=== PATIENT | male | born 1965 | race Caucasian/White ===

== ENCOUNTER 2019-06-20 13:28 | Inpatient (IN) ==
[2019-06-20 14:02] LABS: Basophils % 0.4 %; Eosinophils # 0.2 K/mcL (0.0-0.6); Eosinophils % 2.7 %; Hematocrit 26.2 % (37.5-50.1); Hemoglobin 8.1 g/dL (12.9-16.9); Immature Granulocytes % 0.4 % (0-4); Lymphocytes # 1.2 K/mcL (0.6-4.6); Lymphocytes % 16.6 %; Mean Corpuscular HGB Conc 30.9 g/dL (31.6-35.5); Mean Corpuscular Hemoglobin 29.1 pg (28.0-33.3); Mean Corpuscular Volume 94.2 fL (83.0-100.0); Mean Platelet Volume 10.7 fL (9.4-12.4); Monocytes # 0.5 K/mcL (0.0-1.3); Monocytes % 7.1 %; Neutrophils # 5.3 K/mcL (1.6-8.9); Platelet Count 280 K/mcL (140-400); Red Blood Count 2.78 M/mcL (4.19-5.50); Red Cell Distribution Width 13.8 % (11.5-14.5); Segmented Neutrophils % 72.8 %; White Blood Count 7.3 K/mcL (4.3-11.1)
[2019-06-20 14:09] LABS: Prothrombin Time 11.4 Seconds (9.4-12.1)
[2019-06-20 14:29] LABS: Bilirubin,Urine Negative (Negative); Blood,Urine Moderate (Negative); Clarity,Urine Clear (Clear); Color,Urine Yellow (Yellow); Glucose,Urine (UA) 100 mg/dL (Normal); Ketones,Urine Negative (Negative); Leukocyte Esterase,Urine Negative (Negative); Nitrite,Urine Negative (Negative); PH,Urine 5.5 pH Units (5.0-8.0); Protein,Urine >=300 mg/dL (Neg-Trace); Specific Gravity,Urine 1.015 (1.010-1.025); Urobilinogen,Urine Normal (Normal)
[2019-06-20 14:30] LABS: Calcium 7.4 mg/dL (8.6-10.3); Potassium 5.1 mEq/L (3.5-5.1)
[2019-06-20 14:31] LABS: Bacteria,Urine None Seen per hpf (None-Few); Hyaline Casts,Urine None Seen per lpf (None-Few); Squamous Epithelial Cell,Urine Many per lpf (None-Few)
[2019-06-20] MEDS ORDERED: Naloxone 0.4 MG/ML INJ IVP PRN (15:45)
[2019-06-20] MEDS ORDERED: Nicotine 2 MG GUM BC PRN (15:49)
[2019-06-20] MEDS ORDERED: Dextrose Gel 15 GM/37.5 ML TUBE PO PRN ×2 (15:50)
[2019-06-20] MEDS ORDERED: D5% in Water 1,000 ML IVC PRN (15:50)
[2019-06-20] MEDS ORDERED: *HR* Dextrose 50 % in Water (Syg) 50 ML SYRINGE IVP PRN (15:50)
[2019-06-20] MEDS: Insulin LISPRO 300 UNITS/3 ML VIAL SQ SCH ×2 (18:06→21:34)
[2019-06-20] MEDS: Nicotine 21 MG PATCH.TD24 TD SCH (18:14)
[2019-06-20] MEDS ORDERED: carvediloL 25 MG TABLET PO SCH (21:00)
[2019-06-21] MEDS: Levothyroxine 25 MCG TABLET PO SCH (05:30)
[2019-06-21 05:59] LABS: Basophils # 0.1 K/mcL (0.0-0.2); Basophils % 0.7 %; Eosinophils # 0.2 K/mcL (0.0-0.6); Eosinophils % 2.7 %; Hematocrit 23.8 % (37.5-50.1); Hemoglobin 7.5 g/dL (12.9-16.9); Immature Granulocytes % 0.8 % (0-4); Lymphocytes # 1.5 K/mcL (0.6-4.6); Lymphocytes % 19.1 %; Mean Corpuscular HGB Conc 31.5 g/dL (31.6-35.5); Mean Corpuscular Volume 91.9 fL (83.0-100.0); Mean Platelet Volume 11.1 fL (9.4-12.4); Monocytes # 0.5 K/mcL (0.0-1.3); Monocytes % 7.1 %; Neutrophils # 5.3 K/mcL (1.6-8.9); Platelet Count 282 K/mcL (140-400); Red Blood Count 2.59 M/mcL (4.19-5.50); Red Cell Distribution Width 13.9 % (11.5-14.5); Segmented Neutrophils % 69.6 %; White Blood Count 7.7 K/mcL (4.3-11.1)
[2019-06-21 06:14] LABS: Calcium 6.9 mg/dL (8.6-10.3); Phosphorous 6.2 mg/dL (2.7-4.5); Potassium 4.9 mEq/L (3.5-5.1)
[2019-06-21 06:15] LABS: % Iron Saturation 5 % (20-55); Iron 14 mcg/dL (65-175); Transferrin 193 mg/dL (203-362)
[2019-06-21] MEDS ORDERED: 0.9 % Sodium Chloride 250 ML IVC PRN (06:50)
[2019-06-21] MEDS ORDERED: 0.9 % Sodium Chloride 1,000 ML PRIME SCH (07:00)
[2019-06-21] MEDS ORDERED: carvediloL 25 MG TABLET PO SCH ×2 (08:00→17:00)
[2019-06-21 08:48] LABS: Hepatitis B Surface Antibody 4.58 mIU/mL
[2019-06-21 09:00] LABS: Hepatitis B Surface Antigen Nonreactive (Nonreactive)
[2019-06-21] MEDS ORDERED: NIFEdipine XL (24 HR) 60 MG TAB.ER.24 PO SCH (09:00)
[2019-06-21] MEDS: Insulin LISPRO 300 UNITS/3 ML VIAL SQ SCH ×4 (09:28→20:35)
[2019-06-21] MEDS: Nicotine 21 MG PATCH.TD24 TD SCH (09:28)
[2019-06-21] MEDS ORDERED: Ferumoxytol 510 MG in 0.9 % Sodium Chloride 100 ML IVPB ONE (11:40)
[2019-06-21] MEDS ORDERED: Heparin 1,000 UNITS/500 mL 500 ML ONE (13:23)
[2019-06-21] MEDS ORDERED: *HR* FentaNYL (PF) 100 MCG/2 ML VIAL IVP ONE (14:51)
[2019-06-21] MEDS ORDERED: *HR* Midazolam HCl 2 MG/2 ML VIAL IVP ONE (14:51)
[2019-06-21] MEDS ORDERED: 0.9 % Sodium Chloride 500 ML ONE (14:58)
[2019-06-21] MEDS ORDERED: CeFAZolin Premix DUPLEX 2,000 MG/50 ML BAG IVPB ONE (15:15)
[2019-06-21] MEDS: *HR* Heparin 5,000 UNIT/ML VIAL SQ SCH (17:05)
[2019-06-21 20:32] LABS: Hepatitis B Surface Antigen Nonreactive (Nonreactive)
[2019-06-21] MEDS ORDERED: *HR* OxyCODONE Immed Rel 5 MG TABLET PO ONE (20:43)
[2019-06-21 21:02] LABS: Hepatitis B Core IgM Nonreactive (Nonreactive)
[2019-06-21 21:03] LABS: Hepatitis A Antibody IgM Nonreactive (Nonreactive); Hepatitis C Virus Antibody Nonreactive (Nonreactive)
[2019-06-21 21:04] LABS: HIV-1&2 Antibody & p24 Ag Nonreactive (Nonreactive)
[2019-06-22] MEDS: *HR* Heparin 5,000 UNIT/ML VIAL SQ SCH (05:36)
[2019-06-22] MEDS: Levothyroxine 25 MCG TABLET PO SCH (05:36)
[2019-06-22 06:06] LABS: Hematocrit 25.3 % (37.5-50.1); Hemoglobin 8.1 g/dL (12.9-16.9); Mean Corpuscular Hemoglobin 28.5 pg (28.0-33.3); Mean Corpuscular Volume 89.1 fL (83.0-100.0); Mean Platelet Volume 10.7 fL (9.4-12.4); Platelet Count 284 K/mcL (140-400); Red Blood Count 2.84 M/mcL (4.19-5.50); White Blood Count 9.3 K/mcL (4.3-11.1)
[2019-06-22 07:02] LABS: Calcium 7.4 mg/dL (8.6-10.3); Potassium 4.3 mEq/L (3.5-5.1)
[2019-06-22] MEDS ORDERED: 0.9 % Sodium Chloride 250 ML IVC PRN (07:38)
[2019-06-22 07:47] VITALS: BP 171/85
[2019-06-22] MEDS: Insulin LISPRO 300 UNITS/3 ML VIAL SQ SCH (07:56)
[2019-06-22] MEDS: Nicotine 21 MG PATCH.TD24 TD SCH (07:57)
== END 2019-06-22 11:24 | disposition left against medical advice (07) | DRG 683 ==
LOC: EMEROOARM 13:28 → 2ANU 16:59
PROVIDERS: ADMIT Internal Medicine; ATTEND Internal Medicine
PROC: IRPERMA (2019-06-21 14:45)

== ENCOUNTER 2019-07-18 17:38 | Inpatient (IN) ==
[2019-07-18] MEDS ORDERED: Ipratropium/Albuterol Neb 3 ML ONE (17:40)
[2019-07-18] MEDS ORDERED: levoFLOXacin 750 MG/150 ML 750 MG/150 ML BAG IVPB ONE (17:43)
[2019-07-18] MEDS ORDERED: Piperacillin/Tazobactam 3.375 GM in Water for inj. (sterile) 20 ML IVP ONE (17:43)
[2019-07-18] MEDS ORDERED: Nitroglycerin 25 MG/250 ML INFUS..BTL IVC ONE (17:43)
--- NOTE | 2019-07-18 17:44 | Emergency Department Note ---
Disposition Clinical Impression: ESRD (end stage renal disease), Hyperkalemia, Elevated troponin Right lower lobe pneumonia Qualifiers: Pneumonia type: due to unspecified organism Qualified Code(s): J18.1 - Lobar pneumonia, unspecified organism Sepsis Qualifiers: Sepsis type: sepsis due to unspecified organism Sepsis acute organ dysfunction status: unspecified Qualified Code(s): A41.9 - Sepsis, unspecified organism Pulmonary edema Qualifiers: Chronicity: acute Qualified Code(s): J81.0 - Acute pulmonary edema Dyspnea Qualifiers: Dyspnea type: unspecified Qualified Code(s): R06.00 - Dyspnea, unspecified Disposition: Admitted As Inpatient Forms: ED Satisfaction Letter Time of Disposition: 19:06 General Adult HPI - General Chief complaint: ED Shortness of Breath/Dyspnea Time Seen by Provider: 07/18/19 17:42 Source: patient, EMS Mode of arrival: EMS Limitations: no limitations Nursing Notes Reviewed: Yes Vital Signs Reviewed: Yes - History of Present Illness HPI Narrative: Patient is a 54-year-old male with a past medical history including hypertension, diabetes, CHF, end-stage renal disease and recently started dialysis however has not had dialysis in approximately 2 weeks, presenting with a chief complaint of shortness of breath since this morning. The patient states he has not done dialysis secondary to insurance reasons and has not had it in approximately 2 weeks. This morning, the patient started to become short of breath. He had a follow-up appointment with his primary care physician. Shortness of breath was progressively worsening this afternoon to the point where he was unable to ambulate or talk. He denies any chest pain with it. Primary care physician had a concern for flash pulmonary edema and gave him Lasix and EMS was called and brought the patient here. In route, the patient was placed on 4 L of oxygen with oxygen saturation 94%. He was then eventually placed on CPAP with some improvement in his oxygenation. He did have a heart rate in the 140s and systolic blood pressure was 240 per EMS. Patient denies any change in cough, denies recent fevers or chills, chest pain, abdominal pain, nausea or vomiting, diarrhea. Pain Scale: 0 - Related Data Home Medications Medication Instructions Recorded Confirmed Carvedilol 12.5 mg PO BID 06/20/19 07/16/19 Glimepiride [Amaryl] 4 mg PO DAILY 06/20/19 07/16/19 Levothyroxine [Synthroid] 25 mcg PO DAILY 06/20/19 07/16/19 Lisinopril [Zestril] 20 mg PO DAILY 06/22/19 07/16/19 Allergies Allergy/AdvReac Type Severity Reaction Status Date / Time No Known Allergies Allergy Verified 07/16/19 04:48 All systems ED: reviewed and negative except as stated. Review of Systems: As Per HPI Constitutional: Denies: fever, chills Cardiovascular: Denies: chest pain Respiratory: Reports: cough, dyspnea Gastrointestinal: Denies: abdominal pain, nausea, vomiting, diarrhea Musculoskeletal: Denies: back pain Past Medical History - Past Medical History Attestation: Yes The following information was validated with the patient. Source: patient Medical history: Reports: CHF, diabetes, hypertension, renal disease Surgical history: Reports: no surgical history Psychiatric history: Reports: no psych history - Social History Smoking Status: Current every day smoker Smokeless Tobacco Status: No Alcohol use: Reports: occasionally Drug use: Reports: none Physical Exam - General Limitations: no limitations General appearance: alert, in distress - Head Head exam: atraumatic, normocephalic - Eye Eye exam: Present: normal appearance, EOMI - ENT ENT exam: normal exam, normal oropharynx - Neck Neck exam: Present: normal inspection, trachea midline, other (no jvd) - Chest Chest inspection: Present: normal inspection, symmetric chest wall rise - Respiratory Respiratory exam: Present: other (Diminished breath sounds bilaterally with scattered crackles) - Cardiovascular Cardiovascular exam: Present: tachycardia, normal heart sounds - Abdominal Exam Abdominal exam: Present: soft, Non-Tender. Absent: distention - Extremities Exam Extremities exam: Present: normal capillary refill, other (2+ pitting bilateral lower extremity edema). Absent: calf tenderness - Neurological Exam Neurological exam: Present: alert, oriented X3 - Psychiatric Psychiatric exam: Present: normal affect, normal mood - Skin Skin exam: Present: warm, dry. Absent: diaphoresis, pallor Course Vital Signs Temperature 97.9 F 07/18/19 17:40 Pulse Rate 122 07/18/19 17:40 Respiratory Rate 22 07/18/19 17:40 Blood Pressure 217/129 07/18/19 17:40 O2 Sat by Pulse Oximetry 100 07/18/19 17:40 Temperature 97.9 F 07/18/19 17:40 Pulse Rate 117 07/18/19 18:52 Respiratory Rate 16 07/18/19 18:52 Blood Pressure 162/100 07/18/19 18:52 O2 Sat by Pulse Oximetry 100 07/18/19 18:52 Oxygen Delivery Oxygen Delivery Bipap Medical Decision Making - [facility] Narrative Medical decision making narrative: Patient presented on CPAP and he was transitioned to BiPAP with respiratory at bedside. Initial blood pressure was 217/129. He was also tachycardic with heart rate in the 120s. His significant lower extremity pitting edema 2+ bilaterally. He has not had dialysis in 2 weeks. He has diminished breath sounds bilaterally with scattered crackles. Patient is afebrile however meets SIRS criteria low obtain lactate, blood cultures, treat for possible pneumonia with vancomycin, Zosyn, azithromycin. We will hold off on IV fluids as we do have a concern for fluid overload, flash pulmonary edema as the patient has not had dialysis in several weeks. Troponin, BNP, CBC, BMP, will also be obtained. Chest x-ray was obtained. Patient was started on a nitroglycerin drip. After several minutes on BiPAP, the patient did have improvement in his breathing and was able to hold the [place] station. Patient does state he is full code. Patient has a permacath. 18:20 Patient remained stable on BiPAP. Blood pressures did improve. Potassium is 5.8 and creatinine is elevated greater than 6. We will give insulin, dextrose, calcium gluconate, albuterol treatment. He also has an elevated troponin of 0.04 notified by lab. EKG does show tall T wave changes in lead II and lead III. 19:00 Is discussed with nephrology, Dr. Thomas, and patient will have dialysis tonight. The patient was accepted for admission by Dr. Pedro, hospitalist. - Medical Records Medical records reviewed: Yes I reviewed the patient's medical records. - Lab Data Lab results reviewed: Yes I reviewed the patient's lab results. Result diagrams: 07/18/19 17:39 07/18/19 17:39 Lab Results 07/18/19 07/18/19 07/18/19 Range/Units 17:39 17:39 17:39 WBC 12.3 H (4.3-11.1) K/mcL RBC 3.00 L (4.19-5.50) M/mcL Hgb 8.7 L (12.9-16.9) g/dL Hct 28.0 L (37.5-50.1) % MCV 93.3 (83.0-100.0) fL MCH 29.0 (28.0-33.3) pg MCHC 31.1 L (31.6-35.5) g/dL RDW 14.8 H (11.5-14.5) % Plt Count 292 (140-400) K/mcL MPV 11.0 (9.4-12.4) fL Immature Gran % 0.7 (0-4) % Seg Neutrophils % 81.6 % Lymphocytes % 11.7 % Monocytes % 3.5 % Eosinophils % 1.8 % Basophils % 0.7 % Neutrophils # 10.0 H (1.6-8.9) K/mcL Lymphocytes # 1.4 (0.6-4.6) K/mcL Monocytes # 0.4 (0.0-1.3) K/mcL Eosinophils # 0.2 (0.0-0.6) K/mcL Basophils # 0.1 (0.0-0.2) K/mcL PT 11.2 (9.4-12.1) Seconds INR 1.0 APTT 33.5 (26.0-36.0) Seconds ABG pH (7.32-7.45) pH Units ABG pCO2 (35-45) mmHg ABG pO2 (85-104) mmHg ABG HCO3 (21-27) mEq/L ABG Total CO2 (20-26) mEq/L ABG O2 Saturation (95-98) % ABG Base Excess (-2 to 3) mEq/L O2 Delivery Device Inspired O2 (1-15=lpm [id number]=%) PEEP cm H2O Sodium 139 (136-145) mEq/L Potassium 5.8 H (3.5-5.1) mEq/L Chloride 113 H (98-107) mEq/L Carbon Dioxide 13 L (23-29) mEq/L BUN 95 H (6-20) mg/dL Creatinine 6.73 H (0.70-1.30) mg/dL Est GFR ( Amer) 10 L (> 60) Est GFR (Non-Af Amer) 9 L (> 60) BUN/Creatinine Ratio 14 (6-26) Glucose 213 H (70-105) mg/dL Calculated Osmolality 324 H (280-300) Lactic Acid (0.5-2.2) mmol/L Calcium 7.4 L (8.6-10.3) mg/dL Phosphorus 6.6 H (2.7-4.5) mg/dL Magnesium 1.7 (1.6-2.6) mg/dL Total Bilirubin 0.2 L (0.3-1.0) mg/dL Direct Bilirubin 0.0 (0.0-0.2) mg/dL Indirect Bilirubin 0.2 (0.0-1.2) mg/dL AST 27 (13-39) Units/L ALT 31 (7-52) Units/L Alkaline Phosphatase 132 H (34-104) Units/L Troponin I 0.04 H* (< 0.04) ng/mL B-Natriuretic Peptide (Less than 100) pg/mL Serum Total Protein 7.0 (6.4-8.9) g/dL Albumin 3.6 (3.5-5.7) g/dL Globulin 3.4 (2.4-3.5) g/dL Albumin/Globulin Ratio 1.1 (1.1-2.2) 07/18/19 07/18/19 07/18/19 Range/Units 17:39 17:39 17:42 WBC (4.3-11.1) K/mcL RBC (4.19-5.50) M/mcL Hgb (12.9-16.9) g/dL Hct (37.5-50.1) % MCV (83.0-100.0) fL MCH (28.0-33.3) pg MCHC (31.6-35.5) g/dL RDW (11.5-14.5) % Plt Count (140-400) K/mcL MPV (9.4-12.4) fL Immature Gran % (0-4) % Seg Neutrophils % % Lymphocytes % % Monocytes % % Eosinophils % % Basophils % % Neutrophils # (1.6-8.9) K/mcL Lymphocytes # (0.6-4.6) K/mcL Monocytes # (0.0-1.3) K/mcL Eosinophils # (0.0-0.6) K/mcL Basophils # (0.0-0.2) K/mcL PT (9.4-12.1) Seconds INR APTT (26.0-36.0) Seconds ABG pH 7.25 L (7.32-7.45) pH Units ABG pCO2 26 L (35-45) mmHg ABG pO2 508 H (85-104) mmHg ABG HCO3 11 L (21-27) mEq/L ABG Total CO2 12 L (20-26) mEq/L ABG O2 Saturation 100 H (95-98) % ABG Base Excess -14 L (-2 to 3) mEq/L O2 Delivery Device BiPAP Inspired O2 100.0 (1-15=lpm [id number]=%) PEEP 7 cm H2O Sodium (136-145) mEq/L Potassium (3.5-5.1) mEq/L Chloride (98-107) mEq/L Carbon Dioxide (23-29) mEq/L BUN (6-20) mg/dL Creatinine (0.70-1.30) mg/dL Est GFR ( Amer) (> 60) Est GFR (Non-Af Amer) (> 60) BUN/Creatinine Ratio (6-26) Glucose (70-105) mg/dL Calculated Osmolality (280-300) Lactic Acid 0.7 (0.5-2.2) mmol/L Calcium (8.6-10.3) mg/dL Phosphorus (2.7-4.5) mg/dL Magnesium (1.6-2.6) mg/dL Total Bilirubin (0.3-1.0) mg/dL Direct Bilirubin (0.0-0.2) mg/dL Indirect Bilirubin (0.0-1.2) mg/dL AST (13-39) Units/L ALT (7-52) Units/L Alkaline Phosphatase (34-104) Units/L Troponin I (< 0.04) ng/mL B-Natriuretic Peptide 1063 H (Less than 100) pg/mL Serum Total Protein (6.4-8.9) g/dL Albumin (3.5-5.7) g/dL Globulin (2.4-3.5) g/dL Albumin/Globulin Ratio (1.1-2.2) - Radiology Data Radiology results reviewed: Yes I reviewed the patient's radiology results. Chest X-Ray 07/18/19 00:00 IMPRESSION: 1. New right base airspace opacity. In the proper clinical setting, finding would be indicative of pneumonia. 2. Diffuse reticulation of the interstitium, new since prior exam. Differential includes interstitial edema. D/ / Bob Georges MD / Bob Georges MD Interpreting Provider: Bob Georges MD Attestation Statement - Attestation Attestation: Corinne Glasgow D.O., examined this patient and my medical decision-making was reviewed with the Resident Physician. I agree with the documented findings, disposition and treatment plan as described except to the extent set forth below.
[2019-07-18 17:49] LABS: ABG Base Excess -14 mEq/L (-2 to 3); ABG HCO3 11 mEq/L (21-27); ABG Oxygen Saturation 100 % (95-98); ABG PCO2 26 mmHg (35-45); ABG PH 7.25 pH Units (7.32-7.45); ABG PO2 508 mmHg (85-104); ABG TCO2 12 mEq/L (20-26); Blood Gas PEEP 7 cm H2O
[2019-07-18] MEDS ORDERED: Piperacillin/Tazobactam 3.375 GM in 0.9 % Sodium Chloride Mini Bag 100 ML IVPB ONE (17:49)
[2019-07-18] MEDS: Nitroglycerin 25 MG/250 ML INFUS..BTL IVC SCH (17:50)
--- NOTE | 2019-07-18 17:56 | Emergency Department Note ---
Disposition Clinical Impression: ESRD (end stage renal disease), Hyperkalemia, Elevated troponin Right lower lobe pneumonia Qualifiers: Pneumonia type: due to unspecified organism Qualified Code(s): J18.1 - Lobar pneumonia, unspecified organism Sepsis Qualifiers: Sepsis type: sepsis due to unspecified organism Sepsis acute organ dysfunction status: unspecified Qualified Code(s): A41.9 - Sepsis, unspecified organism Pulmonary edema Qualifiers: Chronicity: acute Qualified Code(s): J81.0 - Acute pulmonary edema Dyspnea Qualifiers: Dyspnea type: unspecified Qualified Code(s): R06.00 - Dyspnea, unspecified Disposition: Admitted As Inpatient Condition: Fair Forms: ED Satisfaction Letter Time of Disposition: 19:03 General Adult HPI - General Chief complaint: ED Shortness of Breath/Dyspnea Stated complaint: Shortness of breath Time Seen by Provider: 07/18/19 17:42 Source: patient, EMS Mode of arrival: EMS Limitations: no limitations Nursing Notes Reviewed: Yes Vital Signs Reviewed: Yes - History of Present Illness Pt Subjective Complaint: Shortness of breath Pain Scale: 0 - Related Data Home Medications Medication Instructions Recorded Confirmed Carvedilol 12.5 mg PO BID 06/20/19 07/18/19 Glimepiride [Amaryl] 4 mg PO DAILY 06/20/19 07/18/19 Levothyroxine [Synthroid] 25 mcg PO DAILY 06/20/19 07/18/19 Lisinopril [Zestril] 20 mg PO DAILY 06/22/19 07/18/19 Allergies Allergy/AdvReac Type Severity Reaction Status Date / Time No Known Allergies Allergy Verified 07/16/19 04:48 Past Medical History - Past Medical History Medical history: Reports: CHF, diabetes, hypertension, renal disease Surgical history: Reports: no surgical history Psychiatric history: Reports: no psych history - Social History Smoking Status: Current every day smoker Smokeless Tobacco Status: No Alcohol use: Reports: occasionally Drug use: Reports: none Physical Exam - General Limitations: no limitations General appearance: alert, in distress Course Vital Signs Temperature 97.9 F 07/18/19 17:40 Pulse Rate 122 07/18/19 17:40 Respiratory Rate 22 07/18/19 17:40 Blood Pressure 217/129 07/18/19 17:40 O2 Sat by Pulse Oximetry 100 07/18/19 17:40 Temperature 97.9 F 07/18/19 17:40 Pulse Rate 117 07/18/19 18:52 Respiratory Rate 16 07/18/19 18:52 Blood Pressure 162/100 07/18/19 18:52 O2 Sat by Pulse Oximetry 100 07/18/19 18:52 Oxygen Delivery Oxygen Delivery Bipap Medical Decision Making - Lab Data Lab results reviewed: Yes I reviewed the patient's lab results. Result diagrams: 07/18/19 17:39 07/18/19 17:39 Lab Results 07/18/19 07/18/19 07/18/19 Range/Units 17:39 17:39 17:39 WBC 12.3 H (4.3-11.1) K/mcL RBC 3.00 L (4.19-5.50) M/mcL Hgb 8.7 L (12.9-16.9) g/dL Hct 28.0 L (37.5-50.1) % MCV 93.3 (83.0-100.0) fL MCH 29.0 (28.0-33.3) pg MCHC 31.1 L (31.6-35.5) g/dL RDW 14.8 H (11.5-14.5) % Plt Count 292 (140-400) K/mcL MPV 11.0 (9.4-12.4) fL Immature Gran % 0.7 (0-4) % Seg Neutrophils % 81.6 % Lymphocytes % 11.7 % Monocytes % 3.5 % Eosinophils % 1.8 % Basophils % 0.7 % Neutrophils # 10.0 H (1.6-8.9) K/mcL Lymphocytes # 1.4 (0.6-4.6) K/mcL Monocytes # 0.4 (0.0-1.3) K/mcL Eosinophils # 0.2 (0.0-0.6) K/mcL Basophils # 0.1 (0.0-0.2) K/mcL PT 11.2 (9.4-12.1) Seconds INR 1.0 APTT 33.5 (26.0-36.0) Seconds ABG pH (7.32-7.45) pH Units ABG pCO2 (35-45) mmHg ABG pO2 (85-104) mmHg ABG HCO3 (21-27) mEq/L ABG Total CO2 (20-26) mEq/L ABG O2 Saturation (95-98) % ABG Base Excess (-2 to 3) mEq/L O2 Delivery Device Inspired O2 (1-15=lpm hr98-350=%) PEEP cm H2O Sodium 139 (136-145) mEq/L Potassium 5.8 H (3.5-5.1) mEq/L Chloride 113 H (98-107) mEq/L Carbon Dioxide 13 L (23-29) mEq/L BUN 95 H (6-20) mg/dL Creatinine 6.73 H (0.70-1.30) mg/dL Est GFR ( Amer) 10 L (> 60) Est GFR (Non-Af Amer) 9 L (> 60) BUN/Creatinine Ratio 14 (6-26) Glucose 213 H (70-105) mg/dL Calculated Osmolality 324 H (280-300) Lactic Acid (0.5-2.2) mmol/L Calcium 7.4 L (8.6-10.3) mg/dL Phosphorus 6.6 H (2.7-4.5) mg/dL Magnesium 1.7 (1.6-2.6) mg/dL Total Bilirubin 0.2 L (0.3-1.0) mg/dL Direct Bilirubin 0.0 (0.0-0.2) mg/dL Indirect Bilirubin 0.2 (0.0-1.2) mg/dL AST 27 (13-39) Units/L ALT 31 (7-52) Units/L Alkaline Phosphatase 132 H (34-104) Units/L Troponin I 0.04 H* (< 0.04) ng/mL B-Natriuretic Peptide (Less than 100) pg/mL Serum Total Protein 7.0 (6.4-8.9) g/dL Albumin 3.6 (3.5-5.7) g/dL Globulin 3.4 (2.4-3.5) g/dL Albumin/Globulin Ratio 1.1 (1.1-2.2) 07/18/19 07/18/19 07/18/19 Range/Units 17:39 17:39 17:42 WBC (4.3-11.1) K/mcL RBC (4.19-5.50) M/mcL Hgb (12.9-16.9) g/dL Hct (37.5-50.1) % MCV (83.0-100.0) fL MCH (28.0-33.3) pg MCHC (31.6-35.5) g/dL RDW (11.5-14.5) % Plt Count (140-400) K/mcL MPV (9.4-12.4) fL Immature Gran % (0-4) % Seg Neutrophils % % Lymphocytes % % Monocytes % % Eosinophils % % Basophils % % Neutrophils # (1.6-8.9) K/mcL Lymphocytes # (0.6-4.6) K/mcL Monocytes # (0.0-1.3) K/mcL Eosinophils # (0.0-0.6) K/mcL Basophils # (0.0-0.2) K/mcL PT (9.4-12.1) Seconds INR APTT (26.0-36.0) Seconds ABG pH 7.25 L (7.32-7.45) pH Units ABG pCO2 26 L (35-45) mmHg ABG pO2 508 H (85-104) mmHg ABG HCO3 11 L (21-27) mEq/L ABG Total CO2 12 L (20-26) mEq/L ABG O2 Saturation 100 H (95-98) % ABG Base Excess -14 L (-2 to 3) mEq/L O2 Delivery Device BiPAP Inspired O2 100.0 (1-15=lpm ov02-136=%) PEEP 7 cm H2O Sodium (136-145) mEq/L Potassium (3.5-5.1) mEq/L Chloride (98-107) mEq/L Carbon Dioxide (23-29) mEq/L BUN (6-20) mg/dL Creatinine (0.70-1.30) mg/dL Est GFR ( Amer) (> 60) Est GFR (Non-Af Amer) (> 60) BUN/Creatinine Ratio (6-26) Glucose (70-105) mg/dL Calculated Osmolality (280-300) Lactic Acid 0.7 (0.5-2.2) mmol/L Calcium (8.6-10.3) mg/dL Phosphorus (2.7-4.5) mg/dL Magnesium (1.6-2.6) mg/dL Total Bilirubin (0.3-1.0) mg/dL Direct Bilirubin (0.0-0.2) mg/dL Indirect Bilirubin (0.0-1.2) mg/dL AST (13-39) Units/L ALT (7-52) Units/L Alkaline Phosphatase (34-104) Units/L Troponin I (< 0.04) ng/mL B-Natriuretic Peptide 1063 H (Less than 100) pg/mL Serum Total Protein (6.4-8.9) g/dL Albumin (3.5-5.7) g/dL Globulin (2.4-3.5) g/dL Albumin/Globulin Ratio (1.1-2.2) - Radiology Data Radiology results reviewed: Yes I reviewed the patient's radiology results. Chest X-Ray 07/18/19 00:00 IMPRESSION: 1. New right base airspace opacity. In the proper clinical setting, finding would be indicative of pneumonia. 2. Diffuse reticulation of the interstitium, new since prior exam. Differential includes interstitial edema. D/ / Bob Georges MD / Bob Georges MD Interpreting Provider: Bob Georges MD Critical Care Time Critical Care Time: Yes Total Critical Care Time: 35 Attestation: Critical care time is going separable billable procedures of 35 minutes given the patient's abnormal vital signs, respiratory distress requiring and NIPPV, in conjunction with coordination with specialty care and admission. [place] - [place] Situation: Demographics, MOA Background: Presenting Complaint, Relevant PMH, Meds, & Allergies Assessment: Vital Signs, Course and respsone to treatment, Exam Concerns, Patient/Family Expectation, Pertinant Lab Results Recommendation: Barrier(s) to disposition, Recommendation based on pending studies, treatments, or consults SRaimundo Report Given to: Dr. Willis Mcdonough Repor Time: 19:03 Attestation Statement - Attestation Attestation: Corinne Glasgow D.O., examined this patient and my medical decision-making was reviewed with the Resident Physician. I agree with the documented findings, disposition and treatment plan as described except to the extent set forth below. This is a 54-year-old male with a history of ESRD recently started on dialysis last treatment was approximately 2 weeks ago who presents via EMS due to respiratory distress. The patient states he was seen by his PCP today. He felt fine yesterday but has had a cough today and felt increasingly short of breath. Patient was started on nasal cannula then CPAP for work of breathing in route. EMS reports he was given a DuoNeb treatment as well as 40 more grams of Lasix. He states he has not had dialysis in 2 weeks. He denies any chest pain, abdom inal pain. He has been short of breath with a cough with phlegm production. No fevers. Has had some lower shimmy swelling as well. No other complaints. General: Alert, moderate distress, anxious appearing HENT: Normocephalic, Atraumatic Neck: Supple Cardiovascular: Tachycardic, regular rhythm. No appreciable murmurs Respiratory: Diminished breath sounds bilaterally. Tachypnea. Abdominal: Soft, non tender. No peritoneal findings Extremities: 1+ bilateral lower extremity pitting edema Neuro: Alert, Mentating appropriately, No focal deficits Skin: Warm, Dry Plan: Patient is noted to be tachycardic and tachypnea. He is profoundly hypertensive here 220s over 120s. Patient will remain on BiPAP, initiation of nitroglycerin drip as well due to concern for pulmonary edema. We will also obtain labs, lactic acid, blood cultures. Broad-spectrum antibiotic coverage given chest x-ray findings and admission. ED Procedure Note: EKG interpretation - I agree with the resident physician's documentation and interpretation of the patient's EKG. Sinus tachycardia with a rate of 121. Normal axis. Normal intervals. Normal R-wave progression. He has tall T waves in leads V2 and V3. No gross ST elevations or depressions. No acute ischemic findings. Patient is tolerating BiPAP well. Labs are reviewed showing chronic anemia, h yperkalemia of 5.8 as well as renal failure with a creatinine of 6.7. Given these findings the patient was ordered albuterol, insulin, D50 and calcium. I immediately spoke with the on-call shipping clerk, Dr. Diaz and discussed the patient's presentation as well as current concerns. He is going to call the dialysis unit and plan for dialysis tonight. Patient remains on IV nitroglycerin drip for his significant hypertension. Patient received Lasix by EMS. He is getting broad-spectrum anabiotic coverage for right lower lobe pneumonia. The patient was given aspirin for his elevated troponin. Patient will be admitted to the hospitalist for further management. Although the patient meets sepsis criteria his lactate is normal and he remains hypertensive if anything. We are holding on fluids at this point given his volume overload status.
[2019-07-18 17:58] LABS: Basophils # 0.1 K/mcL (0.0-0.2); Basophils % 0.7 %; Eosinophils # 0.2 K/mcL (0.0-0.6); Eosinophils % 1.8 %; Hemoglobin 8.7 g/dL (12.9-16.9); Immature Granulocytes % 0.7 % (0-4); Lymphocytes # 1.4 K/mcL (0.6-4.6); Lymphocytes % 11.7 %; Mean Corpuscular HGB Conc 31.1 g/dL (31.6-35.5); Mean Corpuscular Volume 93.3 fL (83.0-100.0); Monocytes # 0.4 K/mcL (0.0-1.3); Monocytes % 3.5 %; Platelet Count 292 K/mcL (140-400); Red Cell Distribution Width 14.8 % (11.5-14.5); Segmented Neutrophils % 81.6 %; White Blood Count 12.3 K/mcL (4.3-11.1)
[2019-07-18 18:09] LABS: Prothrombin Time 11.2 Seconds (9.4-12.1)
[2019-07-18 18:11] LABS: Activated Partial Thrombo Time 33.5 Seconds (26.0-36.0)
[2019-07-18 18:20] LABS: Albumin 3.6 g/dL (3.5-5.7); Albumin/Globulin Ratio 1.1 (1.1-2.2); Bilirubin,Indirect 0.2 mg/dL (0.0-1.2); Bilirubin,Total 0.2 mg/dL (0.3-1.0); Calcium 7.4 mg/dL (8.6-10.3); Globulin 3.4 g/dL (2.4-3.5); Magnesium 1.7 mg/dL (1.6-2.6); Phosphorous 6.6 mg/dL (2.7-4.5); Potassium 5.8 mEq/L (3.5-5.1); Troponin I 0.04 ng/mL (< 0.04)
[2019-07-18] MEDS ORDERED: Albuterol 2.5 MG/3 ML NEBULIZER IH ONE (18:21)
[2019-07-18] MEDS ORDERED: *HR* Dextrose 50 % in Water (Syg) 50 ML SYRINGE IVP ONE (18:21)
[2019-07-18] MEDS ORDERED: Insulin Human Regular 10 UNIT in 0.9 % Sodium Chloride 10 ML IV ONE (18:21)
[2019-07-18] MEDS ORDERED: Calcium Gluconate 1gm/50mL 1 GM/50 ML BAG IVPB ONE (18:22)
[2019-07-18] MEDS ORDERED: Aspirin 325 MG TABLET PO ONE (18:41)
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
[2019-07-18] MEDS ORDERED: 0.9 % Sodium Chloride 250 ML IVC PRN (19:39)
[2019-07-18] MEDS ORDERED: 0.9 % Sodium Chloride 1,000 ML PRIME SCH (19:45)
[2019-07-18] MEDS ORDERED: Naloxone 0.4 MG/ML INJ IVP PRN (20:20)
[2019-07-18] MEDS ORDERED: *HR* Heparin 10,000 UNIT/10 ML VIAL IV PRN (20:22)
[2019-07-18] MEDS ORDERED: 0.9 % Sodium Chloride 1,000 ML ONE (20:28)
[2019-07-18] MEDS ORDERED: D5% in Water 1,000 ML IVC PRN (21:01)
[2019-07-18] MEDS ORDERED: Dextrose Gel 15 GM/37.5 ML TUBE PO PRN ×2 (21:01)
[2019-07-18] MEDS ORDERED: *HR* Dextrose 50 % in Water (Syg) 50 ML SYRINGE IVP PRN (21:01)
[2019-07-18] MEDS ORDERED: Insulin LISPRO 300 UNITS/3 ML VIAL SQ SCH (21:15)
[2019-07-18 22:13] LABS: Bilirubin,Urine Negative (Negative); Blood,Urine Moderate (Negative); Clarity,Urine Cloudy (Clear); Color,Urine Yellow (Yellow); Glucose,Urine (UA) 250 mg/dL (Normal); Ketones,Urine Negative (Negative); Leukocyte Esterase,Urine Negative (Negative); Nitrite,Urine Negative (Negative); Protein,Urine >=300 mg/dL (Neg-Trace); Specific Gravity,Urine 1.016 (1.010-1.025); Urobilinogen,Urine Normal (Normal)
[2019-07-18 22:16] LABS: Bacteria,Urine None Seen per hpf (None-Few); Hyaline Casts,Urine None Seen per lpf (None-Few); RBC,Urine 0-3 per hpf (0-3); Squamous Epithelial Cell,Urine Many per lpf (None-Few)
[2019-07-18 22:52] LABS: Hepatitis B Surface Antibody 6.21 mIU/mL
[2019-07-18 23:04] LABS: Hepatitis B Surface Antigen Nonreactive (Nonreactive)
[2019-07-19 01:22] LABS: Calcium 7.5 mg/dL (8.6-10.3); Phosphorous 4.5 mg/dL (2.7-4.5); Potassium 3.8 mEq/L (3.5-5.1)
[2019-07-19] MEDS: Nitroglycerin 25 MG/250 ML INFUS..BTL IVC SCH ×2 (02:17→13:30)
[2019-07-19 04:50] LABS: Mean Corpuscular HGB Conc 31.8 g/dL (31.6-35.5); Mean Corpuscular Hemoglobin 28.9 pg (28.0-33.3); Mean Corpuscular Volume 90.9 fL (83.0-100.0); Mean Platelet Volume 11.3 fL (9.4-12.4); Platelet Count 224 K/mcL (140-400); Red Blood Count 2.42 M/mcL (4.19-5.50); Red Cell Distribution Width 14.6 % (11.5-14.5); White Blood Count 8.5 K/mcL (4.3-11.1)
[2019-07-19 05:05] LABS: Calcium 7.3 mg/dL (8.6-10.3)
[2019-07-19] MEDS ORDERED: Levothyroxine 25 MCG TABLET PO SCH (06:30)
[2019-07-19] MEDS ORDERED: 0.9 % Sodium Chloride 250 ML IVC PRN ×2 (07:42→14:08)
[2019-07-19] MEDS: Insulin LISPRO 300 UNITS/3 ML VIAL SQ SCH ×4 (08:28→21:46)
[2019-07-19] MEDS ORDERED: Lisinopril 20 MG TABLET PO SCH (09:00)
[2019-07-19 10:02] LABS: Hemoglobin 6.7 g/dL (12.9-16.9)
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
[2019-07-19 11:57] LABS: % Iron Saturation 13 % (20-55); Iron 31 mcg/dL (65-175); Transferrin 176 mg/dL (203-362)
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
[2019-07-19 12:22] LABS: Folate 13.8 ng/mL (3.0-16.0)
[2019-07-19] MEDS ORDERED: Dextrose Gel 15 GM/37.5 ML TUBE PO PRN ×2 (14:08)
[2019-07-19] MEDS ORDERED: 0.9 % Sodium Chloride 1,000 ML PRIME SCH (14:08)
[2019-07-19] MEDS ORDERED: *HR* Dextrose 50 % in Water (Syg) 50 ML SYRINGE IVP PRN (14:08)
[2019-07-19] MEDS ORDERED: D5% in Water 1,000 ML IVC PRN (14:08)
[2019-07-19] MEDS ORDERED: Naloxone 0.4 MG/ML INJ IVP PRN (14:08)
--- NOTE | 2019-07-19 15:10 | Electrocardiograph Report ---
[address] [place], [place] [address] Test Date: 2019-07-18 Pat Name: Benjamin Portillo Department: [id number] Room: [facility] Gender: M Supervisor Rose Grading: : 1965 Requested By: Rickey Glasgow Order Number: [id number] Reading MD: Adriano Mejia Measurements Intervals [place] Rate: 121 P: 54 DE: 100 QRS: 36 QRSD: 85 T: 62 QT: 318 QTc: 452 Interpretive Statements Sinus tachycardia WITH SHORT DE INTERVal Electronically Signed On 07-19-2019 15:08:31 EDT by Adriano Mejia
[2019-07-20] MEDS: Levothyroxine 25 MCG TABLET PO SCH (05:30)
[2019-07-20 05:38] LABS: Basophils # 0.1 K/mcL (0.0-0.2); Basophils % 0.8 %; Eosinophils # 0.2 K/mcL (0.0-0.6); Eosinophils % 1.4 %; Hematocrit 27.5 % (37.5-50.1); Immature Granulocytes % 0.5 % (0-4); Lymphocytes % 8.7 %; Mean Corpuscular HGB Conc 32.7 g/dL (31.6-35.5); Mean Corpuscular Hemoglobin 28.7 pg (28.0-33.3); Mean Corpuscular Volume 87.6 fL (83.0-100.0); Mean Platelet Volume 11.2 fL (9.4-12.4); Monocytes # 0.7 K/mcL (0.0-1.3); Neutrophils # 9.5 K/mcL (1.6-8.9); Platelet Count 226 K/mcL (140-400); Red Blood Count 3.14 M/mcL (4.19-5.50); Segmented Neutrophils % 82.6 %; White Blood Count 11.6 K/mcL (4.3-11.1)
[2019-07-20 05:55] LABS: Calcium 7.3 mg/dL (8.6-10.3); Potassium 4.3 mEq/L (3.5-5.1)
[2019-07-20] MEDS: Insulin LISPRO 300 UNITS/3 ML VIAL SQ SCH ×4 (08:47→20:20)
[2019-07-20] MEDS: Lisinopril 20 MG TABLET PO SCH (08:48)
--- NOTE | 2019-07-20 10:48 | Internal Med Progress Note ---
Hospitalist Progress Note - Encounter Date of Encounter: 07/20/19 Time of Encounter: 10:46 - Subjective Interval History: Patient was seen and examined at bed side. He denies any difficulty in breathing. Denies any cough, fever, and chills. Denies any chest pain and palpitations - Exam Vitals: Temp Pulse Resp BP Pulse Ox 99.3 F 81 16 162/81 95 07/20/19 07:51 07/20/19 07:51 07/20/19 07:51 07/20/19 07:51 07/20/19 07:51 Exam: Gen.: Vitals noted. No acute distress HEENT: oropharynx clear, Normocephalic, atraumatic Cardiac: RRR, no murmur, +S1/S2 Pulmonary: CTA bilaterally, no wheezes, rales or rhonchi, equal chest expansion Abdomen: soft, nontender, Bowel sounds noted, no guarding Extremities: No cyanosis, clubbing and edema Neuro: A&Ox3, moves all extremities, no focal deficits Psych: Appropriate mood and behavior - Assessment and Plan (1) Pulmonary edema Current Visit: Yes Status: Acute Assessment and Plan: Patient presents to the hospital with complaint of difficulty in breathing. On initial assessment patient found to have pulmonary edema. Patient has a history of end-stage renal disease and he did not receive dialysis for 2 weeks prior to coming to the hospital. Patient was volume overloaded. Patient responded very well to dialysis. We will continue to monitor. Pro-calcitonin was negative on initial presentation. Patient was not placed on an antibiotic. We will repeat chest x-ray today. Anticipate discharge tomorrow. (2) Diabetes mellitus Current Visit: No Status: Chronic Assessment and Plan: We will continue low-dose sliding scale insulin. (3) Hyperkalemia Current Visit: Yes Status: Resolved (4) Elevated troponin Current Visit: Yes Status: Acute Assessment and Plan: Since troponin was trended during hospitalization. Elevated troponin is most likely due to end-stage renal disease. Troponin trend was adynamic. Echocardiogram was unremarkable except small pericardial effusion which was likely due to end-stage renal disease. Patient denies any chest pain. Will continue to monitor (5) ESRD (end stage renal disease) Current Visit: Yes Status: Acute Assessment and Plan: Patient received dialysis X 2 while his hospitalization. Nephrology is following. (6) Anemia Current Visit: Yes Status: Acute Assessment and Plan: Likely due to chronic kidney disease. Nephrology is following. Pt is on hemopoietic agent (7) Hypertensive urgency Current Visit: Yes Status: Acute Assessment and Plan: Resolved. Continue home antihypertensive medication. (8) DVT prophylaxis Current Visit: Yes Status: Acute Assessment and Plan: EPCD - Time Spent with Patient Total time spent is greater than 50% in coordination of care (as documented) at patient's floor/unit and/or counseling patient: Internal Medicine: Result - Labs CBC & Chem 7: 07/20/19 05:02 07/20/19 05:02 Labs: Short CBC 07/20/19 Range/Units 05:02 WBC 11.6 H (4.3-11.1) K/mcL Hgb 9.0 L D (12.9-16.9) g/dL Hct 27.5 L (37.5-50.1) % Plt Count 226 (140-400) K/mcL Neutrophils # 9.5 H (1.6-8.9) K/mcL BMP 07/20/19 05:02 Sodium 139 Potassium 4.3 Chloride 104 Carbon Dioxide 25 BUN 31 H Creatinine 3.91 H Glucose 140 H Calcium 7.3 L - ABG Interpretation ABG results: ABG ABG pH 7.25 pH Units (7.32-7.45) L 07/18/19 17:42 ABG pCO2 26 mmHg (35-45) L 07/18/19 17:42 ABG pO2 508 mmHg (85-104) H 07/18/19 17:42 ABG O2 Saturation 100 % (95-98) H 07/18/19 17:42 PT/INR, D-dimer PT 11.2 Seconds (9.4-12.1) 07/18/19 17:39 - Impressions Impressions Echocardiogram 07/19/19 12:13 Impressions: LVEF 55-60%. Normal LV chamber size, wall thickness and function. Indeterminate diastolic function. Normal right ventricular structure and function. Aortic valve not well visualized. Number of leaflets could not be determined Mild aortic stenosis. Peak aortic velocity and mean gradient are 2.4m/s and 14 mmHg, respectively. No evidence of pulmonary hypertension. There is a trivial to small pericardial effusion present.There is no echocardiographic evidence of tamponade. Left Ventricular Wall Motion: Rest Echo Findings All wall segments showed normal motion. Findings: Study Quality * Technically adequate exam. ECG Findings * Normal sinus rhythm. Left Ventricle * LVEF 55-60%. * Normal LV chamber size, wall thickness and function. * Indeterminate diastolic function. Right Ventricle * Normal right ventricular structure and function. Left Atrium * Normal left atrial size. Right Atrium * Normal right atrial size. Interatrial Septum * Interatrial septum not well evaluated. Aortic Valve * Aortic valve not well visualized. Number of leaflets could not be determined * Moderately sclerotic aortic valve leaflets. * Mild aortic stenosis. Peak aortic velocity and mean gradient are 2.4m/s and 14 mmHg, respectively. * Peak and mean gradients are 2.4m/s 14 mmHg, respectively. * No aortic regurgitation. Mitral Valve * Mildly thickened mitral valve leaflets. * No mitral regurgitation. * No mitral stenosis. Tricuspid Valve * Normal tricuspid valve structure. * No tricuspid stenosis. * Trace tricuspid regurgitation. * No evidence of pulmonary hypertension. Pulmonic Valve * No pulmonic regurgitation. Aorta * Normally sized aortic root. Pericardium * There is no echocardiographic evidence of tamponade. * There is a trivial pericardial effusion present.There is no echocardiographic evidence of tamponade. IVC * Normal IVC dimensions and inspiratory collapse. Pulmonary Artery * Pulmonary artery not well visualized. Consult Discharge Plan - Plan Referrals: NONE,PCP [Primary Care Provider] - (1) Pulmonary edema Qualifiers: Chronicity: acute Qualified Code(s): J81.0 - Acute pulmonary edema (2) Diabetes mellitus Qualifiers: Diabetes mellitus type: type 2 Diabetes mellitus senior care insulin use: without senior care use Diabetes mellitus complication status: with kidney complications Diabetes mellitus complication detail: with chronic kidney disease Chronic kidney disease stage: unspecified stage Qualified Code(s): E11.22 - Type 2 diabetes mellitus with diabetic chronic kidney disease (6) Anemia Qualifiers: Anemia type: due to chronic kidney disease Qualified Code(s): N18.6 - End stage renal disease; D63.1 - Anemia in chronic kidney disease; Z99.2 - Dependence on renal dialysis
--- NOTE | 2019-07-20 11:12 | Nephrology Progress Note ---
Date of Encounter: 07/20/19 Time of Encounter: 11:09 - Assessment and Plan (1) ESRD (end stage renal disease) on dialysis Current Visit: Yes Status: Acute Does not have an outpatient unit chair time due to insurance. HD completed yesterday, without complication. No need for SNOW REMOVAL/PLOWING today. Renal diet Renal vitamins Strict I/O Avoid nephrotoxins and renal dose all medications. Will order additional UF or HD as needed. Patient is going to call tomorrow and a insurance premium, after tomorrow he will have insurance. Patient will leave most likely AGAINST MEDICAL ADVICE on Wednesday morning so he can go to his job. Cindi cummings medical social consultant will start the process for an outpatient chair time today and will follow-up with him after he is discharged on his outpatient on the chair time. [facility] that [facility] his home. (2) Type 1 diabetes mellitus Current Visit: No Status: Chronic Per primary. Qualifiers: Diabetes mellitus complication status: without complication Qualified Code(s): E10.9 - Type 1 diabetes mellitus without complications (3) Tobacco abuse Current Visit: No Status: Chronic Encouraged cessation, Nicotine patch declined. (4) Chronic anemia Current Visit: No Status: Chronic Hgb is 9, stable not yet at goal. Goal Hgb is 10-11. Iron profile ordered, no recommendations to replace. Subjective Principal diagnosis: difficulty in breathing Interval history: Since seen and examined. Denies chest pain or shortness of breath. Denies nausea, vomiting or diarrhea. Spoke at length with Wednesday the medical social consultant and the patient regarding insurance issues. Objective - Vital Signs Vital signs: Vital Signs Temp Pulse Resp BP Pulse Ox 07/20/19 07:51 99.3 F 81 16 162/81 95 07/20/19 04:06 98 F 89 17 162/82 98 07/19/19 23:49 97.8 F 110 17 162/84 95 07/19/19 19:04 97.9 F 68 17 165/84 96 07/19/19 18:44 98.0 F 16 173/81 07/19/19 18:15 163/85 07/19/19 18:00 165/90 07/19/19 17:45 163/84 07/19/19 17:30 168/85 07/19/19 17:15 170/95 07/19/19 17:00 166/85 07/19/19 16:45 167/83 07/19/19 16:30 163/83 07/19/19 16:15 165/87 07/19/19 16:00 163/88 07/19/19 15:45 156/85 07/19/19 15:41 98.4 F 64 18 155/79 07/19/19 15:30 162/80 07/19/19 15:26 97.5 F L 63 16 162/82 07/19/19 15:15 159/82 07/19/19 15:11 98.3 F 78 16 149/80 07/19/19 15:00 98.3 F 16 154/84 07/19/19 14:00 80 14 154/84 96 07/19/19 13:00 90 14 150/81 99 07/19/19 12:20 90 07/19/19 12:00 90 14 123/86 99 07/19/19 11:41 98.1 F Intake and Output 07/19/19 07/20/19 07/20/19 23:59 07:59 15:59 Output Total 2950 / 6675 Balance -2950 / -4564 Output: Total Dialysis (HD) Output 2950 / 5450 Other: # Voids 2 1 Weight 70.5 kg Blood Glucose* 105 117 Hemodialysis Net Fluid Removed 2000 (mL) Patient Weight 07/20/19 23:59 Weight 70.5 kg - General Appearance General appearance: Present: well-developed, well-nourished EENT: Present: ATNC, hearing intact, vision intact Neck: Present: supple Respiratory: Present: clear Cardiology: Present: no edema, normal S1, normal S2 Dialysis Vascular Access: Venous Catheter (Dressing clean dry and intact.) Gastrointestinal: Present: normoactive bowel sounds, no tenderness, no guarding Integumentary: Present: no rash, warm and dry Neurologic: Present: alert and oriented x3 Musculoskeletal: Present: no deformities, no erythema Psychiatric: Present: mood/affect appropriate, cooperative - Lab 07/20/19 05:02 07/20/19 05:02 Most recent lab results 07/20/19 05:02 Calcium 7.3 L Consult Discharge Plan - Plan Referrals: NONE,PCP [Primary Care Provider] -
[2019-07-21 05:24] LABS: Basophils # 0.1 K/mcL (0.0-0.2); Basophils % 0.8 %; Eosinophils # 0.3 K/mcL (0.0-0.6); Eosinophils % 4.1 %; Hemoglobin 8.5 g/dL (12.9-16.9); Immature Granulocytes % 0.3 % (0-4); Lymphocytes # 1.5 K/mcL (0.6-4.6); Lymphocytes % 20.8 %; Mean Corpuscular HGB Conc 31.5 g/dL (31.6-35.5); Mean Corpuscular Hemoglobin 28.9 pg (28.0-33.3); Mean Corpuscular Volume 91.8 fL (83.0-100.0); Mean Platelet Volume 10.9 fL (9.4-12.4); Monocytes # 0.6 K/mcL (0.0-1.3); Monocytes % 8.5 %; Neutrophils # 4.6 K/mcL (1.6-8.9); Platelet Count 223 K/mcL (140-400); Red Blood Count 2.94 M/mcL (4.19-5.50); Red Cell Distribution Width 14.9 % (11.5-14.5); Segmented Neutrophils % 65.5 %; White Blood Count 7.1 K/mcL (4.3-11.1)
[2019-07-21 05:44] LABS: Calcium 7.3 mg/dL (8.6-10.3); Potassium 4.5 mEq/L (3.5-5.1)
[2019-07-21] MEDS: Levothyroxine 25 MCG TABLET PO SCH (05:53)
[2019-07-21] MEDS ORDERED: 0.9 % Sodium Chloride 250 ML IVC PRN (06:08)
[2019-07-21] MEDS: Insulin LISPRO 300 UNITS/3 ML VIAL SQ SCH ×2 (07:31→11:49)
--- NOTE | 2019-07-21 09:50 | Nephrology Progress Note ---
Date of Encounter: 07/21/19 Time of Encounter: 09:49 - Assessment and Plan (1) Type 1 diabetes mellitus Status: Chronic Qualifiers: Diabetes mellitus complication status: without complication Qualified Code(s): E10.9 - Type 1 diabetes mellitus without complications (2) Tobacco abuse Status: Chronic (3) Chronic anemia Status: Chronic (4) ESRD (end stage renal disease) on dialysis Status: Acute Does not have an outpatient unit chair time due to insurance. HD completed yesterday, without complication. Renal diet Renal vitamins Strict I/O Avoid nephrotoxins and renal dose all medications. Will order additional UF or HD as needed. Patient is going to call tomorrow and a insurance premium, after tomorrow he will have insurance. Patient will leave most likely AGAINST MEDICAL ADVICE on Wednesday morning so he can go to his job. Cindi cummings social services manager will start the process for an outpatient chair time today and will follow-up with him after he is discharged on his outpatient on the chair time. Patient will most likely go to [facility], that is the closest to his home. The patient was seen while on dialysis Subjective Principal diagnosis: difficulty in breathing Interval history: Patient seen on dialysis. Objective - Vital Signs Vital signs: Vital Signs Temp Pulse Resp BP Pulse Ox 07/21/19 06:48 97.3 F L 81 16 174/87 92 07/21/19 04:52 98.1 F 73 12 158/69 91 07/21/19 01:10 98.5 F 81 12 176/90 97 07/20/19 20:37 98.4 F 74 12 137/65 97 07/20/19 17:08 98.7 F 79 16 156/85 100 07/20/19 12:33 98.4 F 64 16 148/75 96 Intake and Output 07/20/19 07/21/19 07/21/19 23:59 07:59 15:59 Intake Total 0 / 0 Balance 0 / 0 Intake: Oral 0 / 0 Other: # Voids 1 Weight 68.5 kg Blood Glucose* 214 119 Patient Weight 07/21/19 23:59 Weight 68.5 kg - General Appearance General appearance: Present: well-developed, well-nourished EENT: Present: ATNC Cardiology: Present: regular rate - Lab 07/21/19 04:47 07/21/19 04:47 Most recent lab results 07/21/19 04:47 Calcium 7.3 L Consult Discharge Plan - Plan Referrals: NONE,PCP [Primary Care Provider] -
[2019-07-21] MEDS ORDERED: *HR* Heparin 10,000 UNIT/10 ML VIAL IV PRN (10:31)
--- NOTE | 2019-07-21 10:38 | Electrocardiograph Report ---
[address] [address] Test Date: 2019-07-19 Pat Name: Benjamin Portillo Department: 109 Room: 2A63 Gender: M Barometers Calibrator: : 1965 Requested By: Savana Gan Order Number: [id number] Reading MD: Janelle Beckwith Measurements Intervals [place] Rate: 98 P: 43 AK: 119 QRS: 38 QRSD: 74 T: 66 QT: 345 QTc: 400 Interpretive Statements SINUS RHYTHM WITH SHORT [place] INTERVAL NONSPECIFIC T-WAVE ABNORMALITY Electronically Signed On 07-21-2019 10:37:14 EDT by Janelle Beckwith
[2019-07-21 11:32] VITALS: BP 161/75
[2019-07-21] MEDS: Lisinopril 20 MG TABLET PO SCH (11:48)
--- NOTE | 2019-07-21 12:41 | Internal Med Progress Note ---
Hospitalist Progress Note - Encounter Date of Encounter: 07/21/19 Time of Encounter: 12:39 - Subjective Interval History: Pt was seen and examined at bedside. Patient denies any difficulty in breathing, chest pain. Patient denied any palpitation. Denies any acute issues and concerns overnight. - Exam Vitals: Temp Pulse Resp BP Pulse Ox 97.6 F 87 13 161/75 97 07/21/19 11:31 07/21/19 11:31 07/21/19 11:31 07/21/19 11:31 07/21/19 11:31 Exam: Gen.: Vitals noted. No acute distress HEENT: oropharynx clear, Normocephalic, atraumatic Cardiac: RRR, no murmur, +S1/S2 Pulmonary: CTA bilaterally, no wheezes, rales or rhonchi, equal chest expansion Abdomen: soft, nontender, Bowel sounds noted, no guarding Extremities: No cyanosis, clubbing and edema Neuro: A&Ox3, moves all extremities, no focal deficits Psych: Appropriate mood and behavior - Assessment and Plan (1) Pulmonary edema Current Visit: Yes Status: Acute Assessment and Plan: Patient presents to the hospital with complaint of difficulty in breathing. On initial assessment patient found to have pulmonary edema. Patient's pro- calcitonin was negative so patient was not started on an antibiotic. Patient's pulmonary edema was likely due to volume overload due to noncompliance with hemodialysis. An improved after receiving dialysis X 3 in the hospital. Patient reports that his insurance will be active today. Patient was explained that we have setting up outpatient hemodialysis before we discharge him. However, patient reports that he has to go to work tomorrow and if we do not discharge him today he will leave the hospital regardless. However, he reports that he will follow-up with outpatient hemodialysis center. I will follow-up with social services technician regarding dialysis (2) Diabetes mellitus Current Visit: No Status: Chronic Assessment and Plan: We will continue low-dose sliding scale insulin. (3) Hyperkalemia Current Visit: Yes Status: Resolved Assessment and Plan: Resolved after dialysis. (4) Elevated troponin Current Visit: Yes Status: Acute Assessment and Plan: Since troponin was trended during hospitalization. Elevated troponin is most likely due to end-stage renal disease. Troponin trend was adynamic. Echocardiogram was unremarkable except small pericardial effusion which was likely due to end-stage renal disease. Patient denies any chest pain. Will continue to monitor. (5) ESRD (end stage renal disease) Current Visit: Yes Status: Acute Assessment and Plan: Patient received dialysis X 3 while his hospitalization. Nephrology is following. (6) Anemia Current Visit: Yes Status: Acute Assessment and Plan: Likely due to chronic kidney disease. Nephrology is following. Pt is on hemopoietic agent (7) Hypertensive urgency Current Visit: Yes Status: Acute (8) DVT prophylaxis Current Visit: Yes Status: Acute Assessment and Plan: EPCD - Time Spent with Patient Total time spent is greater than 50% in coordination of care (as documented) at patient's floor/unit and/or counseling patient: 25 - 35 minutes Plan of Care Discussed with: patient Internal Medicine: Result - Labs CBC & Chem 7: 07/21/19 04:47 07/21/19 04:47 Labs: Short CBC 07/21/19 Range/Units 04:47 WBC 7.1 (4.3-11.1) K/mcL Hgb 8.5 L (12.9-16.9) g/dL Hct 27.0 L (37.5-50.1) % Plt Count 223 (140-400) K/mcL Neutrophils # 4.6 (1.6-8.9) K/mcL BMP 07/21/19 04:47 Sodium 139 Potassium 4.5 Chloride 106 Carbon Dioxide 22 L BUN 51 H Creatinine 5.62 H Glucose 96 Calcium 7.3 L - ABG Interpretation ABG results: ABG ABG pH 7.25 pH Units (7.32-7.45) L 07/18/19 17:42 ABG pCO2 26 mmHg (35-45) L 07/18/19 17:42 ABG pO2 508 mmHg (85-104) H 07/18/19 17:42 ABG O2 Saturation 100 % (95-98) H 07/18/19 17:42 PT/INR, D-dimer PT 11.2 Seconds (9.4-12.1) 07/18/19 17:39 - Impressions Impressions Chest X-Ray 07/20/19 10:43 IMPRESSION: 1. Right CVC with tip at the atrial caval junction. 2. Mild interstitial changes which may represent pulmonary edema. Mild bilateral pleural effusions. 3. No pneumothorax or significant consolidation. D/ / 07/20/2019 11:20:38 Nicola Dumont MD / rosetta Interpreting Provider: Nicola Dumont MD Consult Discharge Plan - Plan Referrals: NONE,PCP [Primary Care Provider] - ____ (1) Pulmonary edema Qualifiers: Chronicity: acute Qualified Code(s): J81.0 - Acute pulmonary edema (2) Diabetes mellitus Qualifiers: Diabetes mellitus type: type 2 Diabetes mellitus mcfp insulin use: without grill attendant use Diabetes mellitus complication status: with kidney complications Diabetes mellitus complication detail: with chronic kidney d isease Chronic kidney disease stage: unspecified stage Qualified Code(s): E11.22 - Type 2 diabetes mellitus with diabetic chronic kidney disease (6) Anemia Qualifiers: Anemia type: due to chronic kidney disease Qualified Code(s): N18.6 - End stage renal disease; D63.1 - Anemia in chronic kidney disease; Z99.2 - Dependence on renal dialysis
--- NOTE | 2019-07-21 18:04 | Discharge Summary ---
- NOTES TO OUTPATIENT PROVIDER Notes to Outpatient Provider: Pt was hospitalized due to shortness of breath. Patient undergo pulmonary edema which was as a result of being noncompliant with hemodialysis. Patient reports that prior to the emergency room he was not able to get hemodialysis due to insurance issue for 2 weeks. Patient received hemodialysis 3 during the hospitalization course and improved. However, patient decided to left AMA without getting set up with his outpatient dialysis appointments. I explained the risk of leaving AMA including, patient still decided to AMA. Orders not resulted at time of discharge: Pending orders 07/18/19 17:44 Culture,Blood [BC] Stat Date of Encounter: 07/21/19 Time of Encounter: 18:02 - Discharge Diagnosis (1) Pulmonary edema Priority: Primary Status: Acute Qualifiers: Chronicity: acute Qualified Code(s): J81.0 - Acute pulmonary edema (2) Diabetes mellitus Priority: Secondary Status: Chronic Qualifiers: Diabetes mellitus type: type 2 Diabetes mellitus business integration manager insulin use: without residential use Diabetes mellitus complication status: with kidney complications Diabetes mellitus complication detail: with chronic kidney disease Chronic kidney disease stage: unspecified stage Qualified Code(s): E11.22 - Type 2 diabetes mellitus with diabetic chronic kidney disease (3) Elevated troponin Priority: Secondary Status: Acute (4) ESRD (end stage renal disease) Priority: Secondary Status: Acute (5) Anemia Priority: Secondary Status: Acute Qualifiers: Anemia type: due to chronic kidney disease Qualified Code(s): N18.6 - End stage renal disease; D63.1 - Anemia in chronic kidney disease; Z99.2 - Dependence on renal dialysis (6) Hypertensive urgency Priority: Secondary Status: Acute (7) DVT prophylaxis Priority: Secondary Status: Acute Hospital course: Mr. Portillo is a 54 year old male was hospitalized due to shortness of breath. Patient undergo pulmonary edema which was as a result of being noncompliant with hemodialysis. Patient reports that prior to the emergency room he was not able to get hemodialysis due to insurance issue for 2 weeks. Patient received hemodialysis 3 during the hospitalization course and improved. However, patient decided to left AMA without getting set up with his outpatient dialysis appointments. I explained the risk of leaving AMA including, patient still decided to AMA. Discharge discussed with: patient, family, nurse, social work, case management, research consultant - Time Spent with Patient Total time spent providing and/or coordinating discharge services: 35 Time spent: Greater than 30 minutes - Discharge Medications Prescriptions: Continued Carvedilol 12.5 mg PO BID Levothyroxine [Synthroid] 25 mcg PO DAILY Glimepiride [Amaryl] 4 mg PO DAILY Lisinopril [Zestril] 20 mg PO DAILY Home Medications: Carvedilol 12.5 mg PO BID 06/20/19 [History] Glimepiride [Amaryl] 4 mg PO DAILY 06/20/19 [History] Levothyroxine [Synthroid] 25 mcg PO DAILY 06/20/19 [History] Lisinopril [Zestril] 20 mg PO DAILY 06/22/19 [History] Allergies/Adverse Reactions: Allergy/AdvReac Type Severity Reaction Status Date / Time No Known Allergies Allergy Verified 07/16/19 04:48 Date of admission: 07/18/19 19:47 Primary care physician: PCP NONE Consults: 07/18/19 18:58 Consult to Nephrology [CONS] Stat Consulting Provider: Kidney Arabella/PRABHAKAR/SABLADOR/BRUCE Reason for Consult: renal failure, dialysis noncompliance. hyperkalemia, volume overload Call Completed: Yes 07/18/19 19:39 Consult to Dialysis [CONS] Stat 07/19/19 07:43 Consult to [place] [CONS] Routine Reason for SW Consult: This pt really needs a routine dialysis unit. Please find any solution (he has been using the ER ever few weeks to get dialysis). He must have a dialysis chair time thrice weekly. Thank you for in advance for finding a solution. 07/19/19 07:45 Consult to Dialysis [CONS] ONCE 07/19/19 10:57 Consult to Critical Care [CONS] Routine Consulting Provider: Pulm Crit Care & Sleep Arabella Reason for Consult: To see patient while in ICU Call Completed: Yes 07/19/19 11:03 Consult to Pulmonology [CONS] Routine Consulting Provider: Pulm Crit Care & Sleep Arabella Reason for Consult: Ongoing ICU-level care Call Completed: Yes 07/21/19 06:15 Consult to Dialysis [CONS] ONCE Discharging clinician: Steven Hassan - Constitutional Vitals: Temp Pulse Resp BP Pulse Ox 97.6 F 87 13 161/75 97 07/21/19 11:31 07/21/19 11:31 07/21/19 11:31 07/21/19 11:31 07/21/19 11:31 General appearance: Present: cooperative, A&O X 3 Exam: Patient decided to leave AMA. I personally examined before patient left I did a face to face encounter with patient at 1530. I explained the risk of leaving AMA including . However decided to leave AMA. Gen.: Vitals noted. No acute distress HEENT: oropharynx clear, Normocephalic, atraumatic Cardiac: RRR, no murmur, +S1/S2 Pulmonary: CTA bilaterally, no wheezes, rales or rhonchi, equal chest expansion Abdomen: soft, nontender, Bowel sounds noted, no guarding Extremities: No cyanosis, clubbing and edema Neuro: A&Ox3, moves all extremities, no focal deficits Psych: Appropriate mood and behavior - Patient Status Disposition: Left Against Medical Advice Condition: Critical Functional capacity at discharge: independent ambulation Overall status at discharge: patient is progressing back to baseline - Discharge Instructions Follow Up With: NONE,PCP [Primary Care Provider] -
== END 2019-07-21 17:15 | disposition left against medical advice (07) | DRG 189 ==
LOC: EMEROOARM 17:38 → SUATTDRO 19:47 → ICNU 19:47 → 2ANU 07-19 17:08
PROVIDERS: ADMIT Internal Medicine; ATTEND Family Medicine

== ENCOUNTER 2019-07-26 13:08 | Observation (INO) ==
[2019-07-26 15:40] LABS: Basophils # 0.1 K/mcL (0.0-0.2); Basophils % 0.7 %; Eosinophils # 0.3 K/mcL (0.0-0.6); Hematocrit 27.9 % (37.5-50.1); Immature Granulocytes % 0.6 % (0-4); Lymphocytes # 1.4 K/mcL (0.6-4.6); Mean Corpuscular HGB Conc 32.3 g/dL (31.6-35.5); Mean Corpuscular Hemoglobin 29.4 pg (28.0-33.3); Mean Corpuscular Volume 91.2 fL (83.0-100.0); Mean Platelet Volume 10.8 fL (9.4-12.4); Monocytes # 0.7 K/mcL (0.0-1.3); Monocytes % 7.5 %; Nucleated Red Blood Cells 0.3 /100 WBC (0); Platelet Count 273 K/mcL (140-400); Red Blood Count 3.06 M/mcL (4.19-5.50); Red Cell Distribution Width 14.6 % (11.5-14.5); Segmented Neutrophils % 73.2 %; White Blood Count 9.6 K/mcL (4.3-11.1)
--- NOTE | 2019-07-26 15:59 | Emergency Department Note ---
Disposition Clinical Impression: Dialysis patient, noncompliant, Hyperkalemia Disposition: Admitted As Inpatient Condition: Fair Time of Disposition: 17:29 General Adult HPI - General Chief complaint: ED General Medical Stated complaint: Needs Dialysis Time Seen by Provider: 07/26/19 14:09 Source: patient Mode of arrival: ambulatory Limitations: no limitations Nursing Notes Reviewed: Yes Vital Signs Reviewed: Yes - History of Present Illness HPI Narrative: 54-year-old male with significant past medical history of end-stage renal disease currently on dialysis presenting to the emergency department chief complaint of "needing dialysis". Patient states due to insurance issues he has not been able to receive his dialysis as normally scheduled Wednesday, Wednesday and Wednesday. He was seen last week and admitted due to fluid overload and received dialysis at that time but has yet to receive dialysis since. Patient states he is generally weak but that this is his baseline. He denies any other new or changing symptoms at home. Denies any fevers, chest pain, shortness of breath or dizziness. Pain Scale: 0 - Related Data Home Medications Medication Instructions Recorded Confirmed Carvedilol 12.5 mg PO BID 06/20/19 07/18/19 Glimepiride [Amaryl] 4 mg PO DAILY 06/20/19 07/18/19 Levothyroxine [Synthroid] 25 mcg PO DAILY 06/20/19 07/18/19 Lisinopril [Zestril] 20 mg PO DAILY 06/22/19 07/18/19 Allergies Allergy/AdvReac Type Severity Reaction Status Date / Time No Known Allergies Allergy Verified 07/16/19 04:48 All systems ED: reviewed and negative except as stated. Constitutional: Denies: fever Eyes: Reports: as per HPI ENT ED: Reports: as per HPI Cardiovascular: Denies: chest pain Respiratory: Denies: dyspnea Gastrointestinal: Reports: as per HPI Genitourinary: Reports: as per HPI Musculoskeletal: Reports: as per HPI Integumentary: Reports: as per HPI Neurological: Reports: as per HPI Psychiatric: Reports: as per HPI Endocrine: Reports: as per HPI Hematological/Lymphatic: Reports: as per HPI Allergic/Immunologic: Reports: as per HPI Past Medical History - Past Medical History Attestation: Yes The following information was validated with the patient. Medical history: Reports: CHF, diabetes, hypertension, renal disease Surgical history: Reports: no surgical history Psychiatric history: Reports: no psych history - Social History Smoking Status: Current every day smoker Smokeless Tobacco Status: No Alcohol use: Reports: rarely Drug use: Reports: none Physical Exam - General Limitations: no limitations General appearance: alert, in no apparent distress - Head Head exam: atraumatic, normocephalic, normal inspection - Eye Eye exam: Absent: scleral icterus - ENT ENT exam: mucous membranes moist - Neck Neck exam: Present: full ROM - Chest Chest inspection: Present: symmetric chest wall rise - Respiratory Respiratory exam: Present: normal lung sounds bilaterally. Absent: respiratory distress, wheezes - Cardiovascular Cardiovascular exam: Present: regular rate, normal rhythm, normal heart sounds - Abdominal Exam Abdominal exam: Present: soft, Non-Tender. Absent: distention, guarding, rebound - Extremities Exam Extremities exam: Present: full ROM - Neurological Exam Neurological exam: Present: alert, oriented X3 - Psychiatric Psychiatric exam: Present: normal affect - Skin Skin exam: Present: warm, other (Trace pitting edema bilateral lower extremities) Course Course Narrative: 54-year-old male presenting to the emergency department "needing dialysis". Patient is supposed be receiving dialysis Wednesday, Wednesday and Wednesday but does not follow-up due to insurance issues. In the room he is alert and oriented 3 and hemodynamically stable. Physical exam shows some trace edema in the bilateral lower extremities but is otherwise benign. Patient denies any new or concerning symptoms the patient would need emergent dialysis. We will obtain basic laboratory analysis, chest x-ray. We will also consult with our social service director to provide him with information about insurance so he may receive dialysis outside of the emergency department. Disposition pending. Patient agrees with this plan. - Reevaluation(s) Reevaluation #1: Patient's laboratory analysis significant for potassium of 5.4. EKG concerning for peaked T waves. Patient otherwise asymptomatic. We spoke with the bed setter on-call Dr. Alvarez who agrees that patient will most require dialysis as he cannot get it as an outpatient. At this time will plan to admit the patient for further treatment and possible dialysis. Patient remains alert and oriented 3 and hemodynamically stable. Patient agrees this plan. I spoke with the hospitalist transformation manager Dr. Hassan who agrees to accept the patient at this time. Vital Signs Temperature 98.9 F 07/26/19 13:12 Pulse Rate 92 07/26/19 13:12 Respiratory Rate 18 07/26/19 13:12 Blood Pressure 186/86 07/26/19 13:12 O2 Sat by Pulse Oximetry 99 07/26/19 13:12 Temperature 98.9 F 07/26/19 13:12 Pulse Rate 83 07/26/19 15:57 Respiratory Rate 22 07/26/19 15:57 Blood Pressure 188/94 07/26/19 15:57 O2 Sat by Pulse Oximetry 100 07/26/19 15:57 Oxygen Delivery Oxygen Delivery Room Air Medical Decision Making - Lab Data Result diagrams: 07/27/19 03:58 07/27/19 03:58 Lab Results 07/26/19 07/26/19 Range/Units 15:02 15:02 WBC 9.6 (4.3-11.1) K/mcL RBC 3.06 L (4.19-5.50) M/mcL Hgb 9.0 L (12.9-16.9) g/dL Hct 27.9 L (37.5-50.1) % MCV 91.2 (83.0-100.0) fL MCH 29.4 (28.0-33.3) pg MCHC 32.3 (31.6-35.5) g/dL RDW 14.6 H (11.5-14.5) % Plt Count 273 (140-400) K/mcL MPV 10.8 (9.4-12.4) fL Immature Gran % 0.6 (0-4) % Seg Neutrophils % 73.2 % Lymphocytes % 15.0 % Monocytes % 7.5 % Eosinophils % 3.0 % Basophils % 0.7 % Neutrophils # 7.0 (1.6-8.9) K/mcL Lymphocytes # 1.4 (0.6-4.6) K/mcL Monocytes # 0.7 (0.0-1.3) K/mcL Eosinophils # 0.3 (0.0-0.6) K/mcL Basophils # 0.1 (0.0-0.2) K/mcL Nucleated RBCs/100 WBC 0.3 H (0) /100 WBC Sodium 135 L (136-145) mEq/L Potassium 5.4 H (3.5-5.1) mEq/L Chloride 106 (98-107) mEq/L Carbon Dioxide 21 L (23-29) mEq/L BUN 79 H (6-20) mg/dL Creatinine 6.02 H (0.70-1.30) mg/dL Est GFR ( Amer) 12 L (> 60) Est GFR (Non-Af Amer) 10 L (> 60) BUN/Creatinine Ratio 13 (6-26) Glucose 195 H (70-105) mg/dL Calculated Osmolality 309 H (280-300) Calcium 7.4 L (8.6-10.3) mg/dL - EKG Data EKG #1 EKG attestation: Yes I reviewed and interpreted this EKG. EKG results narrative: Sinus rhythm. 83 beats for minute. MD interval 114, QRS 80, QTC 465. Peaked T waves noted throughout. No sign of acute ST segment elevation or ischemia. Compared to previous EKG completed on 07/19/2018 new peaked T waves noted Attestation Statement - Attestation Attestation: I have seen this patient with the resident physician, I have personally evaluated this patient. I had reviewed the chart and document dictation by the resident physician and aM in agreement with the information documented by the resident physician. Please see documentation by the resident physician for complete chart including past medical history, family medical history, review of systems, current history and physical and laboratory and imaging studies. I was present for all procedures, provided direct supervision for all procedures, was present for the entirety of all procedures and provided direct guidance during the procedures. Please see documentation by the resident physician for any procedures performed. I have reviewed all interpretations of EKGs, and reviewed all EKGs performed on patient's as well. I have also reviewed reports of imaging as provided by radiology.
[2019-07-26 16:06] LABS: Calcium 7.4 mg/dL (8.6-10.3); Potassium 5.4 mEq/L (3.5-5.1)
--- NOTE | 2019-07-26 16:26 | Emergency Department Note ---
Disposition Clinical Impression: Dialysis patient, noncompliant, Hyperkalemia Disposition: Home, Self-Care Condition: Fair Referrals: NONE,PCP [Primary Care Provider] - Forms: ED Satisfaction Letter, Work/School Release Time of Disposition: 16:31 General Adult HPI - General Chief complaint: ED General Medical Stated complaint: Needs Dialysis Time Seen by Provider: 07/26/19 14:09 Source: patient Mode of arrival: ambulatory Limitations: no limitations Nursing Notes Reviewed: Yes Vital Signs Reviewed: Yes - History of Present Illness Pain Scale: 0 - Related Data Home Medications Medication Instructions Recorded Confirmed Carvedilol 12.5 mg PO BID 06/20/19 07/18/19 Glimepiride [Amaryl] 4 mg PO DAILY 06/20/19 07/18/19 Levothyroxine [Synthroid] 25 mcg PO DAILY 06/20/19 07/18/19 Lisinopril [Zestril] 20 mg PO DAILY 06/22/19 07/18/19 Allergies Allergy/AdvReac Type Severity Reaction Status Date / Time No Known Allergies Allergy Verified 07/16/19 04:48 All systems ED: reviewed and negative except as stated. Review of Systems: As Per HPI Constitutional: Denies: fever Eyes: Reports: as per HPI ENT ED: Reports: as per HPI Cardiovascular: Denies: chest pain Respiratory: Denies: dyspnea Gastrointestinal: Reports: as per HPI Genitourinary: Reports: as per HPI Musculoskeletal: Reports: as per HPI Integumentary: Reports: as per HPI Neurological: Reports: as per HPI Psychiatric: Reports: as per HPI Endocrine: Reports: as per HPI Hematological/Lymphatic: Reports: as per HPI Allergic/Immunologic: Reports: as per HPI Past Medical History - Past Medical History Medical history: Reports: CHF, diabetes, hypertension, renal disease Surgical history: Reports: no surgical history Psychiatric history: Reports: no psych history - Social History Smoking Status: Current every day smoker Smokeless Tobacco Status: No Alcohol use: Reports: rarely Drug use: Reports: none Physical Exam - General Limitations: no limitations General appearance: alert, in no apparent distress Course Vital Signs Temperature 98.9 F 07/26/19 13:12 Pulse Rate 92 07/26/19 13:12 Respiratory Rate 18 07/26/19 13:12 Blood Pressure 186/86 07/26/19 13:12 O2 Sat by Pulse Oximetry 99 07/26/19 13:12 Temperature 98.9 F 07/26/19 13:12 Pulse Rate 83 07/26/19 15:57 Respiratory Rate 22 07/26/19 15:57 Blood Pressure 188/94 07/26/19 15:57 O2 Sat by Pulse Oximetry 100 07/26/19 15:57 Oxygen Delivery Oxygen Delivery Room Air Medical Decision Making - Lab Data Result diagrams: 07/26/19 15:02 07/26/19 15:02 Lab Results 07/26/19 07/26/19 Range/Units 15:02 15:02 WBC 9.6 (4.3-11.1) K/mcL RBC 3.06 L (4.19-5.50) M/mcL Hgb 9.0 L (12.9-16.9) g/dL Hct 27.9 L (37.5-50.1) % MCV 91.2 (83.0-100.0) fL MCH 29.4 (28.0-33.3) pg MCHC 32.3 (31.6-35.5) g/dL RDW 14.6 H (11.5-14.5) % Plt Count 273 (140-400) K/mcL MPV 10.8 (9.4-12.4) fL Immature Gran % 0.6 (0-4) % Seg Neutrophils % 73.2 % Lymphocytes % 15.0 % Monocytes % 7.5 % Eosinophils % 3.0 % Basophils % 0.7 % Neutrophils # 7.0 (1.6-8.9) K/mcL Lymphocytes # 1.4 (0.6-4.6) K/mcL Monocytes # 0.7 (0.0-1.3) K/mcL Eosinophils # 0.3 (0.0-0.6) K/mcL Basophils # 0.1 (0.0-0.2) K/mcL Nucleated RBCs/100 WBC 0.3 H (0) /100 WBC Sodium 135 L (136-145) mEq/L Potassium 5.4 H (3.5-5.1) mEq/L Chloride 106 (98-107) mEq/L Carbon Dioxide 21 L (23-29) mEq/L BUN 79 H (6-20) mg/dL Creatinine 6.02 H (0.70-1.30) mg/dL Est GFR ( Amer) 12 L (> 60) Est GFR (Non-Af Amer) 10 L (> 60) BUN/Creatinine Ratio 13 (6-26) Glucose 195 H (70-105) mg/dL Calculated Osmolality 309 H (280-300) Calcium 7.4 L (8.6-10.3) mg/dL Attestation Statement - Attestation Attestation: I have seen this patient with the resident physician, I have personally e valuated this patient. I had reviewed the chart and document dictation by the resident physician and aM in agreement with the information documented by the resident physician. Please see documentation by the resident physician for complete chart including past medical history, family medical history, review of systems, current history and physical and laboratory and imaging studies. I was present for all procedures, provided direct supervision for all procedures, was present for the entirety of all procedures and provided direct guidance during the procedures. Please see documentation by the resident physician for any procedures performed. I have reviewed all interpretations of EKGs, and reviewed all EKGs performed on patient's as well. I have also reviewed reports of imaging as provided by radiology. Patient presented to the emergency department with chief complaint of needing dialysis. He is not having insurance yet and cannot afford outpatient dialysis and so he has to come to the hospital to get his dialysis. He denies any headache neck pain chest pain shortness of breath dizziness weakness fevers chills cough sputum production abdominal pain nausea vomiting denies any acute changes. States his last dialysis was about a week ago when he was admitted to the hospital in fluid overload. Vital signs within acceptable limits physical examination is reassuring right upper chest wall Tesio catheter appears healthy. Lungs are clear heart is regular 2/6 systolic murmur rubs or gallops abdomen soft and nontender no significant edema. Chest x-ray showed no acute findings. EKG showed borderline peaked T waves no other acute findings. Basic laboratory studies show chronic anemia of 9, potassium of 5.4. Spoke with Dr. Gil, with nephrology, recommends admission to medicine and she will arrange for inpatient dialysis she is familiar with this patient, and his story, and they cannot get him dialysis yet as an outpatient.
[2019-07-26] MEDS ORDERED: Dextrose Gel 15 GM/37.5 ML TUBE PO PRN ×2 (17:39)
[2019-07-26] MEDS ORDERED: *HR* Dextrose 50 % in Water (Syg) 50 ML SYRINGE IVP PRN (17:39)
[2019-07-26] MEDS ORDERED: D5% in Water 1,000 ML IVC PRN (17:39)
[2019-07-26] MEDS ORDERED: Mag Hydrox/Al Hydrox/Simeth 30 ML UDC PO PRN (17:56)
[2019-07-26] MEDS ORDERED: traMADol 50 MG TABLET PO PRN (17:56)
[2019-07-26] MEDS ORDERED: *HR* Promethazine 25 MG/ML VIAL IVP PRN (17:56)
[2019-07-26] MEDS ORDERED: Naloxone 0.4 MG/ML INJ IVP PRN (17:56)
[2019-07-26] MEDS ORDERED: Ondansetron 4 MG/2 ML VIAL IVP PRN (17:56)
[2019-07-26] MEDS ORDERED: Acetaminophen 325 MG TABLET PO PRN (17:56)
[2019-07-26] MEDS ORDERED: Calcium Gluconate 1gm/50mL 1 GM/50 ML BAG IVPB ONE (17:58)
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
[2019-07-26] MEDS ORDERED: Insulin LISPRO 300 UNITS/3 ML VIAL SQ SCH ×2 (21:00)
[2019-07-27 05:16] LABS: Basophils # 0.1 K/mcL (0.0-0.2); Basophils % 0.7 %; Eosinophils # 0.3 K/mcL (0.0-0.6); Eosinophils % 2.6 %; Hematocrit 25.9 % (37.5-50.1); Hemoglobin 8.1 g/dL (12.9-16.9); Immature Granulocytes % 0.3 % (0-4); Lymphocytes # 1.2 K/mcL (0.6-4.6); Lymphocytes % 12.1 %; Mean Corpuscular HGB Conc 31.3 g/dL (31.6-35.5); Mean Corpuscular Hemoglobin 28.2 pg (28.0-33.3); Mean Corpuscular Volume 90.2 fL (83.0-100.0); Mean Platelet Volume 10.8 fL (9.4-12.4); Monocytes # 0.6 K/mcL (0.0-1.3); Monocytes % 6.2 %; Neutrophils # 7.8 K/mcL (1.6-8.9); Platelet Count 255 K/mcL (140-400); Red Blood Count 2.87 M/mcL (4.19-5.50); Red Cell Distribution Width 14.3 % (11.5-14.5); Segmented Neutrophils % 78.1 %
[2019-07-27 05:27] LABS: Calcium 7.2 mg/dL (8.6-10.3); Magnesium 1.9 mg/dL (1.6-2.6); Phosphorous 5.8 mg/dL (2.7-4.5); Potassium 5.3 mEq/L (3.5-5.1)
[2019-07-27] MEDS ORDERED: *HR* Heparin 5,000 UNIT/ML VIAL SQ SCH (06:00)
[2019-07-27] MEDS ORDERED: 0.9 % Sodium Chloride 250 ML IVC PRN (07:32)
[2019-07-27] MEDS ORDERED: *HR* Heparin 10,000 UNIT/10 ML VIAL IV PRN ×2 (07:32)
[2019-07-27] MEDS ORDERED: 0.9 % Sodium Chloride 1,000 ML PRIME SCH (07:45)
[2019-07-27] MEDS: Insulin LISPRO 300 UNITS/3 ML VIAL SQ SCH ×2 (08:00→12:18)
[2019-07-27] MEDS ORDERED: Nicotine 14 MG PATCH.TD24 TD SCH (09:00)
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
[2019-07-27] MEDS ORDERED: Calcium Acetate 667 MG CAPSULE PO SCH (12:00)
[2019-07-27 13:02] VITALS: BP 162/81
--- NOTE | 2019-07-27 13:52 | Discharge Summary ---
- NOTES TO OUTPATIENT PROVIDER Notes to Outpatient Provider: Patient was admitted for missing dialysis due to insurance issues. He got dialyzed and he wanted to leave AMA. He has followed nephrology as outpatient and work with social media sr strategy manager to get his insurance started. Date of Encounter: 07/27/19 Time of Encounter: 14:10 - Discharge Diagnosis (1) ESRD (end stage renal disease) on dialysis Priority: Primary Status: Acute (2) Hyperkalemia Priority: Secondary Status: Acute (3) Anemia Priority: Secondary Status: Chronic Qualifiers: Anemia type: due to chronic kidney disease Qualified Code(s): N18.6 - End stage renal disease; D63.1 - Anemia in chronic kidney disease; Z99.2 - Dependence on renal dialysis (4) Diabetes mellitus Priority: Secondary Status: Chronic Qualifiers: Diabetes mellitus type: type 2 Diabetes mellitus extermination inspector insulin use: without extermination inspector use Diabetes mellitus complication status: with kidney complications Diabetes mellitus complication detail: with chronic kidney disease Chronic kidney disease stage: unspecified stage Qualified Code(s): E11.22 - Type 2 diabetes mellitus with diabetic chronic kidney disease (5) Hypertension Priority: Secondary Status: Chronic Qualifiers: Hypertension type: essential hypertension Qualified Code(s): I10 - Essential (primary) hypertension (6) Tobacco abuse Priority: Secondary Status: Chronic (7) DVT prophylaxis Priority: Secondary Status: Acute Hospital course: Mr. Portillo is a 54 year old male with history of end-stage disease, type 2 diabetes who came to the hospital after missing dialysis due to insurance issues. Patient had multiple hospitalizations due to missing dialysis as he failed to get his insurance started. He was dialyzed today and decided to leave AGAINST MEDICAL ADVICE stating that he will come next week. Patient understands the risk behind leaving AGAINST MEDICAL ADVICE including worsening respiratory status and possibly . He had full capacity to make his own medical decisions will leave AGAINST MEDICAL ADVICE. Discharge discussed with: patient - Time Spent with Patient Total time spent providing and/or coordinating discharge services: 32 minutes - Discharge Medications Prescriptions: Continued Carvedilol 12.5 mg PO BID Levothyroxine [Synthroid] 25 mcg PO DAILY Glimepiride [Amaryl] 4 mg PO DAILY Lisinopril [Zestril] 20 mg PO DAILY Home Medications: Carvedilol 12.5 mg PO BID 06/20/19 [History] Glimepiride [Amaryl] 4 mg PO DAILY 06/20/19 [History] Levothyroxine [Synthroid] 25 mcg PO DAILY 06/20/19 [History] Lisinopril [Zestril] 20 mg PO DAILY 06/22/19 [History] Allergies/Adverse Reactions: Allergy/AdvReac Type Severity Reaction Status Date / Time No Known Allergies Allergy Verified 07/16/19 04:48 Date of admission: 07/26/19 17:47 Primary care physician: PCP NONE Consults: 07/26/19 16:22 Consult to Nephrology [CONS] Stat Consulting Provider: Kidney Arabella/PRABHAKAR/SALBADOR/BRUCE Reason for Consult: Known patient, ESRD on dialysis Call Completed: Yes 07/27/19 07:30 Consult to Fur Floor Worker [CONS] Routine Reason for SW Consult: set up HD 07/27/19 07:45 Consult to Dialysis [CONS] ONCE - Constitutional Vitals: Temp Pulse Resp BP Pulse Ox 98.1 F 70 15 162/81 99 07/27/19 13:00 07/27/19 07:03 07/27/19 13:00 07/27/19 13:00 07/27/19 08:03 General appearance: Present: A&O X 3 Exam: PHYSICAL EXAMINATION: GENERAL APPEARANCE: The patient is alert, oriented and in no acute distress. HEENT: Head is normocephalic. The sinuses are nontender. Pupils are equal and reactive. The nares are patent. Oropharynx clear without lesions. NECK: Supple without lymphadenopathy. HEART: Regular rate and rhythm. LUNGS: No crackles or wheezes are heard. ABDOMEN: Soft, nontender, nondistended with good bowel sounds heard. Inguinal area is normal. EXTREMITIES: 1+ edema at BLE. NEUROLOGICAL: Gross nonfocal. SKIN: Warm and dry without any rash. - Patient Status Disposition: Left Against Medical Advice Condition: Fair Functional capacity at discharge: independent ambulation Overall status at discharge: patient is back to baseline - Discharge Instructions Instructions: Dialysis Diet (DC), End-Stage Kidney Disease (DC) Follow Up With: NONE,PCP [Primary Care Provider] - (Follow-up with your PCP after your discharge) - Diet and Activity Activity: increase activity as tolerated Diet: other (renal disease )
--- NOTE | 2019-07-27 17:27 | Electrocardiograph Report ---
[place] [id number] Test Date: 2019-07-26 Pat Name: Benjamin Portillo Department: EXAM5 Room: 2A33 Gender: Account Processor: : 1965 Requested By: Tori Rodriguez Order Number: [id number] Reading MD: Ko Be Measurements Intervals Addison Rate: 83 P: 65 AK: 114 QRS: 62 QRSD: 88 T: 78 QT: 395 QTc: 465 Interpretive Statements Sinus rhythm Borderline short AK interval Minimal ST elevation, anterior leads Electronically Signed On 07-27-2019 17:25:45 EDT by Ko Be
[2019-07-28] MEDS ORDERED: Levothyroxine 25 MCG TABLET PO SCH (06:30)
[2019-07-28] MEDS ORDERED: Lisinopril 20 MG TABLET PO SCH (09:00)
== END 2019-07-27 13:52 | disposition left against medical advice (07) ==
LOC: EMEROOARM 13:08 → 2ANU 13:08 → SUATTDRO 17:47 → 2ANU 18:32
PROVIDERS: ADMIT Internal Medicine; ATTEND Internal Medicine

== ENCOUNTER 2019-08-01 15:23 | Observation (INO) ==
[2019-08-01 18:32] LABS: Calcium 6.8 mg/dL (8.6-10.3); Potassium 5.7 mEq/L (3.5-5.1)
--- NOTE | 2019-08-01 18:44 | Emergency Department Note ---
Disposition Clinical Impression: Hyperkalemia, ESRD (end stage renal disease) on dialysis, Dialysis patient, noncompliant Disposition: Admitted As Inpatient Condition: Fair Referrals: NONE,PCP [Primary Care Provider] - Time of Disposition: 18:47 General Adult HPI - General Chief complaint: ED General Medical Stated complaint: "need dialysis" Time Seen by Provider: 08/01/19 16:58 Source: patient Mode of arrival: ambulatory Limitations: no limitations Nursing Notes Reviewed: Yes Vital Signs Reviewed: Yes - History of Present Illness HPI Narrative: Patient is emergency Department with chief complaint of needing dialysis. He states that he is still in process of trying to get dialysis set up as an outpatient but he has not been able to get Medicare yet or his private insurance and the only way he can get dialysis to come the hospital. The story is co nfirmed by the clinical social work aide who has been helping him. He denies any chest pain forms by dizziness weakness palpitations nausea vomiting. He still makes urine denies any decrease urine denies any acute concerns at this time Pain Scale: 0 - Related Data Home Medications Medication Instructions Recorded Confirmed Carvedilol 12.5 mg PO BID 06/20/19 07/18/19 Glimepiride [Amaryl] 4 mg PO DAILY 06/20/19 07/18/19 Levothyroxine [Synthroid] 25 mcg PO DAILY 06/20/19 07/18/19 Lisinopril [Zestril] 20 mg PO DAILY 06/22/19 07/18/19 Allergies Allergy/AdvReac Type Severity Reaction Status Date / Time No Known Allergies Allergy Verified 07/16/19 04:48 All systems ED: reviewed and negative except as stated. Review of Systems: As Per HPI Past Medical History - Past Medical History Medical history: Reports: CHF, diabetes, dialysis, hypertension, renal disease Surgical history: Reports: no surgical history Psychiatric history: Reports: no psych history - Social History Smoking Status: Current every day smoker Smokeless Tobacco Status: No Alcohol use: Reports: rarely Drug use: Reports: none Physical Exam - General Limitations: no limitations General appearance: alert, in no apparent distress - Head Head exam: atraumatic, normocephalic - Eye Eye exam: Present: normal appearance, PERRL - ENT ENT exam: normal exam, normal oropharynx - Neck Neck exam: Present: normal inspection, full ROM - Chest Chest inspection: Present: normal inspection, symmetric chest wall rise, other (Healthy-appearing right upper chest Tesio catheter site without evidence of dislodgment bleeding or infection) - Respiratory Respiratory exam: Present: normal lung sounds bilaterally. Absent: respiratory distress - Cardiovascular Cardiovascular exam: Present: regular rate, normal rhythm, systolic murmur (2/6 systolic murmur no rubs or gallops). Absent: rubs, gallop - Abdominal Exam Abdominal exam: Present: soft, Non-Tender - Extremities Exam Extremities exam: Present: normal inspection, full ROM, normal capillary refill, pedal edema (Trace bilateral lower extremity edema). Absent: tenderness, joint swelling, calf tenderness - Back Exam Back exam: Present: normal inspection, full ROM. Absent: tenderness, CVA tenderness (R), CVA tenderness (L) - Neurological Exam Neurological exam: Present: alert, oriented X3, CN II-XII intact, normal gait, reflexes normal. Absent: motor sensory deficit - Psychiatric Psychiatric exam: Present: normal affect, normal mood - Skin Skin exam: Present: warm, dry, intact, normal color Course Vital Signs Temperature 99.3 F 08/01/19 15:31 Pulse Rate 104 08/01/19 15:31 Respiratory Rate 18 08/01/19 15:31 Blood Pressure 186/93 08/01/19 15:31 O2 Sat by Pulse Oximetry 100 08/01/19 15:31 Temperature 99.3 F 08/01/19 15:31 Pulse Rate 87 08/01/19 17:24 Respiratory Rate 16 08/01/19 17:24 Blood Pressure 186/93 08/01/19 15:31 O2 Sat by Pulse Oximetry 100 08/01/19 17:24 Oxygen Delivery Oxygen Delivery Room Air Medical Decision Making - [facility] Narrative Medical decision making narrative: Chest x-ray showed no evidence of fluid overload no acute findings as interpreted by radiology EKG showed no evidence of acute ischemic dysrhythmia, question borderline peaked T waves no other acute findings. No QT prolongation no QRS widening no DE prolongation. Renal panel showed a slightly decreased bicarbonate of 16, no anion gap, potassium of 5.7, slightly low calcium, mildly elevated blood glucose of 273. Contact nephrology to discuss further management of this patient with likely admission for dialysis as a cannot be set up as an outpatient. - Lab Data Result diagrams: 08/01/19 17:34 Lab Results 08/01/19 Range/Units 17:34 Sodium 140 (136-145) mEq/L Potassium 5.7 H (3.5-5.1) mEq/L Chloride 111 H (98-107) mEq/L Carbon Dioxide 16 L (23-29) mEq/L BUN 84 H (6-20) mg/dL Creatinine 6.75 H (0.70-1.30) mg/dL Est GFR ( Amer) 10 L (> 60) Est GFR (Non-Af Amer) 9 L (> 60) BUN/Creatinine Ratio 12 (6-26) Glucose 273 H (70-105) mg/dL Calculated Osmolality 325 H (280-300) Calcium 6.8 L (8.6-10.3) mg/dL
[2019-08-01] MEDS ORDERED: Albuterol 2.5 MG/3 ML NEBULIZER IH ONE (19:01)
[2019-08-01] MEDS ORDERED: Ondansetron 4 MG/2 ML VIAL IVP PRN (20:36)
[2019-08-01] MEDS ORDERED: Naloxone 0.4 MG/ML INJ IVP PRN (20:36)
[2019-08-02 00:25] LABS: Calcium 6.5 mg/dL (8.6-10.3); Potassium 4.3 mEq/L (3.5-5.1)
[2019-08-02] MEDS ORDERED: Dextrose Gel 15 GM/37.5 ML TUBE PO PRN ×2 (02:06)
[2019-08-02] MEDS ORDERED: *HR* Dextrose 50 % in Water (Syg) 50 ML SYRINGE IVP PRN (02:06)
[2019-08-02] MEDS ORDERED: D5% in Water 1,000 ML IVC PRN (02:06)
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
[2019-08-02] MEDS: *HR* Heparin 5,000 UNIT/ML VIAL SQ SCH ×3 (02:45→22:41)
[2019-08-02] MEDS: Insulin DETEMIR 100 UNIT/ML X5UNITS SQ SCH ×2 (02:46→22:30)
[2019-08-02 05:25] LABS: Hematocrit 26.3 % (37.5-50.1); Hemoglobin 8.2 g/dL (12.9-16.9); Mean Corpuscular HGB Conc 31.2 g/dL (31.6-35.5); Mean Corpuscular Hemoglobin 28.7 pg (28.0-33.3); Mean Platelet Volume 10.7 fL (9.4-12.4); Platelet Count 271 K/mcL (140-400); Red Blood Count 2.86 M/mcL (4.19-5.50); Red Cell Distribution Width 14.5 % (11.5-14.5); White Blood Count 10.6 K/mcL (4.3-11.1)
[2019-08-02 05:34] LABS: Prothrombin Time 11.3 Seconds (9.4-12.1)
[2019-08-02 05:35] LABS: Activated Partial Thrombo Time 29.9 Seconds (26.0-36.0)
[2019-08-02 06:04] LABS: Albumin 2.9 g/dL (3.5-5.7); Bilirubin,Total 0.2 mg/dL (0.3-1.0); Calcium 6.5 mg/dL (8.6-10.3); Globulin 2.9 g/dL (2.4-3.5); Magnesium 1.8 mg/dL (1.6-2.6); Phosphorous 7.2 mg/dL (2.7-4.5); Potassium 4.4 mEq/L (3.5-5.1); Total Protein 5.8 g/dL (6.4-8.9)
[2019-08-02] MEDS: Insulin LISPRO 300 UNITS/3 ML VIAL SQ SCH ×3 (06:14→19:51)
[2019-08-02] MEDS: Levothyroxine 25 MCG TABLET PO SCH (06:16)
[2019-08-02] MEDS ORDERED: 0.9 % Sodium Chloride 250 ML IVC PRN (08:31)
[2019-08-02] MEDS ORDERED: *HR* Heparin 10,000 UNIT/10 ML VIAL IV PRN ×2 (08:31)
[2019-08-02] MEDS ORDERED: 0.9 % Sodium Chloride 1,000 ML ONE (08:43)
[2019-08-02] MEDS ORDERED: 0.9 % Sodium Chloride 1,000 ML PRIME SCH (08:45)
--- NOTE | 2019-08-02 10:38 | Electrocardiograph Report ---
[facility] Test Date: 2019-08-01 Pat Name: Benjamin Portillo Department: [id number] Room: 2A41 Gender: M Merchandise Director: : 1965 Requested By: Hannah Guerrero Order Number: [id number] Reading MD: Reilly Branch Measurements Intervals [place] Rate: 91 P: 63 GA: 104 QRS: 55 QRSD: 88 T: 72 QT: 380 QTc: 468 Interpretive Statements Sinus rhythm Short GA interval, no delta wave Electronically Signed On 08-02-2019 10:36:25 EDT by Reilly Branch
[2019-08-02] MEDS: Calcium Acetate 667 MG CAPSULE PO SCH ×2 (13:14→17:05)
--- NOTE | 2019-08-02 15:56 | Internal Med Progress Note ---
Hospitalist Progress Note - Encounter Date of Encounter: 08/02/19 Time of Encounter: 15:54 - Subjective Interval History: Patient seen and examined. No acute events. Patient has no acute complaints. He is anxious to leave. Outpatient dialysis has not yet been arranged. Patient agrees to stay until tomorrow as he will be getting dialysis. - Exam Vitals: Temp Pulse Resp BP Pulse Ox 97.5 F L 80 18 160/75 97 08/02/19 14:10 08/02/19 07:33 08/02/19 14:10 08/02/19 14:10 08/02/19 07:33 Exam: General: Alert and oriented Skin:Normal color, no rash, no lesions. HEENT:EOM, pupils equal, round and reactive. Cardiovascular:Normal S1 & S2, no rubs, murmurs or gallops. No JVD. Pulse regular. Lungs:Normal breath sounds, no wheezes or crackles. Abdomen:Soft, non-tender, no rigidity. Extremities:No deformity, no edema or tenderness, no joint swelling or clubbing. Neurological:Normal cognition and motor skills. Pulses:Carotid and radial pulses normal +2. Rest of the physical exam is non contributory - Assessment and Plan (1) ESRD (end stage renal disease) on dialysis Current Visit: Yes Status: Acute Assessment and Plan: History of end-stage renal disease recently begun on dialysis though has not been able to follow-up with dialysis sessions due lack of insurance. No evidence of fluid overload at this time. Mildly hyperkalemic with a potassium of 5.7 in the absence of any EKG changes. -Consult to nephrology: s/p dialysis today, plan again for tomorrow -consumer services consultant consult (2) Hyperkalemia Current Visit: Yes Status: Acute Assessment and Plan: Initial potassium of 5.7. No significant EKG changes noted. Patient received albuterol and Kayexalate in the ED. Stable since admission -Continue to monitor (3) Diabetes mellitus Current Visit: No Status: Chronic Assessment and Plan: History of diabetes. Blood glucose 273 on arrival. -Accu-Cheks every 6 hours with sliding scale -Basal insulin at bedtime -Diabetic diet (4) Hypertension Current Visit: No Status: Chronic Assessment and Plan: Blood pressure 186/93 on arrival likely secondary to fluid retention in the setting of end-stage renal disease. -Resume home medications -hydralazine IV push as needed (5) DVT prophylaxis Current Visit: No Status: Acute Assessment and Plan: Subcutaneous heparin - Time Spent with Patient Total time spent is greater than 50% in coordination of care (as documented) at patient's floor/unit and/or counseling patient: 30 minutes Internal Medicine: Result - Labs CBC & Chem 7: 08/02/19 04:46 08/02/19 04:46 Labs: Short CBC 08/02/19 Range/Units 04:46 WBC 10.6 (4.3-11.1) K/mcL Hgb 8.2 L (12.9-16.9) g/dL Hct 26.3 L (37.5-50.1) % Plt Count 271 (140-400) K/mcL BMP 08/01/19 08/01/19 08/02/19 17:34 23:50 04:46 Sodium 140 139 142 Potassium 5.7 H 4.3 4.4 Chloride 111 H 111 H 111 H Carbon Dioxide 16 L 15 L 20 L BUN 84 H 81 H 81 H Creatinine 6.75 H 6.62 H 6.38 H Glucose 273 H 241 H 116 H Calcium 6.8 L 6.5 L 6.5 L Liver Function 08/02/19 Range/Units 04:46 Total Bilirubin 0.2 L (0.3-1.0) mg/dL AST 16 (13-39) Units/L ALT 13 (7-52) Units/L Alkaline Phosphatase 102 (34-104) Units/L Albumin 2.9 L (3.5-5.7) g/dL - ABG Interpretation ABG results: PT/INR, D-dimer PT 11.3 Seconds (9.4-12.1) 08/02/19 04:46 - Impressions Impressions Chest X-Ray 08/01/19 17:56 IMPRESSION: No acute process. D/ / Isak Hare MD / Isak Hare MD Interpreting Provider: Isak Hare MD Consult Discharge Plan - Plan Referrals: NONE,PCP [Primary Care Provider] - (3) Diabetes mellitus Qualifiers: Diabetes mellitus type: type 2 Diabetes mellitus prison insulin use: without long goods drier use Diabetes mellitus complication status: with kidney complications Diabetes mellitus complication detail: with chronic kidney disease Chronic kidney disease stage: unspecified stage Qualified Code(s): E11.22 - Type 2 diabetes mellitus with diabetic chronic kidney disease (4) Hypertension Qualifiers: Hypertension type: essential hypertension Qualified Code(s): I10 - Essential (primary) hypertension
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
[2019-08-02] MEDS ORDERED: Insulin LISPRO 300 UNITS/3 ML VIAL SQ SCH (21:00)
[2019-08-03] MEDS: *HR* Heparin 5,000 UNIT/ML VIAL SQ SCH (07:10)
[2019-08-03] MEDS ORDERED: Insulin LISPRO 300 UNITS/3 ML VIAL SQ SCH ×4 (07:30→21:00)
[2019-08-03] MEDS: Levothyroxine 25 MCG TABLET PO SCH (07:57)
[2019-08-03] MEDS: Calcium Acetate 667 MG CAPSULE PO SCH (07:57)
[2019-08-03 08:00] LABS: Hematocrit 29.7 % (37.5-50.1); Hemoglobin 9.4 g/dL (12.9-16.9); Mean Corpuscular HGB Conc 31.6 g/dL (31.6-35.5); Mean Corpuscular Hemoglobin 28.7 pg (28.0-33.3); Mean Corpuscular Volume 90.8 fL (83.0-100.0); Mean Platelet Volume 10.7 fL (9.4-12.4); Platelet Count 293 K/mcL (140-400); Red Blood Count 3.27 M/mcL (4.19-5.50); Red Cell Distribution Width 14.3 % (11.5-14.5); White Blood Count 10.1 K/mcL (4.3-11.1)
[2019-08-03] MEDS ORDERED: 0.9 % Sodium Chloride 250 ML IVC PRN (08:18)
[2019-08-03] MEDS ORDERED: *HR* Heparin 10,000 UNIT/10 ML VIAL IV PRN ×2 (08:18)
[2019-08-03 08:19] LABS: Calcium 7.3 mg/dL (8.6-10.3); Potassium 4.2 mEq/L (3.5-5.1)
[2019-08-03 12:40] VITALS: BP 136/91
--- NOTE | 2019-08-03 13:59 | Discharge Summary ---
Date of Encounter: 08/03/19 Time of Encounter: 13:56 - Discharge Diagnosis (1) ESRD (end stage renal disease) on dialysis Priority: Primary Status: Acute (2) Hyperkalemia Priority: Secondary Status: Acute (3) Diabetes mellitus Priority: Secondary Status: Chronic Qualifiers: Diabetes mellitus type: type 2 Diabetes mellitus prison insulin use: without prison use Diabetes mellitus complication status: with kidney complications Diabetes mellitus complication detail: with chronic kidney disease Chronic kidney disease stage: unspecified stage Qualified Code(s): E11.22 - Type 2 diabetes mellitus with diabetic chronic kidney disease (4) Hypertension Priority: Secondary Status: Chronic Qualifiers: Hypertension type: essential hypertension Qualified Code(s): I10 - Essential (primary) hypertension (5) DVT prophylaxis Priority: Secondary Status: Acute Hospital course: Mr. Portillo is a 54 year old male with history of ESRD admitted for dialysis as he has missed multiple dialysis appointments. Patient has had issues with his insurance and arranging an outpatient dialysis chair. He has had multiple admissions this month as he has left [facility] multiple times and comes back when he needs his dialysis. Nephrology was consulted and patient received dialysis twice. Patient explained that it is unsafe for him to leave hospital without securing outpatient dialysis chair. Patient aware and decided to leave AMA. Of note, patient was hyperglycemic and hyperkalemic on admission. Potassium improved but FSBS was still high on day of discharge. Patient was explained this and still decided to leave AMA. Discharge discussed with: patient - Time Spent with Patient Total time spent providing and/or coordinating discharge services: 35 minutes - Discharge Medications Prescriptions: No Action Carvedilol 12.5 mg PO BID Levothyroxine [Synthroid] 25 mcg PO DAILY Glimepiride [Amaryl] 4 mg PO DAILY Lisinopril [Zestril] 20 mg PO DAILY Home Medications: Carvedilol 12.5 mg PO BID 06/20/19 [History] Glimepiride [Amaryl] 4 mg PO DAILY 06/20/19 [History] Levothyroxine [Synthroid] 25 mcg PO DAILY 06/20/19 [History] Lisinopril [Zestril] 20 mg PO DAILY 06/22/19 [History] Allergies/Adverse Reactions: Allergy/AdvReac Type Severity Reaction Status Date / Time No Known Allergies Allergy Verified 08/03/19 07:47 Date of admission: 08/01/19 20:41 Primary care physician: PCP NONE Consults: 08/01/19 20:39 Consult to Nephrology [CONS] Routine Consulting Provider: Claudia Bell/PRABHAKAR/SALBADOR/BRUCE Reason for Consult: Missed HD Call Completed: Yes 08/02/19 02:12 Consult to Thread Pulling Machine Attendant [CONS] Routine Reason for SW Consult: Patient still requiring assistance with an dialysis until insurance issues can be resolved 08/02/19 08:45 Consult to Dialysis [CONS] ONCE 08/03/19 08:30 Consult to Dialysis [CONS] ONCE Discharging clinician: Moraima Santos Anticipated date of discharge: 08/03/19 - Constitutional Vitals: Temp Pulse Resp BP Pulse Ox 98 F 70 15 136/91 96 08/03/19 12:40 08/03/19 07:35 08/03/19 12:40 08/03/19 12:40 08/03/19 07:35 General appearance: Present: A&O X 3, no acute distress, answers questions appropriately Exam: General: Alert and oriented Skin:Normal color, no rash, no lesions. HEENT:EOM, pupils equal, round and reactive. Cardiovascular:Normal S1 & S2, no rubs, murmurs or gallops. No JVD. Pulse regular. Lungs:Normal breath sounds, no wheezes or crackles. Abdomen:Soft, non-tender, no rigidity. Extremities:No deformity, no edema or tenderness, no joint swelling or clubbing. Neurological:Normal cognition and motor skills. Pulses:Carotid and radial pulses normal +2. Rest of the physical exam is non contributory - Patient Status Disposition: Left Against Medical Advice Condition: Fair Functional capacity at discharge: independent ambulation Overall status at discharge: patient is back to baseline - Discharge Instructions Follow Up With: NONE,PCP [Primary Care Provider] - - Diet and Activity Activity: resume usual activities as tolerated Diet: advance to your usual diet
== END 2019-08-03 13:00 | disposition left against medical advice (07) ==
LOC: EMEROOARM 15:23 → 2ANU 15:23 → SUATTDRO 20:41 → 2ANU 21:10
PROVIDERS: ADMIT Internal Medicine; ATTEND Family Medicine

== ENCOUNTER 2019-08-09 14:09 | Observation (INO) ==
[2019-08-09 15:03] LABS: Basophils # 0.1 K/mcL (0.0-0.2); Basophils % 1.1 %; Eosinophils # 0.1 K/mcL (0.0-0.6); Eosinophils % 1.5 %; Hematocrit 28.1 % (37.5-50.1); Hemoglobin 9.1 g/dL (12.9-16.9); Immature Granulocytes % 0.3 % (0-4); Mean Corpuscular HGB Conc 32.4 g/dL (31.6-35.5); Mean Corpuscular Hemoglobin 28.6 pg (28.0-33.3); Mean Corpuscular Volume 88.4 fL (83.0-100.0); Mean Platelet Volume 11.1 fL (9.4-12.4); Monocytes # 0.7 K/mcL (0.0-1.3); Monocytes % 7.2 %; Neutrophils # 7.2 K/mcL (1.6-8.9); Platelet Count 291 K/mcL (140-400); Red Blood Count 3.18 M/mcL (4.19-5.50); Red Cell Distribution Width 13.9 % (11.5-14.5); Segmented Neutrophils % 78.9 %; White Blood Count 9.2 K/mcL (4.3-11.1)
[2019-08-09 15:17] LABS: Calcium 6.1 mg/dL (8.6-10.3); Potassium 5.5 mEq/L (3.5-5.1)
[2019-08-09] MEDS ORDERED: 0.9 % Sodium Chloride 250 ML IVC PRN (15:51)
[2019-08-09] MEDS ORDERED: 0.9 % Sodium Chloride 1,000 ML PRIME SCH (16:00)
[2019-08-09] MEDS ORDERED: Naloxone 0.4 MG/ML INJ IVP PRN (16:39)
[2019-08-09] MEDS ORDERED: Dextrose Gel 15 GM/37.5 ML TUBE PO PRN ×2 (17:52)
[2019-08-09] MEDS ORDERED: *HR* Dextrose 50 % in Water (Syg) 50 ML SYRINGE IVP PRN (17:52)
[2019-08-09] MEDS ORDERED: D5% in Water 1,000 ML IVC PRN (17:52)
[2019-08-09] MEDS: Levothyroxine 25 MCG TABLET PO SCH (18:06)
[2019-08-09] MEDS ORDERED: Insulin LISPRO 300 UNITS/3 ML VIAL SQ SCH (21:00)
[2019-08-09] MEDS ORDERED: hydrALAZINE 10 MG TABLET PO PRN (21:08)
[2019-08-09] MEDS ORDERED: Ondansetron 4 MG/2 ML VIAL IVP ONE (22:39)
[2019-08-10 04:59] LABS: Basophils # 0.1 K/mcL (0.0-0.2); Eosinophils # 0.1 K/mcL (0.0-0.6); Eosinophils % 0.8 %; Hematocrit 26.9 % (37.5-50.1); Immature Granulocytes % 0.1 % (0-4); Lymphocytes % 12.2 %; Mean Corpuscular HGB Conc 33.5 g/dL (31.6-35.5); Mean Corpuscular Hemoglobin 28.9 pg (28.0-33.3); Mean Corpuscular Volume 86.5 fL (83.0-100.0); Mean Platelet Volume 11.1 fL (9.4-12.4); Monocytes # 0.5 K/mcL (0.0-1.3); Monocytes % 6.1 %; Neutrophils # 6.7 K/mcL (1.6-8.9); Platelet Count 262 K/mcL (140-400); Red Blood Count 3.11 M/mcL (4.19-5.50); Red Cell Distribution Width 13.7 % (11.5-14.5); Segmented Neutrophils % 79.8 %; White Blood Count 8.4 K/mcL (4.3-11.1)
[2019-08-10] MEDS: Levothyroxine 25 MCG TABLET PO SCH (05:18)
[2019-08-10 05:20] LABS: Calcium 7.3 mg/dL (8.6-10.3); Potassium 3.6 mEq/L (3.5-5.1)
[2019-08-10] MEDS ORDERED: 0.9 % Sodium Chloride 250 ML IVC PRN (07:07)
[2019-08-10] MEDS: Insulin LISPRO 300 UNITS/3 ML VIAL SQ SCH ×2 (07:40→13:11)
[2019-08-10] MEDS ORDERED: Lisinopril 20 MG TABLET PO SCH ×2 (09:00)
[2019-08-10 10:08] LABS: Estimated Average Glucose 194 mg/dl
[2019-08-10] MEDS ORDERED: Calcium Acetate 667 MG CAPSULE PO SCH (12:00)
[2019-08-10 13:01] VITALS: BP 152/82
== END 2019-08-10 14:27 | disposition home or self-care (01) ==
LOC: 2ANU 14:09 → EMEROOARM 14:09 → SUATTDRO 15:59 → 2ANU 16:22
PROVIDERS: ADMIT Internal Medicine; ATTEND Internal Medicine

== ENCOUNTER 2019-08-16 14:37 | Observation (INO) ==
[2019-08-16 15:25] LABS: Basophils # 0.1 K/mcL (0.0-0.2); Basophils % 0.6 %; Eosinophils # 0.2 K/mcL (0.0-0.6); Eosinophils % 1.3 %; Hematocrit 26.1 % (37.5-50.1); Hemoglobin 8.2 g/dL (12.9-16.9); Immature Granulocytes % 0.3 % (0-4); Lymphocytes # 1.4 K/mcL (0.6-4.6); Lymphocytes % 12.1 %; Mean Corpuscular HGB Conc 31.4 g/dL (31.6-35.5); Mean Corpuscular Hemoglobin 28.7 pg (28.0-33.3); Mean Corpuscular Volume 91.3 fL (83.0-100.0); Monocytes # 0.6 K/mcL (0.0-1.3); Monocytes % 5.2 %; Platelet Count 265 K/mcL (140-400); Red Blood Count 2.86 M/mcL (4.19-5.50); Red Cell Distribution Width 13.9 % (11.5-14.5); Segmented Neutrophils % 80.5 %; White Blood Count 11.1 K/mcL (4.3-11.1)
[2019-08-16 15:46] LABS: Calcium 6.7 mg/dL (8.6-10.3); Potassium 5.2 mEq/L (3.5-5.1)
[2019-08-16] MEDS ORDERED: Acetaminophen 325 MG TABLET PO PRN (17:28)
[2019-08-16] MEDS ORDERED: Naloxone 0.4 MG/ML INJ IVP PRN (17:28)
[2019-08-17 02:27] LABS: Hepatitis B Surface Antibody < 3.10 mIU/mL
[2019-08-17 02:38] LABS: Hepatitis B Surface Antigen Nonreactive (Nonreactive)
[2019-08-17 04:59] LABS: Hematocrit 25.3 % (37.5-50.1); Hemoglobin 7.9 g/dL (12.9-16.9); Mean Corpuscular HGB Conc 31.2 g/dL (31.6-35.5); Mean Corpuscular Volume 89.7 fL (83.0-100.0); Mean Platelet Volume 11.2 fL (9.4-12.4); Platelet Count 282 K/mcL (140-400); Red Blood Count 2.82 M/mcL (4.19-5.50); Red Cell Distribution Width 13.7 % (11.5-14.5); White Blood Count 9.5 K/mcL (4.3-11.1)
[2019-08-17 05:09] LABS: Calcium 6.8 mg/dL (8.6-10.3); Phosphorous 6.7 mg/dL (2.7-4.5); Potassium 4.6 mEq/L (3.5-5.1)
[2019-08-17] MEDS ORDERED: D5% in Water 1,000 ML IVC PRN (07:39)
[2019-08-17] MEDS ORDERED: Dextrose Gel 15 GM/37.5 ML TUBE PO PRN ×2 (07:39)
[2019-08-17] MEDS ORDERED: *HR* Dextrose 50 % in Water (Syg) 50 ML SYRINGE IVP PRN (07:39)
[2019-08-17] MEDS ORDERED: 0.9 % Sodium Chloride 250 ML IVC PRN (07:53)
[2019-08-17] MEDS ORDERED: *HR* Heparin 10,000 UNIT/10 ML VIAL IV PRN ×2 (07:53)
[2019-08-17] MEDS ORDERED: 0.9 % Sodium Chloride 1,000 ML PRIME SCH (08:00)
[2019-08-17] MEDS ORDERED: 0.9 % Sodium Chloride 1,000 ML ONE (08:05)
[2019-08-17] MEDS: NIFEdipine XL (24 HR) 30 MG TAB.ER.24 PO SCH ×2 (10:38→10:42)
[2019-08-17] MEDS: Insulin LISPRO 300 UNITS/3 ML VIAL SQ SCH ×2 (10:43→12:25)
[2019-08-17 13:20] VITALS: BP 110/66
[2019-08-17] MEDS ORDERED: Insulin DETEMIR 100 UNIT/ML X5UNITS SQ SCH (21:00)
== END 2019-08-17 14:29 | disposition home or self-care (01) ==
LOC: EMEROOARM 14:37 → 2ANU 14:37 → SUATTDRO 17:06 → 2ANU 17:34
PROVIDERS: ADMIT Internal Medicine; ATTEND Pharmacist

== ENCOUNTER 2019-08-24 15:03 | Observation (INO) ==
[2019-08-24 17:39] LABS: Hematocrit 26.1 % (37.5-50.1); Hemoglobin 8.6 g/dL (12.9-16.9); Mean Corpuscular Hemoglobin 29.5 pg (28.0-33.3); Mean Corpuscular Volume 89.4 fL (83.0-100.0); Mean Platelet Volume 10.7 fL (9.4-12.4); Platelet Count 271 K/mcL (140-400); Red Blood Count 2.92 M/mcL (4.19-5.50); Red Cell Distribution Width 14.1 % (11.5-14.5)
[2019-08-24 18:42] LABS: Calcium 6.8 mg/dL (8.6-10.3); Potassium 4.4 mEq/L (3.5-5.1)
[2019-08-24] MEDS ORDERED: hydrALAZINE 10 MG TABLET PO ONE (19:34)
[2019-08-24] MEDS ORDERED: *HR* Dextrose 50 % in Water (Syg) 50 ML SYRINGE IVP PRN (20:37)
[2019-08-24] MEDS ORDERED: D5% in Water 1,000 ML IVC PRN (20:37)
[2019-08-24] MEDS ORDERED: Dextrose Gel 15 GM/37.5 ML TUBE PO PRN ×2 (20:37)
[2019-08-24] MEDS ORDERED: Insulin LISPRO 300 UNITS/3 ML VIAL SQ SCH (21:00)
[2019-08-24] MEDS ORDERED: Naloxone 0.4 MG/ML INJ IVP PRN (22:55)
[2019-08-25 05:40] LABS: Basophils # 0.1 K/mcL (0.0-0.2); Basophils % 0.7 %; Eosinophils # 0.2 K/mcL (0.0-0.6); Eosinophils % 2.4 %; Hemoglobin 7.3 g/dL (12.9-16.9); Immature Granulocytes % 0.4 % (0-4); Lymphocytes # 1.3 K/mcL (0.6-4.6); Lymphocytes % 17.5 %; Mean Corpuscular HGB Conc 31.7 g/dL (31.6-35.5); Mean Corpuscular Hemoglobin 28.7 pg (28.0-33.3); Mean Corpuscular Volume 90.6 fL (83.0-100.0); Mean Platelet Volume 11.1 fL (9.4-12.4); Monocytes # 0.5 K/mcL (0.0-1.3); Monocytes % 7.4 %; Neutrophils # 5.1 K/mcL (1.6-8.9); Platelet Count 265 K/mcL (140-400); Red Blood Count 2.54 M/mcL (4.19-5.50); Red Cell Distribution Width 14.3 % (11.5-14.5); Segmented Neutrophils % 71.6 %; White Blood Count 7.2 K/mcL (4.3-11.1)
[2019-08-25 05:57] LABS: Calcium 6.6 mg/dL (8.6-10.3); Potassium 4.6 mEq/L (3.5-5.1)
[2019-08-25] MEDS ORDERED: 0.9 % Sodium Chloride 250 ML IVC PRN (08:33)
[2019-08-25] MEDS ORDERED: 0.9 % Sodium Chloride 1,000 ML ONE (08:34)
[2019-08-25] MEDS ORDERED: 0.9 % Sodium Chloride 1,000 ML PRIME SCH (08:45)
[2019-08-25] MEDS: Insulin LISPRO 300 UNITS/3 ML VIAL SQ SCH ×2 (09:22→12:24)
[2019-08-25 20:13] VITALS: BP 200/96
== END 2019-08-25 15:24 | disposition home or self-care (01) ==
LOC: 2ANU 15:03 → EMEROOARM 15:03 → SUATTDRO 19:56 → 2ANU 20:03
PROVIDERS: ADMIT Family Medicine; ATTEND Internal Medicine

== ENCOUNTER 2019-09-19 07:49 | Inpatient (IN) ==
[2019-09-19] MEDS ORDERED: Nitroglycerin 25 MG/250 ML INFUS..BTL IVC ONE (08:03)
[2019-09-19] MEDS ORDERED: Nitroglycerin 0.4 MG TAB.SUBL SL ONE (08:10)
[2019-09-19] MEDS: Nitroglycerin 25 MG/250 ML INFUS..BTL IVC SCH ×2 (08:12→14:59)
[2019-09-19 08:25] LABS: Basophils # 0.1 K/mcL (0.0-0.2); Basophils % 0.6 %; Eosinophils # 0.1 K/mcL (0.0-0.6); Eosinophils % 0.9 %; Hematocrit 25.7 % (37.5-50.1); Hemoglobin 8.2 g/dL (12.9-16.9); Immature Granulocytes % 0.7 % (0-4); Lymphocytes # 2.6 K/mcL (0.6-4.6); Lymphocytes % 23.2 %; Mean Corpuscular HGB Conc 31.9 g/dL (31.6-35.5); Mean Corpuscular Hemoglobin 28.8 pg (28.0-33.3); Mean Corpuscular Volume 90.2 fL (83.0-100.0); Monocytes # 0.6 K/mcL (0.0-1.3); Monocytes % 5.8 %; Neutrophils # 7.6 K/mcL (1.6-8.9); Platelet Count 349 K/mcL (140-400); Red Blood Count 2.85 M/mcL (4.19-5.50); Red Cell Distribution Width 15.3 % (11.5-14.5); Segmented Neutrophils % 68.8 %
[2019-09-19 08:28] LABS: INR 1.1; Prothrombin Time 12.9 Seconds (9.4-12.1)
[2019-09-19 08:54] LABS: Albumin 3.8 g/dL (3.5-5.7); Albumin/Globulin Ratio 1.1 (1.1-2.2); Bilirubin,Indirect 0.3 mg/dL (0.0-1.0); Bilirubin,Total 0.3 mg/dL (0.3-1.0); Calcium 6.5 mg/dL (8.6-10.3); Globulin 3.5 g/dL (2.4-3.5); Potassium 5.2 mEq/L (3.5-5.1); Total Protein 7.3 g/dL (6.4-8.9); Troponin I 0.06 ng/mL (< 0.04)
[2019-09-19] MEDS ORDERED: Aspirin 325 MG TABLET PO ONE (09:07)
[2019-09-19] MEDS ORDERED: Naloxone 0.4 MG/ML INJ IVP PRN (09:26)
[2019-09-19] MEDS ORDERED: Ondansetron 4 MG/2 ML VIAL IVP PRN (09:26)
[2019-09-19] MEDS ORDERED: D5% in Water 1,000 ML IVC PRN (09:28)
[2019-09-19] MEDS ORDERED: Dextrose Gel 15 GM/37.5 ML TUBE PO PRN ×2 (09:28)
[2019-09-19] MEDS ORDERED: *HR* Dextrose 50 % in Water (Syg) 50 ML SYRINGE IVP PRN (09:28)
[2019-09-19] MEDS ORDERED: 0.9 % Sodium Chloride 1,000 ML ONE (09:59)
[2019-09-19] MEDS ORDERED: *HR* Heparin 10,000 UNIT/10 ML VIAL IV PRN (10:01)
[2019-09-19] MEDS ORDERED: 0.9 % Sodium Chloride 250 ML IVC PRN (10:01)
[2019-09-19] MEDS ORDERED: 0.9 % Sodium Chloride 1,000 ML PRIME SCH (10:15)
[2019-09-19] MEDS ORDERED: Furosemide 40 MG/4 ML VIAL IVP ONE (10:15)
[2019-09-19 11:20] LABS: Hepatitis B Surface Antibody < 3.10 mIU/mL
[2019-09-19 11:30] LABS: Hepatitis B Surface Antigen Nonreactive (Nonreactive)
[2019-09-19] MEDS ORDERED: Insulin LISPRO 300 UNITS/3 ML VIAL SQ SCH (12:00)
[2019-09-19 15:48] VITALS: BP 184/105
[2019-09-19 16:16] LABS: Bilirubin,Urine Negative (Negative); Blood,Urine Small (Negative); Clarity,Urine Clear (Clear); Color,Urine Yellow (Yellow); Glucose,Urine (UA) 100 mg/dL (Normal); Ketones,Urine Negative (Negative); Leukocyte Esterase,Urine Negative (Negative); Nitrite,Urine Negative (Negative); PH,Urine 6.5 pH Units (5.0-8.0); Protein,Urine >=300 mg/dL (Neg-Trace); Specific Gravity,Urine 1.012 (1.010-1.025); Urobilinogen,Urine Normal (Normal)
[2019-09-19 16:18] LABS: Bacteria,Urine None Seen per hpf (None-Few); Hyaline Casts,Urine None Seen per lpf (None-Few); Squamous Epithelial Cell,Urine Moderate per lpf (None-Few); WBC,Urine 0-3 per hpf (0-3)
[2019-09-19] MEDS ORDERED: *HR* Heparin 5,000 UNIT/ML VIAL SQ SCH (18:00)
[2019-09-21 05:37] LABS: Acinetobacter baumannii by PCR Not Detected (Not Detect); Candida albicans by PCR Not Detected (Not Detect); Candida glabrata by PCR Not Detected (Not Detect); Candida krusei by PCR Not Detected (Not Detect); Candida parapsilosis by PCR Not Detected (Not Detect); Candida tropicalis by PCR Not Detected (Not Detect); Enterobacter cloacae Cmplx PCR Not Detected (Not Detect); Enterobacteriaceae by PCR Not Detected (Not Detect); Enterococcus by PCR Not Detected (Not Detect); Escherichia coli by PCR Not Detected (Not Detect); Klebsiella oxytoca by PCR Not Detected (Not Detect); Klebsiella pneumoniae by PCR Not Detected (Not Detect); Proteus by PCR Not Detected (Not Detect); Pseudomonas aeruginosa by PCR Not Detected (Not Detect); Serratia marcescens by PCR Not Detected (Not Detect); Staphylococcus aureus by PCR Not Detected (Not Detect); Staphylococcus by PCR DETECTED (Not Detect); Streptococcus agalactiae(B)PCR Not Detected (Not Detect); Streptococcus by PCR Not Detected (Not Detect); Streptococcus pneumoniae PCR Not Detected (Not Detect); Streptococcus pyogenes (A) PCR Not Detected (Not Detect); blaKPC Carbapenem-Resist Gene Not Detected (Not Detect); mecA Methicillin-Resist Gene Not Detected (Not Detect); vanA/B Vancomycin-Resist Genes Not Detected (Not Detect)
== END 2019-09-19 16:37 | disposition left against medical advice (07) | DRG 291 ==
LOC: EMEROOARM 07:49 → ICNU 09:26
PROVIDERS: ADMIT Student in an Organized Health Care Education/Training Program; ATTEND Student in an Organized Health Care Education/Training Program

== ENCOUNTER 2019-10-09 11:52 | Observation (INO) ==
[2019-10-09] MEDS ORDERED: Ondansetron 4 MG/2 ML VIAL IVP PRN (15:06)
[2019-10-09] MEDS ORDERED: Naloxone 0.4 MG/ML INJ IVP PRN (15:06)
[2019-10-09] MEDS ORDERED: *HR* HYDROcodone/Acet 5/325 mg TABLET PO PRN (15:06)
[2019-10-09] MEDS ORDERED: Dextrose Gel 15 GM/37.5 ML TUBE PO PRN ×2 (15:08)
[2019-10-09] MEDS ORDERED: *HR* Dextrose 50 % in Water (Syg) 50 ML SYRINGE IVP PRN (15:08)
[2019-10-09] MEDS ORDERED: D5% in Water 1,000 ML IVC PRN (15:08)
[2019-10-09] MEDS ORDERED: NIFEdipine XL (24 HR) 30 MG TAB.ER.24 PO SCH (15:09)
[2019-10-09] MEDS ORDERED: Ipratropium/Albuterol Neb 3 ML IH PRN (15:52)
[2019-10-09] MEDS ORDERED: Nitroglycerin 25 MG/250 ML INFUS..BTL IVC SCH ×2 (16:00→16:44)
[2019-10-09] MEDS ORDERED: Insulin LISPRO 300 UNITS/3 ML VIAL SQ SCH ×3 (17:00→21:00)
[2019-10-09 17:15] VITALS: BP 130/74
[2019-10-09] MEDS ORDERED: *HR* Heparin 5,000 UNIT/ML VIAL SQ SCH (18:00)
[2019-10-10] MEDS ORDERED: Insulin LISPRO 300 UNITS/3 ML VIAL SQ SCH (17:00)
== END 2019-10-09 17:34 | disposition left against medical advice (07) ==
LOC: CDU
PROVIDERS: ADMIT Internal Medicine; ATTEND Internal Medicine

== ENCOUNTER 2020-01-15 04:43 | Observation (INO) ==
[2020-01-15] MEDS ORDERED: 0.9 % Sodium Chloride 250 ML IVC PRN (07:44)
[2020-01-15] MEDS ORDERED: 0.9 % Sodium Chloride 1,000 ML PRIME SCH (07:45)
[2020-01-15] MEDS ORDERED: NIFEdipine XL (24 HR) 30 MG TAB.ER.24 PO SCH (09:00)
[2020-01-15 09:17] LABS: Hepatitis B Surface Antigen Nonreactive (Nonreactive)
[2020-01-15 09:52] LABS: Hepatitis B Surface Antibody 8.76 mIU/mL
[2020-01-15] MEDS ORDERED: *HR* Heparin 10,000 UNIT/10 ML VIAL IV PRN (15:33)
[2020-01-15 17:57] VITALS: BP 163/98
== END 2020-01-15 18:30 | disposition left against medical advice (07) ==
LOC: 2NNU → SUATTDRO 07:02
PROVIDERS: ADMIT Internal Medicine; ATTEND Internal Medicine

== ENCOUNTER 2020-08-16 21:34 | Inpatient (IN) ==
[2020-08-16] MEDS ORDERED: *HR* HYDROcodone/Acet 10/325 mg TABLET PO ONE (22:25)
[2020-08-17 03:14] LABS: VBG HCO3 23 mEq/L (21-27); VBG PCO2 41 mmHg (41-51); VBG PH 7.35 pH Units (7.32-7.42); VBG PO2 194 mmHg (25-50)
[2020-08-17 03:39] LABS: Albumin 2.5 g/dL (3.5-5.7); Albumin/Globulin Ratio 0.8 (1.1-2.2); Bilirubin,Total 0.2 mg/dL (0.3-1.0); Potassium 4.7 mEq/L (3.5-5.1); Total Protein 5.5 g/dL (6.4-8.9)
[2020-08-17] MEDS ORDERED: Acetaminophen 325 MG TABLET PO PRN (03:52)
[2020-08-17] MEDS ORDERED: Naloxone 0.4 MG/ML INJ IVP PRN (03:52)
[2020-08-17] MEDS ORDERED: *HR* Promethazine 25 MG/ML VIAL IVP PRN (03:52)
[2020-08-17] MEDS ORDERED: D5% in Water 1,000 ML IVC PRN (03:55)
[2020-08-17] MEDS ORDERED: Dextrose Gel 15 GM/37.5 ML TUBE PO PRN ×2 (03:55)
[2020-08-17] MEDS ORDERED: Insulin LISPRO 300 UNITS/3 ML VIAL SQ SCH (04:00)
[2020-08-17 05:11] LABS: Basophils # 0.1 K/mcL (0.0-0.2); Basophils % 0.7 %; Eosinophils # 0.3 K/mcL (0.0-0.6); Eosinophils % 2.7 %; Hematocrit 28.9 % (37.5-50.1); Hemoglobin 9.3 g/dL (12.9-16.9); Immature Granulocytes % 0.5 % (0-4); Lymphocytes # 1.2 K/mcL (0.6-4.6); Lymphocytes % 11.3 %; Mean Corpuscular HGB Conc 32.2 g/dL (31.6-35.5); Mean Corpuscular Hemoglobin 31.1 pg (28.0-33.3); Mean Corpuscular Volume 96.7 fL (83.0-100.0); Mean Platelet Volume 10.5 fL (9.4-12.4); Monocytes # 0.7 K/mcL (0.0-1.3); Monocytes % 6.2 %; Neutrophils # 8.6 K/mcL (1.6-8.9); Platelet Count 362 K/mcL (140-400); Red Blood Count 2.99 M/mcL (4.19-5.50); Red Cell Distribution Width 15.9 % (11.5-14.5); Segmented Neutrophils % 78.6 %
[2020-08-17 05:31] LABS: Magnesium 2.6 mg/dL (1.6-2.6); Phosphorous 9.8 mg/dL (2.7-4.5)
[2020-08-17] MEDS ORDERED: Piperacillin/Tazobactam 3.375 GM in 0.9 % Sodium Chloride Mini Bag 100 ML IVPB SCH (08:00)
[2020-08-17] MEDS ORDERED: Clindamycin 600 MG/50 ML 600 MG/50 ML IV.SOLN IVPB SCH (08:00)
[2020-08-17] MEDS ORDERED: Isovue-370 500 ML BOTTLE IVP ONE (08:18)
[2020-08-17] MEDS: Insulin LISPRO 300 UNITS/3 ML VIAL SQ SCH ×4 (08:47→17:45)
[2020-08-17] MEDS: Lactobacillus 1 EACH CAP.SPRINK PO SCH ×2 (08:51→21:26)
[2020-08-17] MEDS: cloNIDine HCL 0.1 MG TABLET PO SCH ×3 (08:51→21:27)
[2020-08-17] MEDS: calcitrioL 0.25 MCG CAPSULE PO SCH (08:52)
[2020-08-17] MEDS: Gabapentin 300 MG CAPSULE PO SCH ×2 (08:52→21:27)
[2020-08-17] MEDS: Valsartan 80 MG TABLET PO SCH (08:52)
[2020-08-17] MEDS: tiZANidine 4 MG TABLET PO SCH ×3 (08:52→21:26)
[2020-08-17] MEDS ORDERED: (Sucroferric Oxyhydroxide [Velphoro] 500 MG) PO PRN (09:00)
[2020-08-17] MEDS ORDERED: Vancomycin 1 EACH in 0.9 % Sodium Chloride 250 ML IVPB SCH ×2 (09:00→15:00)
[2020-08-17] MEDS: Insulin DETEMIR 100 UNIT/ML X5UNITS SQ SCH (09:09)
[2020-08-17] MEDS: *HR* Dextrose 50 % in Water (Vial) 50 ML VIAL IVP PRN (11:28)
[2020-08-17] MEDS ORDERED: Morphine Sulfate 2 MG/ML SYRINGE IVP PRN (13:03)
[2020-08-17] MEDS ORDERED: *HR* Labetalol 20 MG/4 ML SYRINGE IVP PRN (13:07)
[2020-08-17] MEDS ORDERED: *HR* Heparin 5,000 UNIT/ML VIAL IVP PRN ×2 (13:38)
[2020-08-17] MEDS ORDERED: *HR* Heparin 5,000 UNIT/ML VIAL IVP ONE (13:38)
[2020-08-17] MEDS ORDERED: *HR* Heparin 5,000 UNIT/ML VIAL SQ SCH (14:00)
[2020-08-17 14:30] LABS: Hematocrit 32.6 % (37.5-50.1); Hemoglobin 10.3 g/dL (12.9-16.9); Mean Corpuscular HGB Conc 31.6 g/dL (31.6-35.5); Mean Corpuscular Hemoglobin 30.1 pg (28.0-33.3); Mean Corpuscular Volume 95.3 fL (83.0-100.0); Mean Platelet Volume 10.8 fL (9.4-12.4); Platelet Count 402 K/mcL (140-400); Prothrombin Time 11.7 Seconds (9.4-12.1); Red Blood Count 3.42 M/mcL (4.19-5.50); Red Cell Distribution Width 16.2 % (11.5-14.5)
[2020-08-17 14:32] LABS: Heparin anti-factor XA UFH < 0.04 IU/mL (0.30-0.70)
[2020-08-17 15:26] LABS: Uric Acid 7.1 mg/dL (2.3-7.6)
[2020-08-17] MEDS: Heparin 25,000UNIT/250ML 1/2NS 25,000 UNIT/250 ML IV.SOLN IVC SCH (15:42)
[2020-08-17 16:37] LABS: Hepatitis B Surface Antibody 3.92 mIU/mL
[2020-08-17 16:48] LABS: Hepatitis B Surface Antigen Nonreactive (Nonreactive)
[2020-08-17] MEDS ORDERED: Perit. Dialysis with Dex 1.5 % 12,000 ML PERITONEAL ONE (19:00)
[2020-08-17] MEDS: Piperacillin/Tazobactam 3.375 GM in 0.9 % Sodium Chloride Mini Bag 100 ML IVPB SCH (21:27)
[2020-08-18 07:01] LABS: Basophils # 0.1 K/mcL (0.0-0.2); Basophils % 0.7 %; Eosinophils # 0.2 K/mcL (0.0-0.6); Eosinophils % 1.4 %; Hematocrit 27.2 % (37.5-50.1); Hemoglobin 8.8 g/dL (12.9-16.9); Immature Granulocytes % 0.4 % (0-4); Lymphocytes # 0.9 K/mcL (0.6-4.6); Lymphocytes % 6.3 %; Mean Corpuscular HGB Conc 32.4 g/dL (31.6-35.5); Mean Corpuscular Volume 95.8 fL (83.0-100.0); Mean Platelet Volume 10.1 fL (9.4-12.4); Monocytes # 0.8 K/mcL (0.0-1.3); Monocytes % 5.7 %; Neutrophils # 11.5 K/mcL (1.6-8.9); Platelet Count 321 K/mcL (140-400); Red Blood Count 2.84 M/mcL (4.19-5.50); Red Cell Distribution Width 16.1 % (11.5-14.5); Segmented Neutrophils % 85.5 %; White Blood Count 13.5 K/mcL (4.3-11.1)
[2020-08-18 07:05] LABS: Estimated Average Glucose 223 mg/dl
[2020-08-18 07:19] LABS: Calcium 8.1 mg/dL (8.6-10.3); Magnesium 2.2 mg/dL (1.6-2.6); Phosphorous 7.3 mg/dL (2.7-4.5); Potassium 4.8 mEq/L (3.5-5.1)
[2020-08-18] MEDS ORDERED: *HR* Labetalol 20 MG/4 ML SYRINGE IVP PRN (08:12)
[2020-08-18] MEDS: cloNIDine HCL 0.1 MG TABLET PO SCH ×3 (09:19→21:24)
[2020-08-18] MEDS: calcitrioL 0.25 MCG CAPSULE PO SCH (09:19)
[2020-08-18] MEDS: Gabapentin 300 MG CAPSULE PO SCH ×2 (09:19→21:25)
[2020-08-18] MEDS: tiZANidine 4 MG TABLET PO SCH ×3 (09:19→21:25)
[2020-08-18] MEDS: Valsartan 80 MG TABLET PO SCH (09:19)
[2020-08-18] MEDS: Lactobacillus 1 EACH CAP.SPRINK PO SCH ×2 (09:19→21:25)
[2020-08-18] MEDS: Insulin LISPRO 300 UNITS/3 ML VIAL SQ SCH ×3 (09:20→16:37)
[2020-08-18] MEDS: Piperacillin/Tazobactam 3.375 GM in 0.9 % Sodium Chloride Mini Bag 100 ML IVPB SCH ×2 (09:20→21:25)
[2020-08-18] MEDS: Insulin DETEMIR 100 UNIT/ML X5UNITS SQ SCH ×2 (09:46→12:04)
[2020-08-18] MEDS: Heparin 25,000UNIT/250ML 1/2NS 25,000 UNIT/250 ML IV.SOLN IVC SCH (12:31)
[2020-08-18] MEDS ORDERED: Darbepoetin 100 MCG/0.5 ML SYRINGE SQ SCH (13:00)
[2020-08-18] MEDS: *HR* Dextrose 50 % in Water (Vial) 50 ML VIAL IVP PRN (16:36)
[2020-08-18] MEDS ORDERED: Perit. Dialysis with Dex 2.5 % 6,000 ML PERITONEAL ONE (19:00)
[2020-08-18] MEDS ORDERED: Perit. Dialysis with Dex 1.5 % 6,000 ML PERITONEAL ONE (19:00)
[2020-08-19 05:43] LABS: Basophils # 0.1 K/mcL (0.0-0.2); Basophils % 0.8 %; Eosinophils # 0.2 K/mcL (0.0-0.6); Eosinophils % 1.4 %; Hematocrit 27.6 % (37.5-50.1); Hemoglobin 8.9 g/dL (12.9-16.9); Immature Granulocytes % 0.5 % (0-4); Lymphocytes # 0.8 K/mcL (0.6-4.6); Lymphocytes % 5.8 %; Mean Corpuscular HGB Conc 32.2 g/dL (31.6-35.5); Mean Corpuscular Hemoglobin 30.8 pg (28.0-33.3); Mean Corpuscular Volume 95.5 fL (83.0-100.0); Mean Platelet Volume 10.7 fL (9.4-12.4); Monocytes # 0.8 K/mcL (0.0-1.3); Monocytes % 5.8 %; Neutrophils # 11.8 K/mcL (1.6-8.9); Platelet Count 342 K/mcL (140-400); Red Blood Count 2.89 M/mcL (4.19-5.50); Red Cell Distribution Width 16.1 % (11.5-14.5); Segmented Neutrophils % 85.7 %; White Blood Count 13.8 K/mcL (4.3-11.1)
[2020-08-19 06:02] LABS: Magnesium 2.3 mg/dL (1.6-2.6); Phosphorous 7.3 mg/dL (2.7-4.5); Potassium 4.8 mEq/L (3.5-5.1)
[2020-08-19 06:13] LABS: % Iron Saturation 12 % (20-55); Iron 22 mcg/dL (65-175); Transferrin 129 mg/dL (203-362)
[2020-08-19 06:21] LABS: Ferritin 906 ng/mL (20-250)
[2020-08-19 06:23] LABS: Folate 18.7 ng/mL (3.0-16.0)
[2020-08-19] MEDS: Lactobacillus 1 EACH CAP.SPRINK PO SCH ×2 (08:27→20:21)
[2020-08-19] MEDS: Insulin LISPRO 300 UNITS/3 ML VIAL SQ SCH ×3 (08:27→20:16)
[2020-08-19] MEDS: calcitrioL 0.25 MCG CAPSULE PO SCH (08:27)
[2020-08-19] MEDS: Valsartan 80 MG TABLET PO SCH (08:27)
[2020-08-19] MEDS: Gabapentin 300 MG CAPSULE PO SCH (08:27)
[2020-08-19] MEDS: tiZANidine 4 MG TABLET PO SCH ×3 (08:27→20:21)
[2020-08-19] MEDS: cloNIDine HCL 0.1 MG TABLET PO SCH ×3 (08:27→20:21)
[2020-08-19] MEDS: Piperacillin/Tazobactam 3.375 GM in 0.9 % Sodium Chloride Mini Bag 100 ML IVPB SCH ×2 (08:29→20:22)
[2020-08-19] MEDS: Insulin DETEMIR 100 UNIT/ML X5UNITS SQ SCH (08:33)
[2020-08-19] MEDS: Gabapentin 100 MG CAPSULE PO SCH ×3 (10:18→20:21)
[2020-08-19] MEDS ORDERED: Vancomycin 500 MG in 0.9 % Sodium Chloride Mini Bag 100 ML IVPB ONE (12:00)
[2020-08-19] MEDS: *HR* Dextrose 50 % in Water (Vial) 50 ML VIAL IVP PRN ×2 (14:26→14:27)
[2020-08-19 15:17] LABS: Hematocrit 26.5 % (37.5-50.1); Hemoglobin 8.3 g/dL (12.9-16.9); Immature Granulocytes % 0.7 % (0-4); Lymphocytes % 2.2 %; Mean Corpuscular HGB Conc 31.3 g/dL (31.6-35.5); Mean Corpuscular Hemoglobin 30.2 pg (28.0-33.3); Mean Corpuscular Volume 96.4 fL (83.0-100.0); Mean Platelet Volume 10.5 fL (9.4-12.4); Platelet Count 350 K/mcL (140-400); Red Blood Count 2.75 M/mcL (4.19-5.50); Red Cell Distribution Width 16.7 % (11.5-14.5); Segmented Neutrophils % 90.2 %; White Blood Count 13.5 K/mcL (4.3-11.1)
[2020-08-19 15:18] LABS: Basophils # 0.1 K/mcL (0.0-0.2); Basophils % 0.5 %; Eosinophils # 0.2 K/mcL (0.0-0.6); Eosinophils % 1.8 %; Lymphocytes # 0.3 K/mcL (0.6-4.6); Monocytes # 0.6 K/mcL (0.0-1.3); Monocytes % 4.6 %; Neutrophils # 12.2 K/mcL (1.6-8.9)
[2020-08-19 15:37] LABS: Calcium 8.7 mg/dL (8.6-10.3); Magnesium 2.3 mg/dL (1.6-2.6); Potassium 4.6 mEq/L (3.5-5.1)
[2020-08-19] MEDS ORDERED: D5% in Water 1,000 ML IVC PRN (16:40)
[2020-08-19] MEDS ORDERED: *HR* Dextrose 50 % in Water (Vial) 50 ML VIAL IVP PRN (16:40)
[2020-08-19] MEDS ORDERED: Dextrose Gel 15 GM/37.5 ML TUBE PO PRN ×2 (16:40)
[2020-08-19] MEDS: D5% in 0.9% NACL 1,000 ML IVC SCH (17:40)
[2020-08-19] MEDS ORDERED: Perit. Dialysis with Dex 2.5 % 12,000 ML PERITONEAL ONE (20:20)
[2020-08-19] MEDS ORDERED: Perit. Dialysis with Dex 1.5 % 6,000 ML PERITONEAL ONE (20:20)
[2020-08-19] MEDS: *HR* Heparin 5,000 UNIT/ML VIAL SQ SCH (20:21)
[2020-08-20 02:12] LABS: Hematocrit 25.8 % (37.5-50.1); Hemoglobin 8.2 g/dL (12.9-16.9); Mean Corpuscular HGB Conc 31.8 g/dL (31.6-35.5); Mean Corpuscular Hemoglobin 30.7 pg (28.0-33.3); Mean Corpuscular Volume 96.6 fL (83.0-100.0); Mean Platelet Volume 10.4 fL (9.4-12.4); Platelet Count 343 K/mcL (140-400); Red Blood Count 2.67 M/mcL (4.19-5.50); Red Cell Distribution Width 16.4 % (11.5-14.5); White Blood Count 14.7 K/mcL (4.3-11.1)
[2020-08-20 02:34] LABS: Calcium 8.6 mg/dL (8.6-10.3); Magnesium 2.2 mg/dL (1.6-2.6); Phosphorous 7.4 mg/dL (2.7-4.5); Potassium 5.1 mEq/L (3.5-5.1)
[2020-08-20] MEDS: *HR* Heparin 5,000 UNIT/ML VIAL SQ SCH ×3 (05:29→22:14)
[2020-08-20] MEDS: cloNIDine HCL 0.1 MG TABLET PO SCH ×3 (08:30→22:13)
[2020-08-20] MEDS: tiZANidine 4 MG TABLET PO SCH ×3 (08:30→22:13)
[2020-08-20] MEDS: Valsartan 80 MG TABLET PO SCH (08:30)
[2020-08-20] MEDS: Metoprolol XL (24 HR) Succ 25 MG TAB.ER.24H PO SCH (08:30)
[2020-08-20] MEDS: Gabapentin 100 MG CAPSULE PO SCH ×3 (08:30→22:13)
[2020-08-20] MEDS: calcitrioL 0.25 MCG CAPSULE PO SCH (08:30)
[2020-08-20] MEDS: Insulin LISPRO 300 UNITS/3 ML VIAL SQ SCH ×4 (08:30→22:15)
[2020-08-20] MEDS: Lactobacillus 1 EACH CAP.SPRINK PO SCH ×2 (08:30→22:14)
[2020-08-20] MEDS: NIFEdipine XL (24 HR) 60 MG TAB.ER.24 PO SCH (08:30)
[2020-08-20] MEDS: Piperacillin/Tazobactam 3.375 GM in 0.9 % Sodium Chloride Mini Bag 100 ML IVPB SCH ×2 (08:31→22:14)
[2020-08-20] MEDS: D5% in 0.9% NACL 1,000 ML IVC SCH ×2 (13:11→13:28)
[2020-08-20] MEDS ORDERED: Perit. Dialysis with Dex 1.5 % 6,000 ML PERITONEAL ONE (20:05)
[2020-08-20] MEDS ORDERED: Perit. Dialysis with Dex 2.5 % 6,000 ML PERITONEAL ONE (20:05)
[2020-08-21] MEDS: Insulin LISPRO 300 UNITS/3 ML VIAL SQ SCH ×5 (01:14→21:10)
[2020-08-21 01:57] LABS: Hematocrit 27.3 % (37.5-50.1); Hemoglobin 8.7 g/dL (12.9-16.9); Mean Corpuscular HGB Conc 31.9 g/dL (31.6-35.5); Mean Corpuscular Hemoglobin 30.6 pg (28.0-33.3); Mean Corpuscular Volume 96.1 fL (83.0-100.0); Mean Platelet Volume 10.5 fL (9.4-12.4); Platelet Count 350 K/mcL (140-400); Red Blood Count 2.84 M/mcL (4.19-5.50); White Blood Count 11.9 K/mcL (4.3-11.1)
[2020-08-21 02:18] LABS: Calcium 8.1 mg/dL (8.6-10.3); Phosphorous 6.7 mg/dL (2.7-4.5); Potassium 5.3 mEq/L (3.5-5.1)
[2020-08-21] MEDS: *HR* Heparin 5,000 UNIT/ML VIAL SQ SCH ×3 (06:03→20:48)
[2020-08-21] MEDS: Metoprolol XL (24 HR) Succ 25 MG TAB.ER.24H PO SCH (08:11)
[2020-08-21] MEDS: Lactobacillus 1 EACH CAP.SPRINK PO SCH ×2 (08:11→20:47)
[2020-08-21] MEDS: Piperacillin/Tazobactam 3.375 GM in 0.9 % Sodium Chloride Mini Bag 100 ML IVPB SCH ×2 (08:12→20:48)
[2020-08-21] MEDS: cloNIDine HCL 0.1 MG TABLET PO SCH ×3 (08:12→20:48)
[2020-08-21] MEDS: NIFEdipine XL (24 HR) 60 MG TAB.ER.24 PO SCH (08:12)
[2020-08-21] MEDS: calcitrioL 0.25 MCG CAPSULE PO SCH (08:12)
[2020-08-21] MEDS: tiZANidine 4 MG TABLET PO SCH ×3 (08:12→20:47)
[2020-08-21] MEDS: Valsartan 80 MG TABLET PO SCH (08:12)
[2020-08-21] MEDS: Gabapentin 100 MG CAPSULE PO SCH ×3 (08:12→20:48)
[2020-08-21] MEDS ORDERED: Insulin DETEMIR 100 UNIT/ML X5UNITS SQ SCH (14:00)
[2020-08-21] MEDS: Insulin DETEMIR 100 UNIT/ML X5UNITS SQ SCH (15:26)
[2020-08-21] MEDS: D5% in 0.9% NACL 1,000 ML IVC SCH (15:29)
[2020-08-21] MEDS ORDERED: Perit. Dialysis with Dex 2.5 % 6,000 ML PERITONEAL ONE (19:00)
[2020-08-21] MEDS ORDERED: Perit. Dialysis with Dex 1.5 % 6,000 ML PERITONEAL ONE (19:00)
[2020-08-22] MEDS: *HR* Heparin 5,000 UNIT/ML VIAL SQ SCH ×3 (04:59→22:16)
[2020-08-22 07:42] LABS: Hematocrit 27.8 % (37.5-50.1); Hemoglobin 8.9 g/dL (12.9-16.9); Mean Corpuscular Hemoglobin 30.9 pg (28.0-33.3); Mean Corpuscular Volume 96.5 fL (83.0-100.0); Mean Platelet Volume 10.7 fL (9.4-12.4); Platelet Count 429 K/mcL (140-400); Red Blood Count 2.88 M/mcL (4.19-5.50); Red Cell Distribution Width 15.7 % (11.5-14.5); White Blood Count 13.5 K/mcL (4.3-11.1)
[2020-08-22] MEDS: NIFEdipine XL (24 HR) 60 MG TAB.ER.24 PO SCH (08:02)
[2020-08-22] MEDS: Valsartan 80 MG TABLET PO SCH (08:03)
[2020-08-22] MEDS: Gabapentin 100 MG CAPSULE PO SCH ×3 (08:03→22:16)
[2020-08-22] MEDS: Metoprolol XL (24 HR) Succ 25 MG TAB.ER.24H PO SCH (08:03)
[2020-08-22] MEDS: tiZANidine 4 MG TABLET PO SCH ×3 (08:03→22:16)
[2020-08-22] MEDS: calcitrioL 0.25 MCG CAPSULE PO SCH (08:03)
[2020-08-22] MEDS: cloNIDine HCL 0.1 MG TABLET PO SCH ×3 (08:03→22:16)
[2020-08-22] MEDS: Insulin LISPRO 300 UNITS/3 ML VIAL SQ SCH ×4 (08:04→22:17)
[2020-08-22] MEDS: Lactobacillus 1 EACH CAP.SPRINK PO SCH ×2 (08:04→22:16)
[2020-08-22] MEDS: Insulin DETEMIR 100 UNIT/ML X5UNITS SQ SCH (08:05)
[2020-08-22] MEDS: Piperacillin/Tazobactam 3.375 GM in 0.9 % Sodium Chloride Mini Bag 100 ML IVPB SCH ×2 (08:05→22:17)
[2020-08-22 08:39] LABS: Calcium 7.9 mg/dL (8.6-10.3); Potassium 4.5 mEq/L (3.5-5.1)
[2020-08-22] MEDS: D5% in 0.9% NACL 1,000 ML IVC SCH (16:08)
[2020-08-22] MEDS ORDERED: Perit. Dialysis with Dex 1.5 % 6,000 ML PERITONEAL ONE (19:00)
[2020-08-22] MEDS ORDERED: Perit. Dialysis with Dex 2.5 % 6,000 ML PERITONEAL ONE (19:00)
[2020-08-23 04:29] LABS: Hematocrit 25.3 % (37.5-50.1); Hemoglobin 7.9 g/dL (12.9-16.9); Mean Corpuscular HGB Conc 31.2 g/dL (31.6-35.5); Mean Corpuscular Hemoglobin 29.9 pg (28.0-33.3); Mean Corpuscular Volume 95.8 fL (83.0-100.0); Mean Platelet Volume 10.4 fL (9.4-12.4); Platelet Count 398 K/mcL (140-400); Red Blood Count 2.64 M/mcL (4.19-5.50)
[2020-08-23 04:46] LABS: Calcium 7.6 mg/dL (8.6-10.3); Potassium 4.4 mEq/L (3.5-5.1)
[2020-08-23 04:48] LABS: Bilirubin,Urine Negative (Negative); Blood,Urine Negative (Negative); Clarity,Urine Clear (Clear); Color,Urine Light-Yellow (Yellow); Glucose,Urine (UA) 300 mg/dL (Normal); Ketones,Urine Negative (Negative); Leukocyte Esterase,Urine Negative (Negative); Nitrite,Urine Negative (Negative); PH,Urine 7.5 pH Units (5.0-8.0); Protein,Urine 200 mg/dL (Neg-Trace); RBC,Urine 0-3 per hpf (0-3); Specific Gravity,Urine 1.015 (1.010-1.025); Urobilinogen,Urine Normal (Normal)
[2020-08-23] MEDS: *HR* Heparin 5,000 UNIT/ML VIAL SQ SCH ×3 (06:15→22:18)
[2020-08-23] MEDS: NIFEdipine XL (24 HR) 60 MG TAB.ER.24 PO SCH (08:18)
[2020-08-23] MEDS: calcitrioL 0.25 MCG CAPSULE PO SCH (08:18)
[2020-08-23] MEDS: Gabapentin 100 MG CAPSULE PO SCH ×3 (08:18→22:18)
[2020-08-23] MEDS: Valsartan 80 MG TABLET PO SCH (08:18)
[2020-08-23] MEDS: Lactobacillus 1 EACH CAP.SPRINK PO SCH ×2 (08:18→22:17)
[2020-08-23] MEDS: Metoprolol XL (24 HR) Succ 25 MG TAB.ER.24H PO SCH (08:18)
[2020-08-23] MEDS: cloNIDine HCL 0.1 MG TABLET PO SCH ×3 (08:18→22:18)
[2020-08-23] MEDS: tiZANidine 4 MG TABLET PO SCH ×3 (08:19→22:18)
[2020-08-23] MEDS: Insulin LISPRO 300 UNITS/3 ML VIAL SQ SCH ×3 (08:19→16:55)
[2020-08-23] MEDS: D5% in 0.9% NACL 1,000 ML IVC SCH (14:53)
[2020-08-23] MEDS ORDERED: Perit. Dialysis with Dex 1.5 % 6,000 ML PERITONEAL ONE (19:00)
[2020-08-23] MEDS ORDERED: Perit. Dialysis with Dex 2.5 % 6,000 ML PERITONEAL ONE (19:00)
[2020-08-24 02:17] LABS: Calcium 7.5 mg/dL (8.6-10.3); Phosphorous 6.2 mg/dL (2.7-4.5); Potassium 4.8 mEq/L (3.5-5.1)
[2020-08-24 04:33] LABS: Hematocrit 26.9 % (37.5-50.1); Hemoglobin 8.2 g/dL (12.9-16.9); Mean Corpuscular Hemoglobin 30.3 pg (28.0-33.3); Mean Corpuscular Volume 99.3 fL (83.0-100.0); Red Blood Count 2.71 M/mcL (4.19-5.50)
[2020-08-24 04:34] LABS: Mean Corpuscular HGB Conc 30.5 g/dL (31.6-35.5); Mean Platelet Volume 10.5 fL (9.4-12.4); Platelet Count 424 K/mcL (140-400); Red Cell Distribution Width 15.9 % (11.5-14.5)
[2020-08-24] MEDS: *HR* Heparin 5,000 UNIT/ML VIAL SQ SCH (05:09)
[2020-08-24] MEDS: Insulin LISPRO 300 UNITS/3 ML VIAL SQ SCH (07:51)
[2020-08-24] MEDS: cloNIDine HCL 0.1 MG TABLET PO SCH (07:54)
[2020-08-24] MEDS: tiZANidine 4 MG TABLET PO SCH (07:55)
[2020-08-24] MEDS: Gabapentin 100 MG CAPSULE PO SCH (07:55)
[2020-08-24] MEDS: NIFEdipine XL (24 HR) 60 MG TAB.ER.24 PO SCH (07:55)
[2020-08-24] MEDS: calcitrioL 0.25 MCG CAPSULE PO SCH (07:55)
[2020-08-24] MEDS: Metoprolol XL (24 HR) Succ 25 MG TAB.ER.24H PO SCH (07:55)
[2020-08-24] MEDS: Valsartan 80 MG TABLET PO SCH (07:55)
[2020-08-24] MEDS: Lactobacillus 1 EACH CAP.SPRINK PO SCH (07:55)
[2020-08-24 11:50] VITALS: BP 150/75
== END 2020-08-24 13:09 | disposition home or self-care (01) | DRG 299 ==
LOC: 2NNU 21:34 → EMEROOARM 21:34 → SUATTDRO 08-17 03:12 → 2NNU 08-17 03:55 → 2ANU 08-18 13:36 → SUATTDRO 08-18 16:15
PROVIDERS: ADMIT Internal Medicine; ATTEND Internal Medicine

== ENCOUNTER 2020-09-04 13:16 | Inpatient (IN) ==
[2020-09-04] MEDS ORDERED: Isovue-370 500 ML BOTTLE IVP ONE (14:04)
[2020-09-04] MEDS ORDERED: *HR* HYDROmorphone (PF) 1 MG/ML SYRINGE IVP ONE (14:04)
[2020-09-04] MEDS ORDERED: *HR* Heparin 5,000 UNIT/ML VIAL IVP PRN ×2 (14:21)
[2020-09-04] MEDS ORDERED: *HR* Heparin 5,000 UNIT/ML VIAL IVP ONE (14:21)
[2020-09-04 14:27] LABS: Basophils # 0.1 K/mcL (0.0-0.2); Basophils % 0.7 %; Eosinophils # 0.1 K/mcL (0.0-0.6); Eosinophils % 0.5 %; Hematocrit 22.7 % (37.5-50.1); Hemoglobin 7.1 g/dL (12.9-16.9); Immature Granulocytes % 0.8 % (0-4); Lymphocytes # 0.9 K/mcL (0.6-4.6); Lymphocytes % 6.1 %; Mean Corpuscular HGB Conc 31.3 g/dL (31.6-35.5); Mean Corpuscular Hemoglobin 29.7 pg (28.0-33.3); Mean Platelet Volume 9.9 fL (9.4-12.4); Monocytes # 0.8 K/mcL (0.0-1.3); Monocytes % 5.4 %; Neutrophils # 13.1 K/mcL (1.6-8.9); Platelet Count 501 K/mcL (140-400); Red Blood Count 2.39 M/mcL (4.19-5.50); Red Cell Distribution Width 15.9 % (11.5-14.5); Segmented Neutrophils % 86.5 %; White Blood Count 15.2 K/mcL (4.3-11.1)
[2020-09-04 14:30] LABS: INR 1.1; Prothrombin Time 13.1 Seconds (9.4-12.1)
[2020-09-04 14:38] LABS: Heparin anti-factor XA UFH < 0.04 IU/mL (0.30-0.70)
[2020-09-04 15:01] LABS: Calcium 7.8 mg/dL (8.6-10.3); Potassium 4.5 mEq/L (3.5-5.1)
[2020-09-04] MEDS ORDERED: 0.9 % Sodium Chloride 1,000 ML IVC ONE (15:05)
[2020-09-04] MEDS: Heparin 25,000UNIT/250ML 1/2NS 25,000 UNIT/250 ML IV.SOLN IVC SCH (15:52)
[2020-09-04] MEDS ORDERED: Naloxone 0.4 MG/ML INJ IVP PRN (17:50)
[2020-09-04] MEDS ORDERED: Ondansetron 4 MG/2 ML VIAL IVP PRN (17:50)
[2020-09-04] MEDS ORDERED: Dextrose Gel 15 GM/37.5 ML TUBE PO PRN ×2 (17:58)
[2020-09-04] MEDS ORDERED: D5% in Water 1,000 ML IVC PRN (17:58)
[2020-09-04] MEDS ORDERED: *HR* Dextrose 50 % in Water (Vial) 50 ML VIAL IVP PRN (17:58)
[2020-09-04] MEDS ORDERED: Vancomycin 1 EACH in 0.9 % Sodium Chloride 250 ML IVPB SCH (18:00)
[2020-09-04] MEDS ORDERED: 0.9 % Sodium Chloride 250 ML IVC SCH (18:15)
[2020-09-04] MEDS ORDERED: Vancomycin 1,250 MG/262.5 ML IV.SOLN IVPB ONE (18:26)
[2020-09-04 18:42] LABS: VBG Ionized Calcium 0.87 mmol/L (1.15-1.35)
[2020-09-04] MEDS: Insulin LISPRO 300 UNITS/3 ML VIAL SQ SCH (18:43)
[2020-09-04 19:00] LABS: Magnesium 2.1 mg/dL (1.6-2.6); Phosphorous 6.4 mg/dL (2.7-4.5)
[2020-09-04] MEDS ORDERED: Perit. Dialysis with Dex 2.5 % 12,000 ML PERITONEAL ONE (19:00)
[2020-09-04] MEDS: cloNIDine HCL 0.1 MG TABLET PO SCH ×2 (19:33→22:51)
[2020-09-04] MEDS: Gabapentin 300 MG CAPSULE PO SCH ×2 (20:28→22:51)
[2020-09-04] MEDS ORDERED: *HR* Labetalol 20 MG/4 ML SYRINGE IVP ONE (20:58)
[2020-09-05] MEDS: Piperacillin/Tazobactam 3.375 GM in 0.9 % Sodium Chloride Mini Bag 100 ML IVPB SCH ×2 (00:21→11:51)
[2020-09-05 01:20] LABS: Basophils # 0.1 K/mcL (0.0-0.2); Basophils % 0.8 %; Eosinophils # 0.2 K/mcL (0.0-0.6); Eosinophils % 1.6 %; Hematocrit 22.7 % (37.5-50.1); Immature Granulocytes % 0.8 % (0-4); Lymphocytes # 1.5 K/mcL (0.6-4.6); Lymphocytes % 13.1 %; Mean Corpuscular HGB Conc 30.8 g/dL (31.6-35.5); Mean Corpuscular Hemoglobin 29.9 pg (28.0-33.3); Mean Platelet Volume 10.3 fL (9.4-12.4); Monocytes # 0.7 K/mcL (0.0-1.3); Platelet Count 451 K/mcL (140-400); Red Blood Count 2.34 M/mcL (4.19-5.50); Red Cell Distribution Width 16.1 % (11.5-14.5); Segmented Neutrophils % 77.7 %; White Blood Count 11.6 K/mcL (4.3-11.1)
[2020-09-05 06:36] LABS: Heparin anti-factor XA UFH 0.3 IU/mL (0.30-0.70)
[2020-09-05 06:37] LABS: INR 1.1; Prothrombin Time 12.4 Seconds (9.4-12.1)
[2020-09-05] MEDS: cloNIDine HCL 0.1 MG TABLET PO SCH ×2 (08:15→17:18)
[2020-09-05] MEDS: Valsartan 80 MG TABLET PO SCH (08:15)
[2020-09-05] MEDS: Insulin LISPRO 300 UNITS/3 ML VIAL SQ SCH ×3 (08:15→17:26)
[2020-09-05] MEDS: Gabapentin 300 MG CAPSULE PO SCH ×3 (08:16→19:32)
[2020-09-05] MEDS ORDERED: Calcium Gluconate 1gm/50mL 1 GM/50 ML BAG IVPB ONE (08:47)
[2020-09-05 08:57] LABS: Hematocrit 24.2 % (37.5-50.1); Hemoglobin 7.7 g/dL (12.9-16.9); Mean Corpuscular HGB Conc 31.8 g/dL (31.6-35.5); Mean Corpuscular Hemoglobin 30.3 pg (28.0-33.3); Mean Corpuscular Volume 95.3 fL (83.0-100.0); Mean Platelet Volume 9.7 fL (9.4-12.4); Platelet Count 404 K/mcL (140-400); Red Blood Count 2.54 M/mcL (4.19-5.50); Red Cell Distribution Width 16.1 % (11.5-14.5); White Blood Count 13.7 K/mcL (4.3-11.1)
[2020-09-05 09:17] LABS: Calcium 7.4 mg/dL (8.6-10.3); Magnesium 2.1 mg/dL (1.6-2.6); Phosphorous 8.3 mg/dL (2.7-4.5); Potassium 4.7 mEq/L (3.5-5.1)
[2020-09-05] MEDS ORDERED: *HR* Heparin 10,000 UNIT/10 ML VIAL ONE (11:45)
[2020-09-05] MEDS ORDERED: *HR* FentaNYL (PF) 100 MCG/2 ML VIAL ONE ×2 (11:45→13:34)
[2020-09-05] MEDS ORDERED: *HR* Midazolam HCl 2 MG/2 ML VIAL ONE ×2 (11:45→13:34)
[2020-09-05] MEDS ORDERED: Heparin 1,000 UNITS/500 mL 500 ML ONE ×2 (11:46→13:08)
[2020-09-05] MEDS ORDERED: 0.9 % Sodium Chloride 2,000 ML ONE (11:46)
[2020-09-05] MEDS ORDERED: *HR* Metoprolol 5 MG/5 ML VIAL IVP STA (15:23)
[2020-09-05] MEDS ORDERED: *HR* Labetalol 20 MG/4 ML SYRINGE IVP ONE (16:02)
[2020-09-05] MEDS: Heparin 25,000UNIT/250ML 1/2NS 25,000 UNIT/250 ML IV.SOLN IVC SCH (17:25)
[2020-09-05] MEDS ORDERED: *HR* HYDROmorphone (PF) 1 MG/ML SYRINGE IVP ONE (18:37)
[2020-09-05] MEDS ORDERED: Perit. Dialysis with Dex 1.5 % 12,000 ML PERITONEAL ONE (19:00)
[2020-09-05] MEDS ORDERED: Perit. Dialysis with Dex 2.5 % 12,000 ML PERITONEAL ONE (19:00)
[2020-09-05 19:26] LABS: Hematocrit 30.9 % (37.5-50.1); Mean Corpuscular HGB Conc 31.1 g/dL (31.6-35.5); Mean Corpuscular Hemoglobin 29.7 pg (28.0-33.3); Mean Corpuscular Volume 95.7 fL (83.0-100.0); Mean Platelet Volume 10.3 fL (9.4-12.4); Platelet Count 452 K/mcL (140-400); Red Blood Count 3.23 M/mcL (4.19-5.50); White Blood Count 15.6 K/mcL (4.3-11.1)
[2020-09-05 19:27] LABS: Hemoglobin 9.6 g/dL (12.9-16.9)
[2020-09-05] MEDS: niCARdipine 20 MG/200 ML MLS IVC SCH (19:29)
[2020-09-05] MEDS ORDERED: *HR* Atropine Sulfate 1 MG/10 ML SYRINGE ONE (20:29)
[2020-09-06] MEDS: Piperacillin/Tazobactam 3.375 GM in 0.9 % Sodium Chloride Mini Bag 100 ML IVPB SCH ×2 (01:33→13:47)
[2020-09-06 05:20] LABS: Hematocrit 28.7 % (37.5-50.1); Hemoglobin 9.3 g/dL (12.9-16.9); Mean Corpuscular HGB Conc 32.4 g/dL (31.6-35.5); Mean Corpuscular Hemoglobin 30.7 pg (28.0-33.3); Mean Corpuscular Volume 94.7 fL (83.0-100.0); Mean Platelet Volume 10.1 fL (9.4-12.4); Platelet Count 418 K/mcL (140-400); Red Blood Count 3.03 M/mcL (4.19-5.50); Red Cell Distribution Width 17.5 % (11.5-14.5); White Blood Count 14.9 K/mcL (4.3-11.1)
[2020-09-06 05:23] LABS: INR 1.1; Prothrombin Time 12.4 Seconds (9.4-12.1)
[2020-09-06 05:42] LABS: Calcium 7.6 mg/dL (8.6-10.3); Phosphorous 7.8 mg/dL (2.7-4.5); Potassium 4.3 mEq/L (3.5-5.1)
[2020-09-06] MEDS: niCARdipine 20 MG/200 ML MLS IVC SCH ×3 (08:16→17:39)
[2020-09-06] MEDS: Gabapentin 300 MG CAPSULE PO SCH ×3 (08:19→21:18)
[2020-09-06] MEDS: Insulin LISPRO 300 UNITS/3 ML VIAL SQ SCH ×3 (08:27→16:19)
[2020-09-06] MEDS: cloNIDine HCL 0.1 MG TABLET PO SCH ×3 (12:12→21:18)
[2020-09-06] MEDS ORDERED: *HR* Heparin 5,000 UNIT/ML VIAL IVP PRN (12:57)
[2020-09-06] MEDS ORDERED: Vancomycin 1 EACH in 0.9 % Sodium Chloride 250 ML IVPB PRN (13:00)
[2020-09-06] MEDS: Heparin 25,000UNIT/250ML 1/2NS 25,000 UNIT/250 ML IV.SOLN IVC SCH (13:48)
[2020-09-06] MEDS ORDERED: Amoxicillin/Clavulanate 500 MG TABLET PO SCH (17:00)
[2020-09-06] MEDS ORDERED: Perit. Dialysis with Dex 1.5 % 12,000 ML PERITONEAL ONE (20:10)
[2020-09-06] MEDS ORDERED: Doxycycline 100 MG CAPSULE PO SCH (21:00)
[2020-09-06] MEDS: *HR* Heparin 5,000 UNIT/ML VIAL IVP PRN (21:13)
[2020-09-07] MEDS: Piperacillin/Tazobactam 3.375 GM in 0.9 % Sodium Chloride Mini Bag 100 ML IVPB SCH ×3 (01:10→23:46)
[2020-09-07 03:33] LABS: Hematocrit 24.8 % (37.5-50.1); Hemoglobin 8.1 g/dL (12.9-16.9); Mean Corpuscular HGB Conc 32.7 g/dL (31.6-35.5); Mean Corpuscular Hemoglobin 30.7 pg (28.0-33.3); Mean Corpuscular Volume 93.9 fL (83.0-100.0); Mean Platelet Volume 10.3 fL (9.4-12.4); Platelet Count 407 K/mcL (140-400); Red Blood Count 2.64 M/mcL (4.19-5.50); Red Cell Distribution Width 17.2 % (11.5-14.5); White Blood Count 13.9 K/mcL (4.3-11.1)
[2020-09-07 03:37] LABS: INR 1.2; Prothrombin Time 13.5 Seconds (9.4-12.1)
[2020-09-07 03:55] LABS: Calcium 7.2 mg/dL (8.6-10.3); Magnesium 2.1 mg/dL (1.6-2.6); Phosphorous 7.9 mg/dL (2.7-4.5); Potassium 4.4 mEq/L (3.5-5.1)
[2020-09-07] MEDS: cloNIDine HCL 0.1 MG TABLET PO SCH ×3 (08:17→21:37)
[2020-09-07] MEDS: Insulin LISPRO 300 UNITS/3 ML VIAL SQ SCH ×3 (08:18→16:38)
[2020-09-07] MEDS: Valsartan 80 MG TABLET PO SCH (08:18)
[2020-09-07] MEDS: Gabapentin 300 MG CAPSULE PO SCH ×3 (08:18→21:36)
[2020-09-07] MEDS: Heparin 25,000UNIT/250ML 1/2NS 25,000 UNIT/250 ML IV.SOLN IVC SCH (10:07)
[2020-09-07] MEDS ORDERED: Perit. Dialysis with Dex 1.5 % 12,000 ML PERITONEAL ONE (19:00)
[2020-09-08] MEDS: cloNIDine HCL 0.1 MG TABLET PO SCH ×4 (02:24→19:35)
[2020-09-08 05:44] LABS: Hematocrit 26.7 % (37.5-50.1); Hemoglobin 8.5 g/dL (12.9-16.9); Mean Corpuscular HGB Conc 31.8 g/dL (31.6-35.5); Mean Corpuscular Hemoglobin 29.8 pg (28.0-33.3); Mean Corpuscular Volume 93.7 fL (83.0-100.0); Mean Platelet Volume 10.1 fL (9.4-12.4); Platelet Count 438 K/mcL (140-400); Red Blood Count 2.85 M/mcL (4.19-5.50); Red Cell Distribution Width 16.9 % (11.5-14.5); White Blood Count 15.6 K/mcL (4.3-11.1)
[2020-09-08 05:49] LABS: INR 1.2; Prothrombin Time 13.8 Seconds (9.4-12.1)
[2020-09-08 06:05] LABS: Calcium 7.4 mg/dL (8.6-10.3); Magnesium 2.1 mg/dL (1.6-2.6); Phosphorous 8.5 mg/dL (2.7-4.5); Potassium 5.2 mEq/L (3.5-5.1)
[2020-09-08] MEDS: Gabapentin 300 MG CAPSULE PO SCH ×3 (08:45→19:35)
[2020-09-08] MEDS: Valsartan 80 MG TABLET PO SCH (08:45)
[2020-09-08] MEDS: Insulin LISPRO 300 UNITS/3 ML VIAL SQ SCH ×3 (08:47→16:55)
[2020-09-08] MEDS: *HR* Heparin 5,000 UNIT/ML VIAL IVP PRN (09:38)
[2020-09-08] MEDS: Piperacillin/Tazobactam 3.375 GM in 0.9 % Sodium Chloride Mini Bag 100 ML IVPB SCH ×2 (12:05→23:33)
[2020-09-08] MEDS ORDERED: Perit. Dialysis with Dex 1.5 % 12,000 ML PERITONEAL ONE (21:00)
[2020-09-09] MEDS: Heparin 25,000UNIT/250ML 1/2NS 25,000 UNIT/250 ML IV.SOLN IVC SCH ×2 (04:27→16:42)
[2020-09-09 06:20] LABS: Hematocrit 25.6 % (37.5-50.1); Hemoglobin 8.2 g/dL (12.9-16.9); Mean Corpuscular Hemoglobin 30.1 pg (28.0-33.3); Mean Corpuscular Volume 94.1 fL (83.0-100.0); Mean Platelet Volume 10.3 fL (9.4-12.4); Platelet Count 425 K/mcL (140-400); Red Blood Count 2.72 M/mcL (4.19-5.50); Red Cell Distribution Width 16.4 % (11.5-14.5); White Blood Count 13.9 K/mcL (4.3-11.1)
[2020-09-09 06:31] LABS: INR 1.2; Prothrombin Time 14.1 Seconds (9.4-12.1)
[2020-09-09 06:41] LABS: Calcium 7.3 mg/dL (8.6-10.3); Phosphorous 8.3 mg/dL (2.7-4.5); Potassium 4.1 mEq/L (3.5-5.1)
[2020-09-09] MEDS: Gabapentin 300 MG CAPSULE PO SCH ×3 (08:23→20:40)
[2020-09-09] MEDS: Valsartan 160 MG TABLET PO SCH (08:23)
[2020-09-09] MEDS: cloNIDine HCL 0.1 MG TABLET PO SCH ×3 (08:24→20:39)
[2020-09-09] MEDS: Insulin LISPRO 300 UNITS/3 ML VIAL SQ SCH ×3 (08:29→18:00)
[2020-09-09] MEDS: Piperacillin/Tazobactam 3.375 GM in 0.9 % Sodium Chloride Mini Bag 100 ML IVPB SCH ×2 (11:19→23:22)
[2020-09-09 13:04] LABS: VBG Ionized Calcium 0.88 mmol/L (1.15-1.35)
[2020-09-09] MEDS ORDERED: *HR* Heparin 10,000 UNIT/10 ML VIAL ONE ×2 (13:54→15:01)
[2020-09-09] MEDS ORDERED: Heparin 1,000 UNITS/500 mL 500 ML ONE ×2 (13:55→15:49)
[2020-09-09] MEDS ORDERED: 0.9 % Sodium Chloride 1,000 ML ONE ×2 (13:55→13:56)
[2020-09-09] MEDS ORDERED: *HR* Midazolam HCl 2 MG/2 ML VIAL ONE (14:35)
[2020-09-09] MEDS ORDERED: *HR* FentaNYL (PF) 100 MCG/2 ML VIAL ONE (14:35)
[2020-09-09] MEDS ORDERED: Darbepoetin 100 MCG/0.5 ML SYRINGE SQ SCH (15:30)
[2020-09-09] MEDS ORDERED: Acetaminophen 325 MG TABLET PO PRN (16:12)
[2020-09-09] MEDS ORDERED: *HR* HYDROcodone/Acet 5/325 mg TABLET PO PRN (16:12)
[2020-09-09] MEDS ORDERED: Perit. Dialysis with Dex 1.5 % 12,000 ML PERITONEAL ONE (19:00)
[2020-09-09] MEDS ORDERED: *HR* Labetalol 20 MG/4 ML SYRINGE IVP SCH (22:45)
[2020-09-09] MEDS ORDERED: *HR* Labetalol 20 MG/4 ML SYRINGE IVP PRN (22:47)
[2020-09-10] MEDS ORDERED: *HR* Atropine Sulfate 1 MG/10 ML SYRINGE ONE (01:07)
[2020-09-10] MEDS: Insulin LISPRO 300 UNITS/3 ML VIAL SQ SCH ×3 (07:41→16:31)
[2020-09-10] MEDS: cloNIDine HCL 0.1 MG TABLET PO SCH ×2 (07:42→15:02)
[2020-09-10] MEDS: Valsartan 160 MG TABLET PO SCH (07:42)
[2020-09-10] MEDS: Gabapentin 300 MG CAPSULE PO SCH ×2 (07:43→15:02)
[2020-09-10 08:18] LABS: Hematocrit 27.2 % (37.5-50.1); Hemoglobin 8.8 g/dL (12.9-16.9); Mean Corpuscular HGB Conc 32.4 g/dL (31.6-35.5); Mean Corpuscular Hemoglobin 30.9 pg (28.0-33.3); Mean Corpuscular Volume 95.4 fL (83.0-100.0); Mean Platelet Volume 10.4 fL (9.4-12.4); Platelet Count 467 K/mcL (140-400); Red Blood Count 2.85 M/mcL (4.19-5.50); Red Cell Distribution Width 16.2 % (11.5-14.5); White Blood Count 12.9 K/mcL (4.3-11.1)
[2020-09-10 08:22] LABS: INR 1.3; Prothrombin Time 14.6 Seconds (9.4-12.1)
[2020-09-10 08:32] LABS: Calcium 7.2 mg/dL (8.6-10.3); Magnesium 2.1 mg/dL (1.6-2.6); Phosphorous 8.9 mg/dL (2.7-4.5); Potassium 4.4 mEq/L (3.5-5.1)
[2020-09-10] MEDS ORDERED: amLODIPine 5 MG TABLET PO SCH (09:00)
[2020-09-10] MEDS ORDERED: Vancomycin 500 MG in 0.9 % Sodium Chloride Mini Bag 100 ML IVPB ONE (10:00)
[2020-09-10] MEDS: Piperacillin/Tazobactam 3.375 GM in 0.9 % Sodium Chloride Mini Bag 100 ML IVPB SCH (11:23)
[2020-09-10] MEDS: Heparin 25,000UNIT/250ML 1/2NS 25,000 UNIT/250 ML IV.SOLN IVC SCH (14:59)
[2020-09-10 15:55] VITALS: BP 182/94
[2020-09-10] MEDS: Calcium Gluconate 1gm/50mL 1 GM/50 ML BAG IVPB SCH ×2 (16:00→16:30)
== END 2020-09-10 19:12 | disposition home or self-care (01) | DRG 853 ==
LOC: EMEROOARM 13:16 → 2NNU 13:16 → SUATTDRO 17:57
PROVIDERS: ADMIT Internal Medicine; ATTEND Internal Medicine

== ENCOUNTER 2020-09-24 09:00 | Inpatient (IN) ==
[2020-09-24] MEDS ORDERED: Morphine Sulfate 2 MG/ML SYRINGE IVP ONE (09:12)
[2020-09-24 09:58] LABS: Immature Granulocytes % 0.4 % (0-4); Mean Corpuscular Volume 97.7 fL (83.0-100.0)
[2020-09-24 10:03] LABS: Basophils # 0.2 K/mcL (0.0-0.2); Basophils % 1.3 %; Eosinophils # 0.2 K/mcL (0.0-0.6); Eosinophils % 1.8 %; Hemoglobin 10.2 g/dL (12.9-16.9); Immature Platelets 3.6 % (1.1-6.1); Lymphocytes % 7.1 %; Mean Corpuscular Hemoglobin 29.3 pg (28.0-33.3); Mean Platelet Volume 10.7 fL (9.4-12.4); Monocytes # 0.9 K/mcL (0.0-1.3); Monocytes % 6.4 %; Neutrophils # 11.1 K/mcL (1.6-8.9); Platelet Count 430 K/mcL (140-400); Red Blood Count 3.48 M/mcL (4.19-5.50); Red Cell Distribution Width 15.5 % (11.5-14.5); White Blood Count 13.4 K/mcL (4.3-11.1)
[2020-09-24 10:07] LABS: INR 1.1; Prothrombin Time 12.4 Seconds (9.4-12.1)
[2020-09-24] MEDS ORDERED: *HR* FentaNYL (PF) 100 MCG/2 ML VIAL IVP ONE (10:23)
[2020-09-24 10:24] LABS: Albumin/Globulin Ratio 0.7 (1.1-2.2); Bilirubin,Total 0.2 mg/dL (0.3-1.0); Globulin 4.5 g/dL (2.4-3.5); Potassium 4.7 mEq/L (3.5-5.1); Total Protein 7.5 g/dL (6.4-8.9)
[2020-09-24] MEDS ORDERED: Piperacillin/Tazobactam 3.375 GM in 0.9 % Sodium Chloride Mini Bag 100 ML IVPB ONE (10:32)
[2020-09-24] MEDS ORDERED: Ondansetron 4 MG/2 ML VIAL IVP PRN (10:42)
[2020-09-24] MEDS ORDERED: Naloxone 0.4 MG/ML INJ IVP PRN (10:42)
[2020-09-24] MEDS ORDERED: D5% in Water 1,000 ML IVC PRN (10:47)
[2020-09-24] MEDS ORDERED: Dextrose Gel 15 GM/37.5 ML TUBE PO PRN ×2 (10:47)
[2020-09-24] MEDS ORDERED: *HR* Dextrose 50 % in Water (Vial) 50 ML VIAL IVP PRN (10:47)
[2020-09-24] MEDS ORDERED: Vancomycin 1 EACH in 0.9 % Sodium Chloride 250 ML IVPB PRN (11:00)
[2020-09-24] MEDS: cloNIDine HCL 0.1 MG TABLET PO SCH ×3 (11:13→19:50)
[2020-09-24] MEDS: Valsartan 160 MG TABLET PO SCH (11:13)
[2020-09-24] MEDS: *HR* HYDROmorphone (PF) 1 MG/ML SYRINGE IVP PRN ×2 (11:33→22:20)
[2020-09-24 13:15] LABS: Hepatitis B Surface Antibody 3.29 mIU/mL
[2020-09-24 13:25] LABS: Hepatitis B Surface Antigen Nonreactive (Nonreactive)
[2020-09-24] MEDS: Insulin LISPRO 300 UNITS/3 ML VIAL SQ SCH ×2 (13:33→16:59)
[2020-09-24] MEDS ORDERED: Perit. Dialysis with Dex 1.5 % 12,000 ML PERITONEAL ONE (19:00)
[2020-09-24] MEDS ORDERED: Perit. Dialysis with Dex 2.5 % 12,000 ML PERITONEAL ONE (19:00)
[2020-09-24] MEDS: Gabapentin 100 MG CAPSULE PO SCH (19:50)
[2020-09-24 20:54] LABS: Adenovirus Not Detected (Not Detect); Bordetella Pertussis Not Detected (Not Detect); Chlamydophila pneumoniae Not Detected (Not Detect); Coronavirus 229E Not Detected (Not Detect); Coronavirus HKU1 Not Detected (Not Detect); Coronavirus NL63 Not Detected (Not Detect); Coronavirus OC43 Not Detected (Not Detect); Human Metapneumovirus Not Detected (Not Detect); Human Rhinovirus/Enterovirus Not Detected (Not Detect); Influenza A Subtype 2009 H1 Not Detected (Not Detect); Influenza B Not Detected (Not Detect); Mycoplasma pneumoniae Not Detected (Not Detect); Parainfluenza Virus 1 Not Detected (Not Detect); Parainfluenza Virus 2 Not Detected (Not Detect); Parainfluenza Virus 3 Not Detected (Not Detect); Parainfluenza Virus 4 Not Detected (Not Detect); Respiratory Syncytial Virus Not Detected (Not Detect); SARS-CoV-2 Not Detected (Not Detect)
[2020-09-25 01:49] LABS: Basophils # 0.2 K/mcL (0.0-0.2); Basophils % 1.5 %; Eosinophils # 0.5 K/mcL (0.0-0.6); Eosinophils % 4.7 %; Hematocrit 26.9 % (37.5-50.1); Immature Granulocytes % 0.4 % (0-4); Lymphocytes # 1.4 K/mcL (0.6-4.6); Lymphocytes % 14.4 %; Mean Corpuscular HGB Conc 29.7 g/dL (31.6-35.5); Mean Corpuscular Hemoglobin 29.3 pg (28.0-33.3); Mean Corpuscular Volume 98.5 fL (83.0-100.0); Mean Platelet Volume 9.8 fL (9.4-12.4); Monocytes # 0.8 K/mcL (0.0-1.3); Monocytes % 8.1 %; Neutrophils # 6.9 K/mcL (1.6-8.9); Platelet Count 365 K/mcL (140-400); Red Blood Count 2.73 M/mcL (4.19-5.50); Red Cell Distribution Width 15.5 % (11.5-14.5); Segmented Neutrophils % 70.9 %; White Blood Count 9.7 K/mcL (4.3-11.1)
[2020-09-25 02:08] LABS: Calcium 7.1 mg/dL (8.6-10.3)
[2020-09-25] MEDS: Insulin LISPRO 300 UNITS/3 ML VIAL SQ SCH ×3 (07:45→20:15)
[2020-09-25] MEDS: Gabapentin 100 MG CAPSULE PO SCH ×2 (07:52→20:15)
[2020-09-25] MEDS: Valsartan 160 MG TABLET PO SCH (07:52)
[2020-09-25] MEDS: cloNIDine HCL 0.1 MG TABLET PO SCH ×3 (07:52→20:14)
[2020-09-25] MEDS: *HR* HYDROmorphone (PF) 1 MG/ML SYRINGE IVP PRN ×3 (07:56→19:26)
[2020-09-25] MEDS ORDERED: calcitrioL 0.25 MCG CAPSULE PO SCH (09:00)
[2020-09-25] MEDS: Perit. Dialysis with Dex 1.5 % 2,000 ML PERITONEAL SCH ×3 (09:16→17:48)
[2020-09-25] MEDS ORDERED: Piperacillin/Tazobactam 3.375 GM in 0.9 % Sodium Chloride Mini Bag 100 ML IVPB SCH (10:00)
[2020-09-25] MEDS ORDERED: Lidocaine 1% 20 ML MDV ONE ×2 (14:57→15:16)
[2020-09-25] MEDS ORDERED: Bupivacaine/EPI 1:200k 0.25% 50 ML VIAL ONE (14:57)
[2020-09-25] MEDS ORDERED: *HR* Propofol 200 MG/20 ML VIAL IVP ONE (15:08)
[2020-09-25] MEDS ORDERED: *HR* FentaNYL (PF) 100 MCG/2 ML VIAL ONE ×2 (15:08→15:34)
[2020-09-25] MEDS ORDERED: Lidocaine -MPF 2% 2 ML VIAL ONE (15:11)
[2020-09-25] MEDS ORDERED: Ondansetron 4 MG/2 ML VIAL ONE (15:11)
[2020-09-25] MEDS ORDERED: Dexamethasone 4 MG/ML VIAL ONE (15:11)
[2020-09-25] MEDS ORDERED: *HR* Rocuronium Bromide 50 MG/5 ML VIAL ONE (15:11)
[2020-09-25] MEDS ORDERED: *HR* Dextrose 50 % in Water (Vial) 50 ML VIAL IVP PRN (17:05)
[2020-09-25] MEDS ORDERED: Naloxone 0.4 MG/ML INJ IVP PRN (17:05)
[2020-09-25] MEDS ORDERED: Dextrose Gel 15 GM/37.5 ML TUBE PO PRN ×2 (17:05)
[2020-09-25] MEDS ORDERED: Vancomycin 1 EACH in 0.9 % Sodium Chloride 250 ML IVPB PRN (17:05)
[2020-09-25] MEDS ORDERED: Ondansetron 4 MG/2 ML VIAL IVP PRN (17:05)
[2020-09-25] MEDS ORDERED: D5% in Water 1,000 ML IVC PRN (17:05)
[2020-09-25] MEDS ORDERED: Insulin LISPRO 300 UNITS/3 ML VIAL SQ SCH ×2 (18:00)
[2020-09-25] MEDS ORDERED: *HR* Heparin 5,000 UNIT/ML VIAL SQ SCH (18:00)
[2020-09-25] MEDS: *HR* Heparin 5,000 UNIT/ML VIAL SQ SCH (18:36)
[2020-09-25] MEDS ORDERED: Perit. Dialysis with Dex 1.5 % 12,000 ML PERITONEAL ONE ×2 (19:00)
[2020-09-25] MEDS: Piperacillin/Tazobactam 3.375 GM in 0.9 % Sodium Chloride Mini Bag 100 ML IVPB SCH (21:39)
[2020-09-26 03:15] LABS: Basophils # 0.2 K/mcL (0.0-0.2); Basophils % 1.6 %; Eosinophils # 0.5 K/mcL (0.0-0.6); Eosinophils % 3.8 %; Hematocrit 27.4 % (37.5-50.1); Hemoglobin 8.3 g/dL (12.9-16.9); Immature Granulocytes % 0.3 % (0-4); Lymphocytes # 1.2 K/mcL (0.6-4.6); Lymphocytes % 10.4 %; Mean Corpuscular HGB Conc 30.3 g/dL (31.6-35.5); Mean Corpuscular Hemoglobin 30.1 pg (28.0-33.3); Mean Corpuscular Volume 99.3 fL (83.0-100.0); Mean Platelet Volume 10.2 fL (9.4-12.4); Monocytes # 0.8 K/mcL (0.0-1.3); Monocytes % 7.1 %; Neutrophils # 9.1 K/mcL (1.6-8.9); Platelet Count 384 K/mcL (140-400); Red Blood Count 2.76 M/mcL (4.19-5.50); Red Cell Distribution Width 15.2 % (11.5-14.5); Segmented Neutrophils % 76.8 %; White Blood Count 11.9 K/mcL (4.3-11.1)
[2020-09-26 03:30] LABS: Calcium 7.2 mg/dL (8.6-10.3)
[2020-09-26] MEDS: *HR* Heparin 5,000 UNIT/ML VIAL SQ SCH ×2 (05:05→17:00)
[2020-09-26] MEDS: cloNIDine HCL 0.1 MG TABLET PO SCH ×3 (07:22→20:04)
[2020-09-26] MEDS: calcitrioL 0.25 MCG CAPSULE PO SCH (07:23)
[2020-09-26] MEDS: Piperacillin/Tazobactam 3.375 GM in 0.9 % Sodium Chloride Mini Bag 100 ML IVPB SCH (07:24)
[2020-09-26] MEDS: Valsartan 160 MG TABLET PO SCH (07:24)
[2020-09-26] MEDS: Gabapentin 100 MG CAPSULE PO SCH ×2 (07:24→20:05)
[2020-09-26] MEDS: Insulin LISPRO 300 UNITS/3 ML VIAL SQ SCH ×5 (07:25→20:05)
[2020-09-26] MEDS: *HR* HYDROmorphone (PF) 1 MG/ML SYRINGE IVP PRN ×3 (07:55→23:54)
[2020-09-26] MEDS: Perit. Dialysis with Dex 1.5 % 2,000 ML PERITONEAL SCH ×2 (14:38→14:39)
[2020-09-26] MEDS ORDERED: Perit. Dialysis with Dex 1.5 % 12,000 ML PERITONEAL ONE (19:00)
[2020-09-26] MEDS ORDERED: Insulin DETEMIR 100 UNIT/ML X5UNITS SQ SCH (21:00)
[2020-09-27] MEDS: Perit. Dialysis with Dex 1.5 % 2,000 ML PERITONEAL SCH ×4 (02:08→21:00)
[2020-09-27] MEDS: *HR* Heparin 5,000 UNIT/ML VIAL SQ SCH ×2 (06:35→17:47)
[2020-09-27 08:13] LABS: Basophils # 0.1 K/mcL (0.0-0.2); Basophils % 0.6 %; Hematocrit 25.9 % (37.5-50.1); Hemoglobin 7.8 g/dL (12.9-16.9); Immature Granulocytes % 0.7 % (0-4); Lymphocytes # 0.6 K/mcL (0.6-4.6); Lymphocytes % 3.2 %; Mean Corpuscular HGB Conc 30.1 g/dL (31.6-35.5); Mean Corpuscular Hemoglobin 29.2 pg (28.0-33.3); Mean Platelet Volume 10.1 fL (9.4-12.4); Monocytes # 1.2 K/mcL (0.0-1.3); Monocytes % 6.6 %; Neutrophils # 16.3 K/mcL (1.6-8.9); Platelet Count 344 K/mcL (140-400); Red Blood Count 2.67 M/mcL (4.19-5.50); Red Cell Distribution Width 14.6 % (11.5-14.5); Segmented Neutrophils % 88.9 %; White Blood Count 18.3 K/mcL (4.3-11.1)
[2020-09-27 08:39] LABS: Calcium 7.5 mg/dL (8.6-10.3); Potassium 4.8 mEq/L (3.5-5.1)
[2020-09-27] MEDS: Gabapentin 100 MG CAPSULE PO SCH ×2 (09:01→20:43)
[2020-09-27] MEDS: Valsartan 160 MG TABLET PO SCH (09:01)
[2020-09-27] MEDS: calcitrioL 0.25 MCG CAPSULE PO SCH (09:01)
[2020-09-27] MEDS: cloNIDine HCL 0.1 MG TABLET PO SCH ×3 (09:01→20:42)
[2020-09-27] MEDS: Insulin LISPRO 300 UNITS/3 ML VIAL SQ SCH ×4 (09:02→21:11)
[2020-09-27] MEDS: *HR* HYDROmorphone (PF) 1 MG/ML SYRINGE IVP PRN ×2 (10:50→20:44)
[2020-09-27] MEDS ORDERED: Perit. Dialysis with Dex 1.5 % 12,000 ML PERITONEAL ONE (19:00)
[2020-09-27] MEDS: Piperacillin/Tazobactam 3.375 GM in 0.9 % Sodium Chloride Mini Bag 100 ML IVPB SCH (20:41)
[2020-09-28] MEDS: Perit. Dialysis with Dex 1.5 % 2,000 ML PERITONEAL SCH ×3 (01:21→21:05)
[2020-09-28 02:31] LABS: Basophils # 0.1 K/mcL (0.0-0.2); Basophils % 0.7 %; Eosinophils # 0.1 K/mcL (0.0-0.6); Eosinophils % 0.7 %; Hemoglobin 7.3 g/dL (12.9-16.9); Immature Granulocytes % 0.5 % (0-4); Lymphocytes # 1.1 K/mcL (0.6-4.6); Lymphocytes % 6.2 %; Mean Corpuscular HGB Conc 31.7 g/dL (31.6-35.5); Mean Corpuscular Hemoglobin 30.5 pg (28.0-33.3); Mean Corpuscular Volume 96.2 fL (83.0-100.0); Mean Platelet Volume 10.6 fL (9.4-12.4); Monocytes # 0.9 K/mcL (0.0-1.3); Monocytes % 5.1 %; Neutrophils # 14.6 K/mcL (1.6-8.9); Platelet Count 322 K/mcL (140-400); Red Blood Count 2.39 M/mcL (4.19-5.50); Red Cell Distribution Width 14.5 % (11.5-14.5); Segmented Neutrophils % 86.8 %; White Blood Count 16.8 K/mcL (4.3-11.1)
[2020-09-28 02:53] LABS: Calcium 7.2 mg/dL (8.6-10.3)
[2020-09-28] MEDS: *HR* HYDROmorphone (PF) 1 MG/ML SYRINGE IVP PRN (02:53)
[2020-09-28] MEDS: *HR* Heparin 5,000 UNIT/ML VIAL SQ SCH (06:31)
[2020-09-28] MEDS: Piperacillin/Tazobactam 3.375 GM in 0.9 % Sodium Chloride Mini Bag 100 ML IVPB SCH ×2 (08:37→21:05)
[2020-09-28] MEDS: Gabapentin 100 MG CAPSULE PO SCH ×2 (08:41→21:10)
[2020-09-28] MEDS: calcitrioL 0.25 MCG CAPSULE PO SCH (08:41)
[2020-09-28] MEDS: cloNIDine HCL 0.1 MG TABLET PO SCH ×3 (08:41→21:07)
[2020-09-28] MEDS: Valsartan 160 MG TABLET PO SCH (08:41)
[2020-09-28] MEDS: Insulin LISPRO 300 UNITS/3 ML VIAL SQ SCH ×4 (08:41→21:08)
[2020-09-28] MEDS: Acetaminophen 325 MG TABLET PO PRN (10:23)
[2020-09-28 10:56] LABS: Albumin 2.6 g/dL (3.5-5.7); Albumin/Globulin Ratio 0.7 (1.1-2.2); Bilirubin,Direct 0.1 mg/dL (0.0-0.2); Bilirubin,Indirect 0.2 mg/dL (0.0-1.0); Bilirubin,Total 0.3 mg/dL (0.3-1.0); Globulin 3.9 g/dL (2.4-3.5); Total Protein 6.5 g/dL (6.4-8.9)
[2020-09-28 11:09] LABS: Thyroid Stimulating Hormone 19.31 mcIU/mL (0.340-5.600)
[2020-09-28 11:19] LABS: Folate 14.6 ng/mL (3.0-16.0)
[2020-09-28] MEDS: Thiamine (B-1) 100 MG TABLET PO SCH (14:46)
[2020-09-29] MEDS: Perit. Dialysis with Dex 1.5 % 2,000 ML PERITONEAL SCH ×3 (00:01→17:01)
[2020-09-29 01:05] LABS: Basophils # 0.1 K/mcL (0.0-0.2); Basophils % 0.8 %; Eosinophils # 0.2 K/mcL (0.0-0.6); Eosinophils % 0.9 %; Hematocrit 22.9 % (37.5-50.1); Hemoglobin 7.1 g/dL (12.9-16.9); Immature Granulocytes % 0.6 % (0-4); Lymphocytes # 1.3 K/mcL (0.6-4.6); Lymphocytes % 7.7 %; Mean Corpuscular Hemoglobin 29.7 pg (28.0-33.3); Mean Corpuscular Volume 95.8 fL (83.0-100.0); Mean Platelet Volume 10.5 fL (9.4-12.4); Monocytes # 0.7 K/mcL (0.0-1.3); Monocytes % 4.4 %; Neutrophils # 14.3 K/mcL (1.6-8.9); Platelet Count 307 K/mcL (140-400); Red Blood Count 2.39 M/mcL (4.19-5.50); Red Cell Distribution Width 14.4 % (11.5-14.5); Segmented Neutrophils % 85.6 %; White Blood Count 16.7 K/mcL (4.3-11.1)
[2020-09-29 01:27] LABS: Calcium 7.3 mg/dL (8.6-10.3); Potassium 5.1 mEq/L (3.5-5.1)
[2020-09-29] MEDS: *HR* HYDROmorphone (PF) 1 MG/ML SYRINGE IVP PRN (02:54)
[2020-09-29] MEDS: Levothyroxine 25 MCG TABLET PO SCH (06:15)
[2020-09-29] MEDS ORDERED: Perit. Dialysis with Dex 1.5 % 12,000 ML PERITONEAL ONE (08:45)
[2020-09-29] MEDS: Piperacillin/Tazobactam 3.375 GM in 0.9 % Sodium Chloride Mini Bag 100 ML IVPB SCH ×2 (09:03→22:02)
[2020-09-29] MEDS: Thiamine (B-1) 100 MG TABLET PO SCH (09:03)
[2020-09-29] MEDS: Gabapentin 100 MG CAPSULE PO SCH ×2 (09:03→22:00)
[2020-09-29] MEDS: cloNIDine HCL 0.1 MG TABLET PO SCH ×3 (09:03→21:59)
[2020-09-29] MEDS: Valsartan 160 MG TABLET PO SCH (09:03)
[2020-09-29] MEDS: calcitrioL 0.25 MCG CAPSULE PO SCH (09:03)
[2020-09-29] MEDS: Insulin LISPRO 300 UNITS/3 ML VIAL SQ SCH ×4 (09:06→21:53)
[2020-09-29] MEDS ORDERED: amLODIPine 5 MG TABLET PO SCH (10:30)
[2020-09-29] MEDS: *HR* Heparin 5,000 UNIT/ML VIAL SQ SCH (16:58)
[2020-09-30 02:54] LABS: Basophils # 0.1 K/mcL (0.0-0.2); Basophils % 0.7 %; Eosinophils # 0.1 K/mcL (0.0-0.6); Eosinophils % 0.7 %; Hematocrit 23.9 % (37.5-50.1); Hemoglobin 7.4 g/dL (12.9-16.9); Immature Granulocytes % 0.5 % (0-4); Lymphocytes # 0.8 K/mcL (0.6-4.6); Lymphocytes % 5.3 %; Mean Corpuscular Hemoglobin 30.2 pg (28.0-33.3); Mean Corpuscular Volume 97.6 fL (83.0-100.0); Mean Platelet Volume 10.9 fL (9.4-12.4); Monocytes # 0.7 K/mcL (0.0-1.3); Monocytes % 4.7 %; Neutrophils # 13.6 K/mcL (1.6-8.9); Platelet Count 326 K/mcL (140-400); Red Blood Count 2.45 M/mcL (4.19-5.50); Red Cell Distribution Width 14.5 % (11.5-14.5); Segmented Neutrophils % 88.1 %; White Blood Count 15.4 K/mcL (4.3-11.1)
[2020-09-30 03:09] LABS: Calcium 7.9 mg/dL (8.6-10.3); Potassium 5.6 mEq/L (3.5-5.1)
[2020-09-30] MEDS: Levothyroxine 25 MCG TABLET PO SCH (05:26)
[2020-09-30] MEDS: *HR* Heparin 5,000 UNIT/ML VIAL SQ SCH ×2 (05:26→17:28)
[2020-09-30] MEDS ORDERED: Perit. Dialysis with Dex 1.5 % 12,000 ML PERITONEAL ONE (07:30)
[2020-09-30] MEDS: cloNIDine HCL 0.1 MG TABLET PO SCH ×3 (09:13→20:09)
[2020-09-30] MEDS: Gabapentin 100 MG CAPSULE PO SCH ×2 (09:14→20:08)
[2020-09-30] MEDS: Thiamine (B-1) 100 MG TABLET PO SCH ×3 (09:14→20:09)
[2020-09-30] MEDS: amLODIPine 5 MG TABLET PO SCH (09:14)
[2020-09-30] MEDS: Valsartan 160 MG TABLET PO SCH (09:14)
[2020-09-30] MEDS: calcitrioL 0.25 MCG CAPSULE PO SCH (09:14)
[2020-09-30] MEDS: Insulin LISPRO 300 UNITS/3 ML VIAL SQ SCH ×4 (09:14→20:51)
[2020-09-30] MEDS: Piperacillin/Tazobactam 3.375 GM in 0.9 % Sodium Chloride Mini Bag 100 ML IVPB SCH ×2 (09:15→20:07)
[2020-09-30] MEDS: Perit. Dialysis with Dex 1.5 % 2,000 ML PERITONEAL SCH ×3 (10:03→17:29)
[2020-09-30] MEDS: Doxycycline 100 MG CAPSULE PO SCH (20:09)
[2020-10-01 04:29] LABS: Basophils # 0.1 K/mcL (0.0-0.2); Basophils % 0.9 %; Eosinophils # 0.4 K/mcL (0.0-0.6); Eosinophils % 3.1 %; Hematocrit 23.3 % (37.5-50.1); Immature Granulocytes % 0.3 % (0-4); Lymphocytes # 1.2 K/mcL (0.6-4.6); Lymphocytes % 9.5 %; Mean Corpuscular Hemoglobin 28.9 pg (28.0-33.3); Mean Corpuscular Volume 96.3 fL (83.0-100.0); Mean Platelet Volume 11.1 fL (9.4-12.4); Monocytes # 0.6 K/mcL (0.0-1.3); Monocytes % 5.2 %; Neutrophils # 9.8 K/mcL (1.6-8.9); Platelet Count 310 K/mcL (140-400); Red Blood Count 2.42 M/mcL (4.19-5.50); Red Cell Distribution Width 14.2 % (11.5-14.5); White Blood Count 12.1 K/mcL (4.3-11.1)
[2020-10-01 04:47] LABS: Calcium 7.8 mg/dL (8.6-10.3); Potassium 5.2 mEq/L (3.5-5.1)
[2020-10-01] MEDS: *HR* Heparin 5,000 UNIT/ML VIAL SQ SCH (05:06)
[2020-10-01] MEDS: Levothyroxine 25 MCG TABLET PO SCH (05:07)
[2020-10-01] MEDS ORDERED: Perit. Dialysis with Dex 1.5 % 12,000 ML PERITONEAL ONE (08:00)
[2020-10-01] MEDS: Doxycycline 100 MG CAPSULE PO SCH (08:35)
[2020-10-01] MEDS: Acetaminophen 325 MG TABLET PO PRN (08:35)
[2020-10-01] MEDS: calcitrioL 0.25 MCG CAPSULE PO SCH (08:36)
[2020-10-01] MEDS: amLODIPine 5 MG TABLET PO SCH (08:36)
[2020-10-01] MEDS: Thiamine (B-1) 100 MG TABLET PO SCH (08:36)
[2020-10-01] MEDS: Valsartan 160 MG TABLET PO SCH (08:36)
[2020-10-01] MEDS: cloNIDine HCL 0.1 MG TABLET PO SCH (08:36)
[2020-10-01] MEDS: Gabapentin 100 MG CAPSULE PO SCH (08:36)
[2020-10-01] MEDS: Piperacillin/Tazobactam 3.375 GM in 0.9 % Sodium Chloride Mini Bag 100 ML IVPB SCH (08:36)
[2020-10-01] MEDS: Perit. Dialysis with Dex 1.5 % 2,000 ML PERITONEAL SCH (08:38)
[2020-10-01] MEDS: Insulin LISPRO 300 UNITS/3 ML VIAL SQ SCH ×2 (08:38→12:29)
[2020-10-01] MEDS ORDERED: Ferumoxytol 510 MG in 0.9 % Sodium Chloride 100 ML IVPB ONE (10:02)
[2020-10-01 11:47] VITALS: BP 177/84
[2020-10-01] MEDS ORDERED: Amoxicillin/Clavulanate 500 MG TABLET PO SCH (17:00)
[2020-10-01] MEDS ORDERED: Gabapentin 300 MG CAPSULE PO SCH (21:00)
[2020-10-02] MEDS ORDERED: *HR* Glimepiride 2 MG TABLET PO SCH (07:30)
== END 2020-10-01 15:20 | disposition home or self-care (01) | DRG 239 ==
LOC: 2ANU 09:00 → EMEROOARM 09:00 → 2ANU 13:02 → SUATTDRO 09-25 14:09
PROVIDERS: ADMIT Internal Medicine; ATTEND General Practice

== ENCOUNTER 2020-10-22 17:47 | Inpatient (IN) ==
[2020-10-22 18:52] LABS: Basophils # 0.1 K/mcL (0.0-0.2); Basophils % 0.9 %; Eosinophils # 0.1 K/mcL (0.0-0.6); Eosinophils % 1.3 %; Hematocrit 32.7 % (37.5-50.1); Hemoglobin 10.6 g/dL (12.9-16.9); Immature Granulocytes % 0.4 % (0-4); Lymphocytes # 1.8 K/mcL (0.6-4.6); Lymphocytes % 15.8 %; Mean Corpuscular HGB Conc 32.4 g/dL (31.6-35.5); Mean Corpuscular Hemoglobin 29.7 pg (28.0-33.3); Mean Corpuscular Volume 91.6 fL (83.0-100.0); Mean Platelet Volume 10.1 fL (9.4-12.4); Monocytes # 0.5 K/mcL (0.0-1.3); Monocytes % 4.7 %; Neutrophils # 8.5 K/mcL (1.6-8.9); Platelet Count 548 K/mcL (140-400); Red Blood Count 3.57 M/mcL (4.19-5.50); Red Cell Distribution Width 15.8 % (11.5-14.5); Segmented Neutrophils % 76.9 %; White Blood Count 11.1 K/mcL (4.3-11.1)
[2020-10-22 19:13] LABS: Albumin 2.9 g/dL (3.5-5.7); Albumin/Globulin Ratio 0.6 (1.1-2.2); Bilirubin,Total 0.2 mg/dL (0.3-1.0); Calcium 8.7 mg/dL (8.6-10.3); Globulin 4.9 g/dL (2.4-3.5); Potassium 4.3 mEq/L (3.5-5.1); Total Protein 7.8 g/dL (6.4-8.9)
[2020-10-22] MEDS ORDERED: Piperacillin/Tazobactam 3.375 GM in Water for inj. (sterile) 20 ML IVP ONE (19:36)
[2020-10-22] MEDS ORDERED: Water for inj. (sterile) 20 ML IV ONE (20:24)
[2020-10-22 20:26] LABS: Adenovirus Not Detected (Not Detect); Bordetella Pertussis Not Detected (Not Detect); Chlamydophila pneumoniae Not Detected (Not Detect); Coronavirus 229E Not Detected (Not Detect); Coronavirus HKU1 Not Detected (Not Detect); Coronavirus NL63 Not Detected (Not Detect); Coronavirus OC43 Not Detected (Not Detect); Human Metapneumovirus Not Detected (Not Detect); Human Rhinovirus/Enterovirus Not Detected (Not Detect); Influenza A Subtype 2009 H1 Not Detected (Not Detect); Influenza B Not Detected (Not Detect); Mycoplasma pneumoniae Not Detected (Not Detect); Parainfluenza Virus 1 Not Detected (Not Detect); Parainfluenza Virus 2 Not Detected (Not Detect); Parainfluenza Virus 3 Not Detected (Not Detect); Parainfluenza Virus 4 Not Detected (Not Detect); Respiratory Syncytial Virus Not Detected (Not Detect); SARS-CoV-2 Not Detected (Not Detect)
[2020-10-22] MEDS ORDERED: Vancomycin 1,000 MG VIAL ONE (20:28)
[2020-10-22] MEDS ORDERED: Acetaminophen 325 MG TABLET PO PRN (21:48)
[2020-10-22] MEDS ORDERED: Ondansetron 4 MG/2 ML VIAL IVP PRN (21:48)
[2020-10-22] MEDS ORDERED: Naloxone 0.4 MG/ML INJ IVP PRN (21:48)
[2020-10-22] MEDS ORDERED: *HR* Dextrose 50 % in Water (Vial) 50 ML VIAL IVP PRN (21:52)
[2020-10-22] MEDS ORDERED: Dextrose Gel 15 GM/37.5 ML TUBE PO PRN ×2 (21:52)
[2020-10-22] MEDS ORDERED: D5% in Water 1,000 ML IVC PRN (21:52)
[2020-10-22] MEDS ORDERED: Vancomycin 1 EACH in 0.9 % Sodium Chloride 250 ML IVPB PRN (22:00)
[2020-10-22] MEDS: *HR* Heparin 5,000 UNIT/ML VIAL SQ SCH (22:51)
[2020-10-22] MEDS ORDERED: 0.9 % Sodium Chloride 1,000 ML IVC SCH (23:55)
[2020-10-23] MEDS: Insulin LISPRO 300 UNITS/3 ML VIAL SQ SCH ×5 (00:40→23:49)
[2020-10-23 02:34] LABS: INR 1.1; Prothrombin Time 13.1 Seconds (9.4-12.1)
[2020-10-23 02:36] LABS: Activated Partial Thrombo Time 26.3 Seconds (26.0-36.0)
[2020-10-23 02:38] LABS: Hematocrit 26.2 % (37.5-50.1); Hemoglobin 8.3 g/dL (12.9-16.9); Mean Corpuscular HGB Conc 31.7 g/dL (31.6-35.5); Mean Corpuscular Volume 91.6 fL (83.0-100.0); Mean Platelet Volume 10.4 fL (9.4-12.4); Platelet Count 451 K/mcL (140-400); Red Blood Count 2.86 M/mcL (4.19-5.50); Red Cell Distribution Width 15.6 % (11.5-14.5); White Blood Count 9.6 K/mcL (4.3-11.1)
[2020-10-23] MEDS ORDERED: Piperacillin/Tazobactam 3.375 GM in 0.9 % Sodium Chloride Mini Bag 100 ML IVPB SCH ×2 (03:00)
[2020-10-23 03:04] LABS: Potassium 4.3 mEq/L (3.5-5.1)
[2020-10-23 03:05] LABS: Albumin 2.1 g/dL (3.5-5.7); Albumin/Globulin Ratio 0.6 (1.1-2.2); Bilirubin,Total 0.2 mg/dL (0.3-1.0); Calcium 7.3 mg/dL (8.6-10.3); Globulin 3.5 g/dL (2.4-3.5); Total Protein 5.6 g/dL (6.4-8.9)
[2020-10-23] MEDS: *HR* Heparin 5,000 UNIT/ML VIAL SQ SCH ×3 (06:33→22:02)
[2020-10-23 10:23] LABS: Calcium 7.3 mg/dL (8.6-10.3); Potassium 4.4 mEq/L (3.5-5.1)
[2020-10-23 12:37] LABS: Hepatitis B Surface Antibody < 3.10 mIU/mL
[2020-10-23 12:47] LABS: Hepatitis B Surface Antigen Nonreactive (Nonreactive)
[2020-10-23] MEDS: *HR* OxyCODONE Immed Rel 5 MG TABLET PO PRN ×2 (16:00→22:02)
[2020-10-23] MEDS: Piperacillin/Tazobactam 3.375 GM in 0.9 % Sodium Chloride Mini Bag 100 ML IVPB SCH (17:36)
[2020-10-23] MEDS ORDERED: Perit. Dialysis with Dex 2.5 % 12,000 ML PERITONEAL ONE (19:00)
[2020-10-23] MEDS: Thiamine (B-1) 100 MG TABLET PO SCH (19:25)
[2020-10-23] MEDS: cloNIDine HCL 0.1 MG TABLET PO SCH (19:26)
[2020-10-23] MEDS: Gabapentin 300 MG CAPSULE PO SCH (19:26)
[2020-10-24] MEDS: Piperacillin/Tazobactam 3.375 GM in 0.9 % Sodium Chloride Mini Bag 100 ML IVPB SCH ×2 (06:01→17:35)
[2020-10-24] MEDS: Levothyroxine 25 MCG TABLET PO SCH (06:01)
[2020-10-24] MEDS: *HR* Heparin 5,000 UNIT/ML VIAL SQ SCH ×3 (06:01→20:04)
[2020-10-24] MEDS: Insulin LISPRO 300 UNITS/3 ML VIAL SQ SCH ×3 (06:04→18:02)
[2020-10-24 06:26] LABS: Basophils # 0.1 K/mcL (0.0-0.2); Basophils % 0.9 %; Eosinophils # 0.2 K/mcL (0.0-0.6); Eosinophils % 2.4 %; Hematocrit 26.7 % (37.5-50.1); Hemoglobin 8.4 g/dL (12.9-16.9); Immature Granulocytes % 0.5 % (0-4); Lymphocytes # 1.2 K/mcL (0.6-4.6); Lymphocytes % 13.3 %; Mean Corpuscular HGB Conc 31.5 g/dL (31.6-35.5); Mean Corpuscular Hemoglobin 28.7 pg (28.0-33.3); Mean Corpuscular Volume 91.1 fL (83.0-100.0); Monocytes # 0.7 K/mcL (0.0-1.3); Monocytes % 7.6 %; Neutrophils # 6.5 K/mcL (1.6-8.9); Platelet Count 457 K/mcL (140-400); Red Blood Count 2.93 M/mcL (4.19-5.50); Red Cell Distribution Width 15.6 % (11.5-14.5); Segmented Neutrophils % 75.3 %; White Blood Count 8.7 K/mcL (4.3-11.1)
[2020-10-24] MEDS: calcitrioL 0.25 MCG CAPSULE PO SCH (08:19)
[2020-10-24] MEDS: cloNIDine HCL 0.1 MG TABLET PO SCH ×3 (08:19→20:04)
[2020-10-24] MEDS: Thiamine (B-1) 100 MG TABLET PO SCH ×3 (08:19→20:04)
[2020-10-24] MEDS: Valsartan 160 MG TABLET PO SCH (08:19)
[2020-10-24] MEDS: Gabapentin 300 MG CAPSULE PO SCH ×2 (08:19→20:04)
[2020-10-24] MEDS: amLODIPine 5 MG TABLET PO SCH (08:19)
[2020-10-24] MEDS: *HR* OxyCODONE Immed Rel 5 MG TABLET PO PRN ×2 (11:14→17:35)
[2020-10-24] MEDS ORDERED: Perit. Dialysis with Dex 2.5 % 12,000 ML PERITONEAL ONE (19:00)
[2020-10-25] MEDS: *HR* OxyCODONE Immed Rel 5 MG TABLET PO PRN (00:09)
[2020-10-25] MEDS: Insulin LISPRO 300 UNITS/3 ML VIAL SQ SCH ×3 (00:10→11:47)
[2020-10-25] MEDS: Piperacillin/Tazobactam 3.375 GM in 0.9 % Sodium Chloride Mini Bag 100 ML IVPB SCH (06:08)
[2020-10-25] MEDS: Levothyroxine 25 MCG TABLET PO SCH (06:08)
[2020-10-25] MEDS: *HR* Heparin 5,000 UNIT/ML VIAL SQ SCH ×3 (06:08→22:04)
[2020-10-25 06:43] LABS: Basophils # 0.1 K/mcL (0.0-0.2); Basophils % 1.1 %; Eosinophils # 0.3 K/mcL (0.0-0.6); Eosinophils % 3.9 %; Hematocrit 26.1 % (37.5-50.1); Hemoglobin 8.1 g/dL (12.9-16.9); Immature Granulocytes % 0.6 % (0-4); Lymphocytes # 1.1 K/mcL (0.6-4.6); Lymphocytes % 15.2 %; Mean Corpuscular Hemoglobin 28.7 pg (28.0-33.3); Mean Corpuscular Volume 92.6 fL (83.0-100.0); Mean Platelet Volume 9.9 fL (9.4-12.4); Monocytes # 0.6 K/mcL (0.0-1.3); Monocytes % 8.2 %; Neutrophils # 5.1 K/mcL (1.6-8.9); Platelet Count 419 K/mcL (140-400); Red Blood Count 2.82 M/mcL (4.19-5.50); Red Cell Distribution Width 15.6 % (11.5-14.5); White Blood Count 7.2 K/mcL (4.3-11.1)
[2020-10-25 07:02] LABS: Calcium 7.5 mg/dL (8.6-10.3); Potassium 4.8 mEq/L (3.5-5.1)
[2020-10-25] MEDS: Thiamine (B-1) 100 MG TABLET PO SCH ×3 (08:20→22:03)
[2020-10-25] MEDS: cloNIDine HCL 0.1 MG TABLET PO SCH ×3 (08:20→22:03)
[2020-10-25] MEDS: Valsartan 160 MG TABLET PO SCH (08:20)
[2020-10-25] MEDS: amLODIPine 5 MG TABLET PO SCH (08:20)
[2020-10-25] MEDS: calcitrioL 0.25 MCG CAPSULE PO SCH (08:20)
[2020-10-25] MEDS: Gabapentin 300 MG CAPSULE PO SCH ×2 (08:20→22:03)
[2020-10-25] MEDS ORDERED: Lidocaine -MPF 4% 5 ML AMPUL ONE (12:13)
[2020-10-25] MEDS ORDERED: *HR* Midazolam HCl 2 MG/2 ML VIAL ONE ×2 (12:23→17:19)
[2020-10-25] MEDS ORDERED: *HR* Propofol 200 MG/20 ML VIAL IVP ONE (12:24)
[2020-10-25] MEDS ORDERED: *HR* FentaNYL (PF) 100 MCG/2 ML VIAL ONE ×2 (12:24→15:56)
[2020-10-25] MEDS ORDERED: Ondansetron 4 MG/2 ML VIAL ONE (12:27)
[2020-10-25] MEDS ORDERED: Lidocaine -MPF 2% 2 ML VIAL ONE ×2 (12:27→12:41)
[2020-10-25] MEDS ORDERED: Dexamethasone 4 MG/ML VIAL ONE (12:27)
[2020-10-25] MEDS ORDERED: *HR* Succinylcholine 200 MG/10 ML VIAL IVP ONE (12:28)
[2020-10-25] MEDS ORDERED: Ropivacaine/PF 0.5% 30 ML VIAL ONE (12:40)
[2020-10-25] MEDS ORDERED: ROPIVACAINE/PF/NS 0.25% 1 EACH SYRINGE INTRAART ONE (12:41)
[2020-10-25] MEDS ORDERED: *HR* PHENYLEPHRINE 1,000 MCG/10 ML SYRINGE IVP ONE (14:22)
[2020-10-25] MEDS ORDERED: Haloperidol Lactate 5 MG/ML VIAL IVP PRN (16:55)
[2020-10-25] MEDS ORDERED: ceFAZolin 1,000 MG, Sodium Chloride IRRigation 1,000 ML IR ONE ×3 (17:30→19:40)
[2020-10-25] MEDS ORDERED: Perit. Dialysis with Dex 2.5 % 12,000 ML PERITONEAL ONE ×2 (19:00→19:40)
[2020-10-25] MEDS ORDERED: Dextrose Gel 15 GM/37.5 ML TUBE PO PRN ×2 (19:40)
[2020-10-25] MEDS ORDERED: Acetaminophen 325 MG TABLET PO PRN (19:40)
[2020-10-25] MEDS ORDERED: Naloxone 0.4 MG/ML INJ IVP PRN (19:40)
[2020-10-25] MEDS ORDERED: *HR* OxyCODONE Immed Rel 5 MG TABLET PO PRN (19:40)
[2020-10-25] MEDS ORDERED: D5% in Water 1,000 ML IVC PRN (19:40)
[2020-10-25] MEDS ORDERED: Ondansetron 4 MG/2 ML VIAL IVP PRN (19:40)
[2020-10-25] MEDS ORDERED: *HR* Dextrose 50 % in Water (Vial) 50 ML VIAL IVP PRN (19:40)
[2020-10-25] MEDS ORDERED: 0.9 % Sodium Chloride 250 ML ONE (22:25)
[2020-10-25] MEDS: Morphine PCA 30 MG/ 30 ML 30 ML PCA.VIAL IVC PRN (22:43)
[2020-10-26] MEDS ORDERED: 0.9 % Sodium Chloride 250 ML IV ONE (00:16)
[2020-10-26] MEDS: CeFAZolin 2 GM/120 ML BAG IVPB SCH ×2 (00:42→08:24)
[2020-10-26] MEDS: Insulin LISPRO 300 UNITS/3 ML VIAL SUBQ SCH ×4 (01:45→16:36)
[2020-10-26] MEDS: Levothyroxine 25 MCG TABLET PO SCH (05:43)
[2020-10-26] MEDS: *HR* Heparin 5,000 UNIT/ML VIAL SQ SCH ×3 (05:43→20:52)
[2020-10-26] MEDS ORDERED: Vancomycin 500 MG in 0.9 % Sodium Chloride Mini Bag 100 ML IVPB ONE (06:00)
[2020-10-26] MEDS: Valsartan 160 MG TABLET PO SCH (08:23)
[2020-10-26] MEDS: Thiamine (B-1) 100 MG TABLET PO SCH ×3 (08:23→20:51)
[2020-10-26] MEDS: amLODIPine 5 MG TABLET PO SCH (08:24)
[2020-10-26] MEDS: Gabapentin 300 MG CAPSULE PO SCH ×2 (08:24→20:51)
[2020-10-26] MEDS: cloNIDine HCL 0.1 MG TABLET PO SCH ×3 (08:24→20:52)
[2020-10-26] MEDS: calcitrioL 0.25 MCG CAPSULE PO SCH (08:24)
[2020-10-26] MEDS ORDERED: *HR* HYDROmorphone (PF) 1 MG/ML SYRINGE IVP ONE (14:21)
[2020-10-26] MEDS ORDERED: 0.9 % Sodium Chloride 250 ML ONE (14:24)
[2020-10-26] MEDS: *HR* OxyCODONE/APAP 5/325 TABLET PO PRN (18:18)
[2020-10-26] MEDS ORDERED: Perit. Dialysis with Dex 2.5 % 6,000 ML PERITONEAL ONE (19:00)
[2020-10-26] MEDS ORDERED: Perit. Dialysis with Dex 1.5 % 6,000 ML PERITONEAL ONE (19:00)
[2020-10-26] MEDS: Insulin LISPRO 300 UNITS/3 ML VIAL SQ SCH (21:42)
[2020-10-27] MEDS: Insulin LISPRO 300 UNITS/3 ML VIAL SUBQ SCH ×4 (00:06→16:04)
[2020-10-27 01:55] LABS: Basophils # 0.1 K/mcL (0.0-0.2); Basophils % 1.1 %; Eosinophils # 0.2 K/mcL (0.0-0.6); Eosinophils % 2.3 %; Hematocrit 25.5 % (37.5-50.1); Immature Granulocytes % 0.2 % (0-4); Lymphocytes # 1.6 K/mcL (0.6-4.6); Lymphocytes % 19.4 %; Mean Corpuscular HGB Conc 31.4 g/dL (31.6-35.5); Mean Corpuscular Hemoglobin 29.2 pg (28.0-33.3); Mean Corpuscular Volume 93.1 fL (83.0-100.0); Mean Platelet Volume 10.1 fL (9.4-12.4); Monocytes # 0.6 K/mcL (0.0-1.3); Monocytes % 7.9 %; Neutrophils # 5.6 K/mcL (1.6-8.9); Platelet Count 423 K/mcL (140-400); Red Blood Count 2.74 M/mcL (4.19-5.50); Red Cell Distribution Width 15.7 % (11.5-14.5); Segmented Neutrophils % 69.1 %; White Blood Count 8.2 K/mcL (4.3-11.1)
[2020-10-27 02:00] LABS: Calcium 7.4 mg/dL (8.6-10.3); Potassium 4.5 mEq/L (3.5-5.1)
[2020-10-27] MEDS ORDERED: 0.9 % Sodium Chloride 250 ML ONE ×2 (02:56→16:44)
[2020-10-27] MEDS: *HR* Heparin 5,000 UNIT/ML VIAL SQ SCH ×3 (05:04→19:39)
[2020-10-27] MEDS: Levothyroxine 25 MCG TABLET PO SCH (05:05)
[2020-10-27] MEDS: Gabapentin 300 MG CAPSULE PO SCH ×2 (07:36→19:38)
[2020-10-27] MEDS: calcitrioL 0.25 MCG CAPSULE PO SCH (07:37)
[2020-10-27] MEDS: cloNIDine HCL 0.1 MG TABLET PO SCH ×3 (07:37→19:39)
[2020-10-27] MEDS: amLODIPine 5 MG TABLET PO SCH (07:37)
[2020-10-27] MEDS: *HR* OxyCODONE/APAP 5/325 TABLET PO PRN ×2 (07:37→14:03)
[2020-10-27] MEDS: Thiamine (B-1) 100 MG TABLET PO SCH ×3 (07:37→19:38)
[2020-10-27] MEDS: Valsartan 160 MG TABLET PO SCH (07:37)
[2020-10-27 08:23] LABS: % Iron Saturation 33 % (20-55); Iron 51 mcg/dL (65-175); Transferrin 109 mg/dL (203-362)
[2020-10-27 08:41] LABS: Ferritin 875 ng/mL (20-250)
[2020-10-27] MEDS: Morphine PCA 30 MG/ 30 ML 30 ML PCA.VIAL IVC PRN (18:02)
[2020-10-27] MEDS ORDERED: Perit. Dialysis with Dex 2.5 % 12,000 ML PERITONEAL ONE (19:17)
[2020-10-27] MEDS ORDERED: Perit. Dialysis with Dex 1.5 % 12,000 ML PERITONEAL ONE (19:17)
[2020-10-28] MEDS: Insulin LISPRO 300 UNITS/3 ML VIAL SUBQ SCH ×3 (01:11→11:25)
[2020-10-28] MEDS ORDERED: 0.9 % Sodium Chloride 250 ML ONE (05:16)
[2020-10-28] MEDS: *HR* Heparin 5,000 UNIT/ML VIAL SQ SCH ×2 (05:17→13:38)
[2020-10-28] MEDS: Levothyroxine 25 MCG TABLET PO SCH (05:17)
[2020-10-28 07:07] LABS: Basophils # 0.1 K/mcL (0.0-0.2); Basophils % 0.5 %; Eosinophils # 0.1 K/mcL (0.0-0.6); Eosinophils % 0.5 %; Hematocrit 30.6 % (37.5-50.1); Immature Granulocytes % 0.7 % (0-4); Lymphocytes # 1.5 K/mcL (0.6-4.6); Lymphocytes % 8.6 %; Mean Corpuscular HGB Conc 31.7 g/dL (31.6-35.5); Mean Corpuscular Hemoglobin 29.1 pg (28.0-33.3); Mean Corpuscular Volume 91.9 fL (83.0-100.0); Monocytes # 0.6 K/mcL (0.0-1.3); Monocytes % 3.5 %; Neutrophils # 15.1 K/mcL (1.6-8.9); Platelet Count 447 K/mcL (140-400); Red Blood Count 3.33 M/mcL (4.19-5.50); Red Cell Distribution Width 15.6 % (11.5-14.5); Segmented Neutrophils % 86.2 %
[2020-10-28 07:08] LABS: Hemoglobin 9.7 g/dL (12.9-16.9); White Blood Count 17.5 K/mcL (4.3-11.1)
[2020-10-28 07:27] LABS: Calcium 7.4 mg/dL (8.6-10.3); Potassium 4.9 mEq/L (3.5-5.1)
[2020-10-28 07:36] VITALS: BP 154/84
[2020-10-28] MEDS ORDERED: Ampicillin/Sulbactam 1,500 MG in 0.9 % Sodium Chloride Mini Bag 100 ML IVPB ONE (10:34)
[2020-10-28] MEDS: Valsartan 160 MG TABLET PO SCH (11:13)
[2020-10-28] MEDS: cloNIDine HCL 0.1 MG TABLET PO SCH (11:13)
[2020-10-28] MEDS: Thiamine (B-1) 100 MG TABLET PO SCH (11:13)
[2020-10-28] MEDS: Gabapentin 300 MG CAPSULE PO SCH (11:13)
[2020-10-28] MEDS: amLODIPine 5 MG TABLET PO SCH (11:13)
[2020-10-28] MEDS: calcitrioL 0.25 MCG CAPSULE PO SCH (11:14)
== END 2020-10-28 18:11 | disposition home health service (06) ==
LOC: EMEROOARM 17:47 → 2ANU 17:47 → SUATTDRO 21:26 → 2ANU 21:57
PROVIDERS: ADMIT Internal Medicine; ATTEND Family Medicine

== ENCOUNTER 2020-11-10 15:35 | Observation (INO) ==
[2020-11-10] MEDS ORDERED: Naloxone 0.4 MG/ML INJ IVP PRN ×2 (18:01→19:25)
[2020-11-10 18:38] LABS: Basophils % 0.3 %; Hematocrit 27.7 % (37.5-50.1); Hemoglobin 8.7 g/dL (12.9-16.9); Immature Granulocytes % 0.5 % (0-4); Lymphocytes # 0.7 K/mcL (0.6-4.6); Lymphocytes % 9.3 %; Mean Corpuscular HGB Conc 31.4 g/dL (31.6-35.5); Mean Corpuscular Hemoglobin 27.9 pg (28.0-33.3); Mean Corpuscular Volume 88.8 fL (83.0-100.0); Mean Platelet Volume 11.5 fL (9.4-12.4); Monocytes # 0.1 K/mcL (0.0-1.3); Monocytes % 1.8 %; Neutrophils # 6.9 K/mcL (1.6-8.9); Platelet Count 255 K/mcL (140-400); Red Blood Count 3.12 M/mcL (4.19-5.50); Red Cell Distribution Width 15.9 % (11.5-14.5); Segmented Neutrophils % 88.1 %; White Blood Count 7.8 K/mcL (4.3-11.1)
[2020-11-10 18:56] LABS: Calcium 7.3 mg/dL (8.6-10.3); Potassium 4.7 mEq/L (3.5-5.1)
[2020-11-10 19:02] LABS: Platelet Estimate Normal (Normal)
[2020-11-10] MEDS ORDERED: Dextrose Gel 15 GM/37.5 ML TUBE PO PRN ×2 (19:25)
[2020-11-10] MEDS ORDERED: D5% in Water 1,000 ML IVC PRN (19:25)
[2020-11-10] MEDS ORDERED: Acetaminophen 325 MG TABLET PO PRN (19:25)
[2020-11-10] MEDS ORDERED: Ondansetron 4 MG/2 ML VIAL IVP PRN (19:25)
[2020-11-10] MEDS ORDERED: *HR* Dextrose 50 % in Water (Vial) 50 ML VIAL IVP PRN (19:25)
[2020-11-10] MEDS ORDERED: *HR* HYDROcodone/Acet 5/325 mg TABLET PO PRN (19:25)
[2020-11-10] MEDS ORDERED: *HR* OxyCODONE Immed Rel 5 MG TABLET PO PRN (19:25)
[2020-11-10] MEDS ORDERED: Benzonatate 100 MG CAPSULE PO PRN (20:19)
[2020-11-11] MEDS: *HR* Heparin 5,000 UNIT/ML VIAL SQ SCH ×2 (05:40→18:14)
[2020-11-11 06:32] LABS: Hematocrit 31.1 % (37.5-50.1); Hemoglobin 9.8 g/dL (12.9-16.9); Mean Corpuscular HGB Conc 31.5 g/dL (31.6-35.5); Mean Corpuscular Hemoglobin 28.4 pg (28.0-33.3); Mean Corpuscular Volume 90.1 fL (83.0-100.0); Mean Platelet Volume 12.4 fL (9.4-12.4); Platelet Count 288 K/mcL (140-400); Red Blood Count 3.45 M/mcL (4.19-5.50); Red Cell Distribution Width 15.8 % (11.5-14.5); Segmented Neutrophils % 83.4 %; White Blood Count 7.6 K/mcL (4.3-11.1)
[2020-11-11 06:33] LABS: Basophils % 0.3 %; Immature Granulocytes % 0.7 % (0-4); Lymphocytes # 0.9 K/mcL (0.6-4.6); Lymphocytes % 12.1 %; Monocytes # 0.3 K/mcL (0.0-1.3); Monocytes % 3.5 %; Neutrophils # 6.4 K/mcL (1.6-8.9)
[2020-11-11 06:42] LABS: Fibrinogen 582 mg/dL (169-393)
[2020-11-11 06:49] LABS: D-Dimer 1898 ng/mLFEU (0-500)
[2020-11-11 07:00] LABS: Calcium 7.3 mg/dL (8.6-10.3); Potassium 4.8 mEq/L (3.5-5.1)
[2020-11-11 07:06] LABS: Magnesium 1.7 mg/dL (1.6-2.6); Troponin I 0.05 ng/mL (< 0.04)
[2020-11-11] MEDS: Insulin LISPRO 300 UNITS/3 ML VIAL SUBQ SCH ×5 (07:57→21:34)
[2020-11-11] MEDS: Dexamethasone 4 MG/ML VIAL IVP SCH (07:58)
[2020-11-11] MEDS: Thiamine (B-1) 100 MG TABLET PO SCH ×2 (14:47→20:42)
[2020-11-11] MEDS ORDERED: cloNIDine HCL 0.1 MG TABLET PO SCH (15:00)
[2020-11-11] MEDS ORDERED: Perit. Dialysis with Dex 2.5 % 12,000 ML PERITONEAL ONE (19:00)
[2020-11-11] MEDS: cloNIDine HCL 0.1 MG TABLET PO SCH (20:42)
[2020-11-11] MEDS: Gabapentin 300 MG CAPSULE PO SCH (20:42)
[2020-11-11] MEDS ORDERED: Gabapentin 300 MG CAPSULE PO SCH (21:00)
[2020-11-11 23:13] LABS: RBC,Peritoneal Fluid < 2000 RBC/mcL
[2020-11-12] MEDS: *HR* Heparin 5,000 UNIT/ML VIAL SQ SCH ×2 (05:32→18:27)
[2020-11-12] MEDS: Levothyroxine 25 MCG TABLET PO SCH (05:32)
[2020-11-12 06:09] LABS: Basophils % 0.1 %; Hematocrit 27.4 % (37.5-50.1); Hemoglobin 8.7 g/dL (12.9-16.9); Immature Granulocytes % 1.1 % (0-4); Lymphocytes # 0.9 K/mcL (0.6-4.6); Lymphocytes % 9.4 %; Mean Corpuscular HGB Conc 31.8 g/dL (31.6-35.5); Mean Corpuscular Hemoglobin 28.6 pg (28.0-33.3); Mean Corpuscular Volume 90.1 fL (83.0-100.0); Mean Platelet Volume 12.3 fL (9.4-12.4); Monocytes # 0.2 K/mcL (0.0-1.3); Monocytes % 2.2 %; Neutrophils # 8.3 K/mcL (1.6-8.9); Platelet Count 290 K/mcL (140-400); Red Blood Count 3.04 M/mcL (4.19-5.50); Segmented Neutrophils % 87.2 %; White Blood Count 9.5 K/mcL (4.3-11.1)
[2020-11-12 06:26] LABS: Calcium 6.9 mg/dL (8.6-10.3); Potassium 4.4 mEq/L (3.5-5.1)
[2020-11-12 06:37] LABS: Basophils,Peritoneal Fluid 0 %; Eosinophils,Peritoneal Fluid 0 %
[2020-11-12 06:41] LABS: Appearance of Peritoneal Fl CLEAR (Clear)
[2020-11-12] MEDS: cloNIDine HCL 0.1 MG TABLET PO SCH ×3 (07:42→20:57)
[2020-11-12] MEDS: Thiamine (B-1) 100 MG TABLET PO SCH ×3 (07:42→20:56)
[2020-11-12] MEDS: amLODIPine 5 MG TABLET PO SCH (07:42)
[2020-11-12] MEDS: Dexamethasone 4 MG/ML VIAL IVP SCH (07:43)
[2020-11-12] MEDS: Valsartan 160 MG TABLET PO SCH (07:43)
[2020-11-12] MEDS: calcitrioL 0.25 MCG CAPSULE PO SCH (07:43)
[2020-11-12] MEDS: Insulin LISPRO 300 UNITS/3 ML VIAL SUBQ SCH ×5 (07:44→21:04)
[2020-11-12] MEDS ORDERED: 0.9 % Sodium Chloride 500 ML IVC ONE (07:50)
[2020-11-12] MEDS ORDERED: Insulin Human Regular 10 UNIT in 0.9 % Sodium Chloride 10 ML IV ONE (07:50)
[2020-11-12] MEDS ORDERED: Perit. Dialysis with Dex 2.5 % 12,000 ML PERITONEAL ONE (19:00)
[2020-11-12] MEDS: Gabapentin 300 MG CAPSULE PO SCH (20:56)
[2020-11-12] MEDS ORDERED: Insulin DETEMIR 100 UNIT/ML X5UNITS SUBQ SCH (21:00)
[2020-11-13] MEDS: Levothyroxine 25 MCG TABLET PO SCH (05:32)
[2020-11-13] MEDS: *HR* Heparin 5,000 UNIT/ML VIAL SQ SCH (05:32)
[2020-11-13 06:32] VITALS: BP 123/63
[2020-11-13 07:06] LABS: Basophils % 0.1 %; Eosinophils % 0.1 %; Hematocrit 28.4 % (37.5-50.1); Hemoglobin 8.7 g/dL (12.9-16.9); Immature Granulocytes % 0.7 % (0-4); Lymphocytes % 11.9 %; Mean Corpuscular HGB Conc 30.6 g/dL (31.6-35.5); Mean Corpuscular Hemoglobin 27.9 pg (28.0-33.3); Monocytes # 0.1 K/mcL (0.0-1.3); Monocytes % 1.6 %; Neutrophils # 7.4 K/mcL (1.6-8.9); Platelet Count 258 K/mcL (140-400); Red Blood Count 3.12 M/mcL (4.19-5.50); Segmented Neutrophils % 85.6 %; White Blood Count 8.6 K/mcL (4.3-11.1)
[2020-11-13 07:29] LABS: Albumin 1.8 g/dL (3.5-5.7); Albumin/Globulin Ratio 0.5 (1.1-2.2); Bilirubin,Total 0.2 mg/dL (0.3-1.0); Calcium 6.9 mg/dL (8.6-10.3); Globulin 3.6 g/dL (2.4-3.5); Potassium 4.1 mEq/L (3.5-5.1); Total Protein 5.4 g/dL (6.4-8.9)
[2020-11-13] MEDS ORDERED: Gentamicin Oint 15 GM TUBE TP SCH (09:00)
[2020-11-13] MEDS ORDERED: Darbepoetin 100 MCG/0.5 ML SYRINGE SQ SCH (09:00)
[2020-11-13] MEDS: calcitrioL 0.25 MCG CAPSULE PO SCH (09:02)
[2020-11-13] MEDS: amLODIPine 5 MG TABLET PO SCH (09:02)
[2020-11-13] MEDS: Valsartan 160 MG TABLET PO SCH (09:02)
[2020-11-13] MEDS: cloNIDine HCL 0.1 MG TABLET PO SCH (09:02)
[2020-11-13] MEDS: Dexamethasone 4 MG/ML VIAL IVP SCH (09:03)
[2020-11-13] MEDS: Thiamine (B-1) 100 MG TABLET PO SCH (09:03)
[2020-11-13] MEDS: Insulin LISPRO 300 UNITS/3 ML VIAL SUBQ SCH (12:42)
[2020-11-13] MEDS ORDERED: Insulin DETEMIR 100 UNIT/ML X5UNITS SUBQ SCH (21:00)
== END 2020-11-13 14:28 | disposition home health service (06) ==
LOC: 2NENU → SUATTDRO 17:55 → 3BNU 11-12 16:31
PROVIDERS: ADMIT Internal Medicine; ATTEND Family Medicine

== ENCOUNTER 2020-11-15 15:16 | Inpatient (IN) ==
[2020-11-15 15:56] LABS: Hematocrit 29.5 % (37.5-50.1); Hemoglobin 9.3 g/dL (12.9-16.9); Mean Corpuscular HGB Conc 31.5 g/dL (31.6-35.5); Mean Corpuscular Hemoglobin 28.2 pg (28.0-33.3); Mean Corpuscular Volume 89.4 fL (83.0-100.0); Mean Platelet Volume 11.8 fL (9.4-12.4); Monocytes # 0.1 K/mcL (0.0-1.3); Platelet Count 277 K/mcL (140-400); Red Cell Distribution Width 16.2 % (11.5-14.5); White Blood Count 11.9 K/mcL (4.3-11.1)
[2020-11-15 15:59] LABS: INR 1.2; Prothrombin Time 13.4 Seconds (9.4-12.1)
[2020-11-15 16:11] LABS: Albumin 2.1 g/dL (3.5-5.7); Albumin/Globulin Ratio 0.5 (1.1-2.2); Bilirubin,Total 0.2 mg/dL (0.3-1.0); Calcium 7.2 mg/dL (8.6-10.3); Globulin 4.2 g/dL (2.4-3.5); Potassium 4.4 mEq/L (3.5-5.1); Total Protein 6.3 g/dL (6.4-8.9)
[2020-11-15] MEDS ORDERED: Piperacillin/Tazobactam 3.375 GM in 0.9 % Sodium Chloride Mini Bag 100 ML IVPB ONE (16:13)
[2020-11-15] MEDS ORDERED: Clindamycin 900 MG/50 ML 900 MG/50 ML IV.SOLN IVPB ONE (16:13)
[2020-11-15 16:30] LABS: Lymphocytes # 0.7 K/mcL (0.6-4.6); Neutrophils # 11.1 K/mcL (1.6-8.9); Reactive Lymphocytes Present (Not Present)
[2020-11-15 16:31] LABS: Anisocytosis 1+ (Not Present); Large Platelets Present (Not Present); Platelet Estimate Normal (Normal)
[2020-11-15] MEDS ORDERED: Naloxone 0.4 MG/ML INJ IVP PRN (16:45)
[2020-11-15] MEDS ORDERED: Acetaminophen 325 MG TABLET PO PRN (16:53)
[2020-11-15] MEDS ORDERED: Ondansetron 4 MG/2 ML VIAL IVP PRN (16:53)
[2020-11-15] MEDS ORDERED: *HR* OxyCODONE/APAP 5/325 TABLET PO PRN (16:56)
[2020-11-15] MEDS ORDERED: D5% in Water 1,000 ML IVC PRN (17:35)
[2020-11-15] MEDS ORDERED: Dextrose Gel 15 GM/37.5 ML TUBE PO PRN ×2 (17:35)
[2020-11-15] MEDS: Insulin LISPRO 300 UNITS/3 ML VIAL SUBQ SCH ×2 (20:45→20:46)
[2020-11-15] MEDS ORDERED: Perit. Dialysis with Dex 2.5 % 12,000 ML PERITONEAL ONE (20:50)
[2020-11-15] MEDS ORDERED: Insulin DETEMIR 100 UNIT/ML X5UNITS SUBQ SCH (21:00)
[2020-11-16] MEDS: Clindamycin 900 MG/50 ML 900 MG/50 ML IV.SOLN IVPB SCH ×4 (01:11→23:46)
[2020-11-16] MEDS: Piperacillin/Tazobactam 3.375 GM in 0.9 % Sodium Chloride Mini Bag 100 ML IVPB SCH ×2 (05:32→17:18)
[2020-11-16] MEDS: Insulin LISPRO 300 UNITS/3 ML VIAL SUBQ SCH ×4 (06:42→21:02)
[2020-11-16 07:01] LABS: Hematocrit 26.6 % (37.5-50.1); Hemoglobin 8.4 g/dL (12.9-16.9); Mean Corpuscular HGB Conc 31.6 g/dL (31.6-35.5); Mean Corpuscular Hemoglobin 28.2 pg (28.0-33.3); Mean Corpuscular Volume 89.3 fL (83.0-100.0); Mean Platelet Volume 12.4 fL (9.4-12.4); Platelet Count 258 K/mcL (140-400); Red Blood Count 2.98 M/mcL (4.19-5.50); Red Cell Distribution Width 16.4 % (11.5-14.5); White Blood Count 8.3 K/mcL (4.3-11.1)
[2020-11-16 07:24] LABS: Calcium 6.9 mg/dL (8.6-10.3); Magnesium 1.8 mg/dL (1.6-2.6); Potassium 4.1 mEq/L (3.5-5.1)
[2020-11-16] MEDS: calcitrioL 0.25 MCG CAPSULE PO SCH (07:53)
[2020-11-16] MEDS ORDERED: Insulin DETEMIR 100 UNIT/ML X5UNITS SUBQ SCH ×2 (09:00→21:00)
[2020-11-16] MEDS: *HR* Dextrose 50 % in Water (Vial) 50 ML VIAL IVP PRN (11:37)
[2020-11-16] MEDS: *HR* Heparin 5,000 UNIT/ML VIAL SQ SCH ×2 (14:52→21:02)
[2020-11-16] MEDS ORDERED: Perit. Dialysis with Dex 2.5 % 12,000 ML PERITONEAL ONE (19:00)
[2020-11-17] MEDS: Piperacillin/Tazobactam 3.375 GM in 0.9 % Sodium Chloride Mini Bag 100 ML IVPB SCH ×2 (06:09→17:52)
[2020-11-17] MEDS: *HR* Heparin 5,000 UNIT/ML VIAL SQ SCH ×3 (06:09→19:33)
[2020-11-17 06:45] LABS: Calcium 6.9 mg/dL (8.6-10.3); Potassium 3.5 mEq/L (3.5-5.1)
[2020-11-17] MEDS: Insulin LISPRO 300 UNITS/3 ML VIAL SUBQ SCH ×4 (08:06→21:06)
[2020-11-17] MEDS: Clindamycin 900 MG/50 ML 900 MG/50 ML IV.SOLN IVPB SCH ×3 (08:45→23:05)
[2020-11-17] MEDS: calcitrioL 0.25 MCG CAPSULE PO SCH (08:45)
[2020-11-17] MEDS: Insulin DETEMIR 100 UNIT/ML X5UNITS SUBQ SCH (10:00)
[2020-11-17] MEDS: *HR* OxyCODONE Immed Rel 5 MG TABLET PO PRN ×3 (13:14→23:05)
[2020-11-17] MEDS: *HR* Dextrose 50 % in Water (Vial) 50 ML VIAL IVP PRN (18:15)
[2020-11-17] MEDS ORDERED: Perit. Dialysis with Dex 1.5 % 12,000 ML PERITONEAL ONE (19:00)
[2020-11-18 03:17] LABS: Hematocrit 27.3 % (37.5-50.1); Hemoglobin 8.5 g/dL (12.9-16.9); Mean Corpuscular HGB Conc 31.1 g/dL (31.6-35.5); Mean Corpuscular Hemoglobin 28.3 pg (28.0-33.3); Mean Platelet Volume 11.5 fL (9.4-12.4); Platelet Count 305 K/mcL (140-400); Red Cell Distribution Width 16.6 % (11.5-14.5); White Blood Count 7.4 K/mcL (4.3-11.1)
[2020-11-18 03:23] LABS: INR 1.2; Prothrombin Time 13.9 Seconds (9.4-12.1)
[2020-11-18 03:37] LABS: Calcium 6.8 mg/dL (8.6-10.3); Potassium 3.3 mEq/L (3.5-5.1)
[2020-11-18] MEDS: *HR* Heparin 5,000 UNIT/ML VIAL SQ SCH ×3 (05:04→21:33)
[2020-11-18] MEDS: Piperacillin/Tazobactam 3.375 GM in 0.9 % Sodium Chloride Mini Bag 100 ML IVPB SCH ×2 (05:05→19:24)
[2020-11-18] MEDS: Insulin LISPRO 300 UNITS/3 ML VIAL SUBQ SCH ×3 (07:30→21:32)
[2020-11-18] MEDS: *HR* OxyCODONE Immed Rel 5 MG TABLET PO PRN ×3 (08:23→21:32)
[2020-11-18] MEDS: Clindamycin 900 MG/50 ML 900 MG/50 ML IV.SOLN IVPB SCH ×2 (08:28→16:06)
[2020-11-18] MEDS: calcitrioL 0.25 MCG CAPSULE PO SCH (08:28)
[2020-11-18] MEDS: Insulin DETEMIR 100 UNIT/ML X5UNITS SUBQ SCH (10:02)
[2020-11-18] MEDS ORDERED: 0.9 % Sodium Chloride 250 ML ONE (15:58)
[2020-11-18] MEDS: polyethylene glycoL 3350 17 GM POWD.PACK PO SCH (17:33)
[2020-11-18] MEDS ORDERED: Perit. Dialysis with Dex 1.5 % 12,000 ML PERITONEAL ONE (19:00)
[2020-11-19] MEDS: Clindamycin 900 MG/50 ML 900 MG/50 ML IV.SOLN IVPB SCH ×3 (00:45→18:26)
[2020-11-19] MEDS: *HR* Heparin 5,000 UNIT/ML VIAL SQ SCH ×3 (05:53→21:32)
[2020-11-19] MEDS: Piperacillin/Tazobactam 3.375 GM in 0.9 % Sodium Chloride Mini Bag 100 ML IVPB SCH ×2 (06:01→18:25)
[2020-11-19 06:16] LABS: Calcium 6.5 mg/dL (8.6-10.3); Potassium 3.8 mEq/L (3.5-5.1)
[2020-11-19] MEDS: Insulin LISPRO 300 UNITS/3 ML VIAL SUBQ SCH ×4 (07:20→22:26)
[2020-11-19] MEDS: calcitrioL 0.25 MCG CAPSULE PO SCH (08:17)
[2020-11-19] MEDS: polyethylene glycoL 3350 17 GM POWD.PACK PO SCH (08:17)
[2020-11-19] MEDS: *HR* OxyCODONE Immed Rel 5 MG TABLET PO PRN (10:22)
[2020-11-19] MEDS ORDERED: *HR* FentaNYL (PF) 100 MCG/2 ML VIAL ONE ×2 (14:03→14:39)
[2020-11-19] MEDS ORDERED: Ondansetron 4 MG/2 ML VIAL ONE ×2 (14:03→14:39)
[2020-11-19] MEDS ORDERED: *HR* Propofol 200 MG/20 ML VIAL IVP ONE ×3 (14:03→17:36)
[2020-11-19] MEDS ORDERED: Lidocaine -MPF 2% 2 ML VIAL ONE ×2 (14:03→14:39)
[2020-11-19] MEDS ORDERED: Dexamethasone 4 MG/ML VIAL ONE ×2 (14:03→14:39)
[2020-11-19] MEDS ORDERED: *HR* Succinylcholine 200 MG/10 ML VIAL IVP ONE (14:39)
[2020-11-19] MEDS ORDERED: *HR* Midazolam HCl 2 MG/2 ML VIAL ONE (14:39)
[2020-11-19] MEDS ORDERED: Ropivacaine/PF 0.5% 30 ML VIAL ONE (14:45)
[2020-11-19] MEDS ORDERED: *HR* Vasopressin 20 UNIT/ML VIAL ONE (14:45)
[2020-11-19] MEDS ORDERED: ROPIVACAINE/PF/NS 0.25% 1 EACH SYRINGE INTRAART ONE (14:45)
[2020-11-19] MEDS ORDERED: *HR* HYDROMORPHONE 2 MG/ML VIAL ONE (16:22)
[2020-11-19] MEDS ORDERED: *HR* PHENYLEPHRINE 1,000 MCG/10 ML SYRINGE IVP ONE (16:31)
[2020-11-19] MEDS ORDERED: ceFAZolin 1,000 MG, Sodium Chloride IRRigation 1,000 ML IR ONE ×2 (16:40→19:06)
[2020-11-19] MEDS ORDERED: Ondansetron 4 MG/2 ML VIAL IVP PRN ×2 (17:50→19:06)
[2020-11-19] MEDS ORDERED: *HR* HYDROmorphone PF 0.5 MG/0.5 ML SYRINGE IVP PRN ×2 (17:50→19:06)
[2020-11-19] MEDS ORDERED: Perit. Dialysis with Dex 1.5 % 12,000 ML PERITONEAL ONE ×2 (19:00→19:06)
[2020-11-19] MEDS ORDERED: Acetaminophen 325 MG TABLET PO PRN (19:06)
[2020-11-19] MEDS ORDERED: Morphine PCA 30 MG/ 30 ML 30 ML PCA.VIAL IVC PRN (19:06)
[2020-11-19] MEDS ORDERED: *HR* Dextrose 50 % in Water (Vial) 50 ML VIAL IVP PRN (19:06)
[2020-11-19] MEDS ORDERED: *HR* OxyCODONE Immed Rel 5 MG TABLET PO PRN (19:06)
[2020-11-19] MEDS ORDERED: Naloxone 0.4 MG/ML INJ IVP PRN (19:06)
[2020-11-19] MEDS ORDERED: Dextrose Gel 15 GM/37.5 ML TUBE PO PRN ×2 (19:06)
[2020-11-19] MEDS ORDERED: D5% in Water 1,000 ML IVC PRN (19:06)
[2020-11-19] MEDS ORDERED: 0.9 % Sodium Chloride 500 ML ONE (23:40)
[2020-11-20] MEDS: Clindamycin 900 MG/50 ML 900 MG/50 ML IV.SOLN IVPB SCH ×2 (00:42→07:54)
[2020-11-20] MEDS: *HR* Heparin 5,000 UNIT/ML VIAL SQ SCH ×3 (06:08→20:51)
[2020-11-20] MEDS: Piperacillin/Tazobactam 3.375 GM in 0.9 % Sodium Chloride Mini Bag 100 ML IVPB SCH ×2 (06:10→17:03)
[2020-11-20 06:45] LABS: Hematocrit 29.3 % (37.5-50.1); Hemoglobin 8.3 g/dL (12.9-16.9); Mean Corpuscular HGB Conc 28.3 g/dL (31.6-35.5); Mean Corpuscular Hemoglobin 28.4 pg (28.0-33.3); Mean Corpuscular Volume 100.3 fL (83.0-100.0); Mean Platelet Volume 11.6 fL (9.4-12.4); Platelet Count 213 K/mcL (140-400); Red Blood Count 2.92 M/mcL (4.19-5.50); Red Cell Distribution Width 17.6 % (11.5-14.5); White Blood Count 8.8 K/mcL (4.3-11.1)
[2020-11-20] MEDS: polyethylene glycoL 3350 17 GM POWD.PACK PO SCH (07:54)
[2020-11-20] MEDS: calcitrioL 0.25 MCG CAPSULE PO SCH (07:54)
[2020-11-20] MEDS: Insulin LISPRO 300 UNITS/3 ML VIAL SUBQ SCH ×4 (07:55→20:52)
[2020-11-20 08:36] LABS: Calcium 6.3 mg/dL (8.6-10.3); Potassium 4.5 mEq/L (3.5-5.1)
[2020-11-20] MEDS: cloNIDine HCL 0.1 MG TABLET PO SCH ×2 (14:33→20:50)
[2020-11-20] MEDS ORDERED: Perit. Dialysis with Dex 1.5 % 12,000 ML PERITONEAL ONE (19:00)
[2020-11-21] MEDS: Piperacillin/Tazobactam 3.375 GM in 0.9 % Sodium Chloride Mini Bag 100 ML IVPB SCH (05:03)
[2020-11-21] MEDS: *HR* Heparin 5,000 UNIT/ML VIAL SQ SCH ×3 (05:04→22:07)
[2020-11-21] MEDS: calcitrioL 0.25 MCG CAPSULE PO SCH (08:09)
[2020-11-21] MEDS: cloNIDine HCL 0.1 MG TABLET PO SCH ×3 (08:09→19:50)
[2020-11-21] MEDS: polyethylene glycoL 3350 17 GM POWD.PACK PO SCH (08:11)
[2020-11-21 08:13] LABS: Potassium 3.5 mEq/L (3.5-5.1)
[2020-11-21] MEDS: Insulin LISPRO 300 UNITS/3 ML VIAL SUBQ SCH ×4 (08:23→20:36)
[2020-11-21] MEDS: Calcium Gluconate 1gm/50mL 1 GM/50 ML BAG IVPB SCH ×2 (10:06→11:06)
[2020-11-21 11:05] LABS: Hepatitis B Surface Antibody < 3.10 mIU/mL
[2020-11-21 11:15] LABS: Hepatitis B Surface Antigen Nonreactive (Nonreactive)
[2020-11-21] MEDS ORDERED: Naloxone 0.4 MG/ML INJ IVP PRN (11:44)
[2020-11-21 11:48] LABS: Hematocrit 20.7 % (37.5-50.1); Hemoglobin 6.5 g/dL (12.9-16.9); Mean Corpuscular HGB Conc 31.4 g/dL (31.6-35.5); Mean Corpuscular Hemoglobin 28.9 pg (28.0-33.3); Mean Platelet Volume 10.8 fL (9.4-12.4); Platelet Count 257 K/mcL (140-400); Red Blood Count 2.25 M/mcL (4.19-5.50); Red Cell Distribution Width 17.6 % (11.5-14.5); White Blood Count 8.8 K/mcL (4.3-11.1)
[2020-11-21] MEDS: Calcium Acetate 667 MG CAPSULE PO SCH ×2 (12:34→16:13)
[2020-11-21] MEDS ORDERED: amLODIPine 5 MG TABLET PO SCH (14:15)
[2020-11-21] MEDS: Ergocalciferol (VIT D2) 50,000 UNIT (1.25MG) CAP PO SCH (14:59)
[2020-11-21] MEDS: NIFEdipine XL (24 HR) 30 MG TAB.ER.24 PO SCH (17:21)
[2020-11-21] MEDS ORDERED: Perit. Dialysis with Dex 1.5 % 12,000 ML PERITONEAL ONE (19:00)
[2020-11-21] MEDS: Insulin DETEMIR 100 UNIT/ML X5UNITS SUBQ SCH (20:36)
[2020-11-21] MEDS ORDERED: 0.9 % Sodium Chloride 500 ML ONE ×2 (21:11→21:58)
[2020-11-22] MEDS: Levothyroxine 25 MCG TABLET PO SCH (05:37)
[2020-11-22] MEDS: *HR* Heparin 5,000 UNIT/ML VIAL SQ SCH ×3 (05:37→21:09)
[2020-11-22 07:31] LABS: Hematocrit 28.8 % (37.5-50.1); Mean Corpuscular HGB Conc 31.6 g/dL (31.6-35.5); Mean Corpuscular Hemoglobin 28.5 pg (28.0-33.3); Mean Corpuscular Volume 90.3 fL (83.0-100.0); Mean Platelet Volume 10.9 fL (9.4-12.4); Platelet Count 219 K/mcL (140-400); Red Blood Count 3.19 M/mcL (4.19-5.50); Red Cell Distribution Width 16.5 % (11.5-14.5); White Blood Count 7.1 K/mcL (4.3-11.1)
[2020-11-22 07:47] LABS: Hemoglobin 9.1 g/dL (12.9-16.9)
[2020-11-22 07:53] LABS: Calcium 6.6 mg/dL (8.6-10.3); Potassium 3.6 mEq/L (3.5-5.1)
[2020-11-22] MEDS: calcitrioL 0.25 MCG CAPSULE PO SCH (08:20)
[2020-11-22] MEDS: NIFEdipine XL (24 HR) 30 MG TAB.ER.24 PO SCH (08:20)
[2020-11-22] MEDS: Calcium Acetate 667 MG CAPSULE PO SCH ×3 (08:20→17:15)
[2020-11-22] MEDS: cloNIDine HCL 0.1 MG TABLET PO SCH ×3 (08:21→21:09)
[2020-11-22] MEDS: Insulin LISPRO 300 UNITS/3 ML VIAL SUBQ SCH ×4 (08:22→22:04)
[2020-11-22] MEDS: polyethylene glycoL 3350 17 GM POWD.PACK PO SCH (08:23)
[2020-11-22] MEDS: *HR* OxyCODONE Immed Rel 5 MG TABLET PO PRN (12:21)
[2020-11-22] MEDS ORDERED: Perit. Dialysis with Dex 1.5 % 12,000 ML PERITONEAL ONE (19:00)
[2020-11-22] MEDS: Insulin DETEMIR 100 UNIT/ML X5UNITS SUBQ SCH (21:09)
[2020-11-23 01:34] LABS: Hematocrit 29.1 % (37.5-50.1); Mean Corpuscular HGB Conc 30.9 g/dL (31.6-35.5); Mean Corpuscular Hemoglobin 27.5 pg (28.0-33.3); Mean Platelet Volume 10.5 fL (9.4-12.4); Platelet Count 231 K/mcL (140-400); Red Blood Count 3.27 M/mcL (4.19-5.50); Red Cell Distribution Width 16.5 % (11.5-14.5); White Blood Count 8.3 K/mcL (4.3-11.1)
[2020-11-23 01:52] LABS: Potassium 3.8 mEq/L (3.5-5.1)
[2020-11-23] MEDS: *HR* Heparin 5,000 UNIT/ML VIAL SQ SCH ×3 (05:31→20:35)
[2020-11-23] MEDS: Levothyroxine 25 MCG TABLET PO SCH (05:32)
[2020-11-23] MEDS: *HR* HYDROcodone/Acet 5/325 mg TABLET PO PRN ×2 (05:34→20:35)
[2020-11-23] MEDS: Insulin LISPRO 300 UNITS/3 ML VIAL SUBQ SCH ×3 (09:58→22:12)
[2020-11-23] MEDS: polyethylene glycoL 3350 17 GM POWD.PACK PO SCH (09:59)
[2020-11-23] MEDS: NIFEdipine XL (24 HR) 30 MG TAB.ER.24 PO SCH (09:59)
[2020-11-23] MEDS: calcitrioL 0.25 MCG CAPSULE PO SCH (09:59)
[2020-11-23] MEDS: cloNIDine HCL 0.1 MG TABLET PO SCH ×4 (09:59→20:36)
[2020-11-23] MEDS: Calcium Acetate 667 MG CAPSULE PO SCH ×3 (10:01→18:26)
[2020-11-23] MEDS ORDERED: Perit. Dialysis with Dex 1.5 % 12,000 ML PERITONEAL ONE (19:00)
[2020-11-23] MEDS: Insulin DETEMIR 100 UNIT/ML X5UNITS SUBQ SCH (20:36)
[2020-11-23] MEDS: *HR* OxyCODONE Immed Rel 5 MG TABLET PO PRN (22:17)
[2020-11-24] MEDS: *HR* OxyCODONE Immed Rel 5 MG TABLET PO PRN ×2 (04:15→10:01)
[2020-11-24] MEDS: Levothyroxine 25 MCG TABLET PO SCH (05:41)
[2020-11-24] MEDS: *HR* Heparin 5,000 UNIT/ML VIAL SQ SCH ×3 (05:41→19:51)
[2020-11-24] MEDS: *HR* HYDROcodone/Acet 5/325 mg TABLET PO PRN ×3 (05:45→20:19)
[2020-11-24 07:20] LABS: Hematocrit 30.7 % (37.5-50.1); Hemoglobin 9.5 g/dL (12.9-16.9); Mean Corpuscular HGB Conc 30.9 g/dL (31.6-35.5); Mean Corpuscular Hemoglobin 27.9 pg (28.0-33.3); Mean Platelet Volume 10.5 fL (9.4-12.4); Platelet Count 252 K/mcL (140-400); Red Blood Count 3.41 M/mcL (4.19-5.50); Red Cell Distribution Width 16.3 % (11.5-14.5); White Blood Count 7.9 K/mcL (4.3-11.1)
[2020-11-24 07:40] LABS: Calcium 7.5 mg/dL (8.6-10.3)
[2020-11-24] MEDS: Insulin LISPRO 300 UNITS/3 ML VIAL SUBQ SCH ×4 (09:03→19:59)
[2020-11-24] MEDS: polyethylene glycoL 3350 17 GM POWD.PACK PO SCH ×2 (10:00→10:38)
[2020-11-24] MEDS: NIFEdipine XL (24 HR) 30 MG TAB.ER.24 PO SCH (10:00)
[2020-11-24] MEDS: calcitrioL 0.25 MCG CAPSULE PO SCH (10:01)
[2020-11-24] MEDS: Calcium Acetate 667 MG CAPSULE PO SCH ×3 (10:02→17:29)
[2020-11-24] MEDS: cloNIDine HCL 0.1 MG TABLET PO SCH ×3 (10:02→19:48)
[2020-11-24] MEDS: Insulin DETEMIR 100 UNIT/ML X5UNITS SUBQ SCH (19:50)
[2020-11-24] MEDS ORDERED: Perit. Dialysis with Dex 1.5 % 12,000 ML PERITONEAL ONE (20:00)
[2020-11-25] MEDS: *HR* Heparin 5,000 UNIT/ML VIAL SQ SCH ×3 (03:13→20:55)
[2020-11-25] MEDS: Levothyroxine 25 MCG TABLET PO SCH (03:14)
[2020-11-25 03:53] LABS: Calcium 7.4 mg/dL (8.6-10.3)
[2020-11-25] MEDS: NIFEdipine XL (24 HR) 30 MG TAB.ER.24 PO SCH (08:58)
[2020-11-25] MEDS: cloNIDine HCL 0.1 MG TABLET PO SCH ×3 (08:58→20:55)
[2020-11-25] MEDS: Calcium Acetate 667 MG CAPSULE PO SCH ×3 (08:59→18:57)
[2020-11-25] MEDS: calcitrioL 0.25 MCG CAPSULE PO SCH (08:59)
[2020-11-25] MEDS: Insulin LISPRO 300 UNITS/3 ML VIAL SUBQ SCH ×4 (08:59→20:51)
[2020-11-25] MEDS: polyethylene glycoL 3350 17 GM POWD.PACK PO SCH (08:59)
[2020-11-25] MEDS: *HR* OxyCODONE Immed Rel 5 MG TABLET PO PRN ×2 (09:14→20:56)
[2020-11-25] MEDS: *HR* HYDROcodone/Acet 5/325 mg TABLET PO PRN (13:49)
[2020-11-25] MEDS ORDERED: Perit. Dialysis with Dex 1.5 % 12,000 ML PERITONEAL ONE (19:00)
[2020-11-25] MEDS: Ondansetron 4 MG/2 ML VIAL IVP PRN (20:01)
[2020-11-26] MEDS: *HR* Heparin 5,000 UNIT/ML VIAL SQ SCH ×3 (05:42→20:45)
[2020-11-26] MEDS: Levothyroxine 25 MCG TABLET PO SCH (05:42)
[2020-11-26] MEDS: *HR* HYDROcodone/Acet 5/325 mg TABLET PO PRN ×2 (05:54→12:07)
[2020-11-26] MEDS: Insulin LISPRO 300 UNITS/3 ML VIAL SUBQ SCH ×5 (07:27→21:33)
[2020-11-26] MEDS: NIFEdipine XL (24 HR) 30 MG TAB.ER.24 PO SCH (08:13)
[2020-11-26] MEDS: Calcium Acetate 667 MG CAPSULE PO SCH ×3 (08:13→16:04)
[2020-11-26] MEDS: cloNIDine HCL 0.1 MG TABLET PO SCH ×3 (08:14→20:44)
[2020-11-26] MEDS: polyethylene glycoL 3350 17 GM POWD.PACK PO SCH (08:14)
[2020-11-26] MEDS: *HR* OxyCODONE Immed Rel 5 MG TABLET PO PRN ×2 (08:14→21:33)
[2020-11-26] MEDS: calcitrioL 0.25 MCG CAPSULE PO SCH (08:14)
[2020-11-26 09:09] LABS: Hematocrit 29.6 % (37.5-50.1); Hemoglobin 9.2 g/dL (12.9-16.9); Mean Corpuscular HGB Conc 31.1 g/dL (31.6-35.5); Mean Corpuscular Hemoglobin 28.8 pg (28.0-33.3); Mean Corpuscular Volume 92.8 fL (83.0-100.0); Mean Platelet Volume 10.5 fL (9.4-12.4); Platelet Count 243 K/mcL (140-400); Red Blood Count 3.19 M/mcL (4.19-5.50); Red Cell Distribution Width 16.2 % (11.5-14.5); White Blood Count 6.8 K/mcL (4.3-11.1)
[2020-11-26 09:23] LABS: Calcium 7.3 mg/dL (8.6-10.3); Potassium 4.3 mEq/L (3.5-5.1)
[2020-11-26] MEDS ORDERED: Perit. Dialysis with Dex 1.5 % 12,000 ML PERITONEAL ONE (19:00)
[2020-11-27] MEDS: *HR* OxyCODONE Immed Rel 5 MG TABLET PO PRN (03:33)
[2020-11-27 04:05] LABS: Basophils # 0.1 K/mcL (0.0-0.2); Basophils % 0.9 %; Eosinophils # 0.1 K/mcL (0.0-0.6); Eosinophils % 0.7 %; Hematocrit 27.2 % (37.5-50.1); Hemoglobin 8.6 g/dL (12.9-16.9); Immature Granulocytes % 0.3 % (0-4); Lymphocytes # 0.8 K/mcL (0.6-4.6); Lymphocytes % 12.3 %; Mean Corpuscular HGB Conc 31.6 g/dL (31.6-35.5); Mean Corpuscular Hemoglobin 29.3 pg (28.0-33.3); Mean Corpuscular Volume 92.5 fL (83.0-100.0); Mean Platelet Volume 10.5 fL (9.4-12.4); Monocytes # 0.5 K/mcL (0.0-1.3); Neutrophils # 5.3 K/mcL (1.6-8.9); Platelet Count 253 K/mcL (140-400); Red Blood Count 2.94 M/mcL (4.19-5.50); Red Cell Distribution Width 16.2 % (11.5-14.5); Segmented Neutrophils % 77.8 %; White Blood Count 6.8 K/mcL (4.3-11.1)
[2020-11-27 04:21] LABS: Albumin 1.8 g/dL (3.5-5.7); Albumin/Globulin Ratio 0.5 (1.1-2.2); Bilirubin,Total 0.2 mg/dL (0.3-1.0); Calcium 7.2 mg/dL (8.6-10.3); Globulin 3.7 g/dL (2.4-3.5); Potassium 4.4 mEq/L (3.5-5.1); Total Protein 5.5 g/dL (6.4-8.9)
[2020-11-27] MEDS: *HR* Heparin 5,000 UNIT/ML VIAL SQ SCH ×3 (06:14→21:56)
[2020-11-27] MEDS: Levothyroxine 25 MCG TABLET PO SCH (06:14)
[2020-11-27] MEDS: Calcium Acetate 667 MG CAPSULE PO SCH ×3 (08:20→16:19)
[2020-11-27] MEDS: cloNIDine HCL 0.1 MG TABLET PO SCH ×3 (08:20→21:55)
[2020-11-27] MEDS: NIFEdipine XL (24 HR) 30 MG TAB.ER.24 PO SCH (08:21)
[2020-11-27] MEDS: calcitrioL 0.25 MCG CAPSULE PO SCH (08:21)
[2020-11-27] MEDS: polyethylene glycoL 3350 17 GM POWD.PACK PO SCH (08:21)
[2020-11-27] MEDS: *HR* HYDROcodone/Acet 5/325 mg TABLET PO PRN ×2 (08:21→16:19)
[2020-11-27] MEDS: Insulin LISPRO 300 UNITS/3 ML VIAL SUBQ SCH ×4 (08:22→21:56)
[2020-11-27] MEDS: Ondansetron 4 MG/2 ML VIAL IVP PRN (10:30)
[2020-11-27] MEDS ORDERED: Perit. Dialysis with Dex 1.5 % 12,000 ML PERITONEAL ONE (19:00)
[2020-11-27] MEDS: Insulin DETEMIR 100 UNIT/ML X5UNITS SUBQ SCH (21:58)
[2020-11-28 02:48] LABS: Basophils # 0.1 K/mcL (0.0-0.2); Basophils % 1.3 %; Eosinophils # 0.1 K/mcL (0.0-0.6); Eosinophils % 1.4 %; Hematocrit 27.1 % (37.5-50.1); Hemoglobin 8.2 g/dL (12.9-16.9); Immature Granulocytes % 0.3 % (0-4); Lymphocytes % 16.3 %; Mean Corpuscular HGB Conc 30.3 g/dL (31.6-35.5); Mean Corpuscular Hemoglobin 27.9 pg (28.0-33.3); Mean Corpuscular Volume 92.2 fL (83.0-100.0); Mean Platelet Volume 9.9 fL (9.4-12.4); Monocytes # 0.6 K/mcL (0.0-1.3); Monocytes % 9.9 %; Neutrophils # 4.4 K/mcL (1.6-8.9); Platelet Count 244 K/mcL (140-400); Red Blood Count 2.94 M/mcL (4.19-5.50); Segmented Neutrophils % 70.8 %; White Blood Count 6.2 K/mcL (4.3-11.1)
[2020-11-28 03:06] LABS: Calcium 7.2 mg/dL (8.6-10.3); Phosphorous 4.8 mg/dL (2.7-4.5); Potassium 4.4 mEq/L (3.5-5.1)
[2020-11-28] MEDS: *HR* Heparin 5,000 UNIT/ML VIAL SQ SCH ×3 (05:35→20:25)
[2020-11-28] MEDS: Levothyroxine 25 MCG TABLET PO SCH (05:36)
[2020-11-28] MEDS: Insulin LISPRO 300 UNITS/3 ML VIAL SUBQ SCH ×4 (08:38→20:18)
[2020-11-28] MEDS: calcitrioL 0.25 MCG CAPSULE PO SCH (08:43)
[2020-11-28] MEDS: NIFEdipine XL (24 HR) 30 MG TAB.ER.24 PO SCH (08:43)
[2020-11-28] MEDS: polyethylene glycoL 3350 17 GM POWD.PACK PO SCH (08:43)
[2020-11-28] MEDS: cloNIDine HCL 0.1 MG TABLET PO SCH ×3 (08:44→20:25)
[2020-11-28] MEDS: Calcium Acetate 667 MG CAPSULE PO SCH ×3 (08:44→17:29)
[2020-11-28] MEDS: *HR* OxyCODONE Immed Rel 5 MG TABLET PO PRN (08:44)
[2020-11-28] MEDS: *HR* HYDROcodone/Acet 5/325 mg TABLET PO PRN (12:32)
[2020-11-28] MEDS: Ergocalciferol (VIT D2) 50,000 UNIT (1.25MG) CAP PO SCH (17:29)
[2020-11-28] MEDS ORDERED: Perit. Dialysis with Dex 1.5 % 12,000 ML PERITONEAL ONE (19:00)
[2020-11-28] MEDS: Insulin DETEMIR 100 UNIT/ML X5UNITS SUBQ SCH (20:18)
[2020-11-29] MEDS ORDERED: *HR* Labetalol 20 MG/4 ML SYRINGE IVP ONE (03:11)
[2020-11-29 03:16] LABS: Basophils # 0.1 K/mcL (0.0-0.2); Basophils % 1.4 %; Eosinophils # 0.1 K/mcL (0.0-0.6); Eosinophils % 1.1 %; Hematocrit 27.9 % (37.5-50.1); Hemoglobin 8.6 g/dL (12.9-16.9); Immature Granulocytes % 0.5 % (0-4); Lymphocytes # 0.9 K/mcL (0.6-4.6); Lymphocytes % 13.8 %; Mean Corpuscular HGB Conc 30.8 g/dL (31.6-35.5); Mean Corpuscular Hemoglobin 28.3 pg (28.0-33.3); Mean Corpuscular Volume 91.8 fL (83.0-100.0); Mean Platelet Volume 10.4 fL (9.4-12.4); Monocytes # 0.6 K/mcL (0.0-1.3); Monocytes % 8.4 %; Neutrophils # 4.9 K/mcL (1.6-8.9); Platelet Count 267 K/mcL (140-400); Red Blood Count 3.04 M/mcL (4.19-5.50); Red Cell Distribution Width 16.1 % (11.5-14.5); Segmented Neutrophils % 74.8 %; White Blood Count 6.5 K/mcL (4.3-11.1)
[2020-11-29 03:37] LABS: Calcium 7.3 mg/dL (8.6-10.3); Magnesium 1.8 mg/dL (1.6-2.6); Phosphorous 3.9 mg/dL (2.7-4.5); Potassium 4.9 mEq/L (3.5-5.1)
[2020-11-29] MEDS: Levothyroxine 25 MCG TABLET PO SCH (05:05)
[2020-11-29] MEDS: *HR* Heparin 5,000 UNIT/ML VIAL SQ SCH ×3 (05:05→20:23)
[2020-11-29] MEDS: Insulin LISPRO 300 UNITS/3 ML VIAL SUBQ SCH ×4 (08:46→20:22)
[2020-11-29] MEDS: Calcium Acetate 667 MG CAPSULE PO SCH ×3 (08:46→16:30)
[2020-11-29] MEDS: polyethylene glycoL 3350 17 GM POWD.PACK PO SCH (08:47)
[2020-11-29] MEDS: calcitrioL 0.25 MCG CAPSULE PO SCH (09:03)
[2020-11-29] MEDS: NIFEdipine XL (24 HR) 30 MG TAB.ER.24 PO SCH (09:03)
[2020-11-29] MEDS: cloNIDine HCL 0.1 MG TABLET PO SCH ×3 (09:03→20:21)
[2020-11-29] MEDS: *HR* HYDROcodone/Acet 5/325 mg TABLET PO PRN (09:10)
[2020-11-29] MEDS ORDERED: *HR* Midazolam HCl 2 MG/2 ML VIAL IVP ONE (11:51)
[2020-11-29] MEDS ORDERED: *HR* FentaNYL (PF) 100 MCG/2 ML VIAL IVP ONE (11:51)
[2020-11-29] MEDS ORDERED: CeFAZolin 2,000 MG/50 ML BAG IVPB ONE (11:51)
[2020-11-29] MEDS ORDERED: Heparin 1,000 UNITS/500 mL 500 ML ONE (11:55)
[2020-11-29] MEDS ORDERED: Lidocaine/EPI 1:100k 1% 50 ML VIAL ONE (11:55)
[2020-11-29] MEDS ORDERED: *HR* FentaNYL (PF) 100 MCG/2 ML VIAL ONE (12:04)
[2020-11-29] MEDS ORDERED: *HR* Heparin 5,000 UNIT/ML VIAL ONE (12:04)
[2020-11-29] MEDS ORDERED: *HR* Midazolam HCl 2 MG/2 ML VIAL ONE (12:05)
[2020-11-29] MEDS: Insulin DETEMIR 100 UNIT/ML X5UNITS SUBQ SCH (20:22)
[2020-11-29] MEDS: *HR* OxyCODONE Immed Rel 5 MG TABLET PO PRN (20:32)
[2020-11-30] MEDS: *HR* OxyCODONE Immed Rel 5 MG TABLET PO PRN ×3 (04:09→22:55)
[2020-11-30] MEDS: *HR* Heparin 5,000 UNIT/ML VIAL SQ SCH ×3 (05:37→20:35)
[2020-11-30] MEDS: Levothyroxine 25 MCG TABLET PO SCH (05:37)
[2020-11-30] MEDS ORDERED: 0.9 % Sodium Chloride 1,000 ML PRIME SCH (07:15)
[2020-11-30] MEDS ORDERED: 0.9 % Sodium Chloride 250 ML IVC PRN (07:15)
[2020-11-30] MEDS ORDERED: *HR* Heparin 10,000 UNIT/10 ML VIAL IV PRN (08:06)
[2020-11-30] MEDS: Calcium Acetate 667 MG CAPSULE PO SCH ×3 (08:41→16:19)
[2020-11-30] MEDS: calcitrioL 0.25 MCG CAPSULE PO SCH (08:41)
[2020-11-30] MEDS: NIFEdipine XL (24 HR) 30 MG TAB.ER.24 PO SCH (08:41)
[2020-11-30] MEDS: polyethylene glycoL 3350 17 GM POWD.PACK PO SCH (08:41)
[2020-11-30] MEDS: cloNIDine HCL 0.1 MG TABLET PO SCH ×3 (08:42→20:33)
[2020-11-30] MEDS: Insulin LISPRO 300 UNITS/3 ML VIAL SUBQ SCH ×5 (08:53→20:34)
[2020-11-30] MEDS: Insulin DETEMIR 100 UNIT/ML X5UNITS SUBQ SCH ×2 (11:52→20:34)
[2020-11-30] MEDS: Valsartan 160 MG TABLET PO SCH (11:53)
[2020-11-30] MEDS: *HR* HYDROcodone/Acet 5/325 mg TABLET PO PRN (11:54)
[2020-12-01] MEDS: Levothyroxine 25 MCG TABLET PO SCH (06:09)
[2020-12-01] MEDS: *HR* Heparin 5,000 UNIT/ML VIAL SQ SCH ×3 (06:09→19:30)
[2020-12-01] MEDS: Insulin LISPRO 300 UNITS/3 ML VIAL SUBQ SCH ×5 (07:30→21:45)
[2020-12-01] MEDS: cloNIDine HCL 0.1 MG TABLET PO SCH ×3 (08:39→19:29)
[2020-12-01] MEDS: Valsartan 160 MG TABLET PO SCH (08:39)
[2020-12-01] MEDS: hydrALAZINE 25 MG TABLET PO SCH ×3 (08:39→23:48)
[2020-12-01] MEDS: Calcium Acetate 667 MG CAPSULE PO SCH ×3 (08:39→19:19)
[2020-12-01] MEDS: calcitrioL 0.25 MCG CAPSULE PO SCH (08:39)
[2020-12-01] MEDS: NIFEdipine XL (24 HR) 60 MG TAB.ER.24 PO SCH (08:40)
[2020-12-01] MEDS: polyethylene glycoL 3350 17 GM POWD.PACK PO SCH ×2 (08:40→11:32)
[2020-12-01] MEDS: *HR* HYDROcodone/Acet 5/325 mg TABLET PO PRN ×2 (16:06→21:45)
[2020-12-02 00:33] LABS: Basophils # 0.1 K/mcL (0.0-0.2); Basophils % 1.6 %; Eosinophils # 0.1 K/mcL (0.0-0.6); Eosinophils % 1.6 %; Hematocrit 25.7 % (37.5-50.1); Hemoglobin 7.8 g/dL (12.9-16.9); Immature Granulocytes % 0.3 % (0-4); Lymphocytes # 1.2 K/mcL (0.6-4.6); Lymphocytes % 20.7 %; Mean Corpuscular HGB Conc 30.4 g/dL (31.6-35.5); Mean Corpuscular Hemoglobin 28.8 pg (28.0-33.3); Mean Corpuscular Volume 94.8 fL (83.0-100.0); Mean Platelet Volume 10.3 fL (9.4-12.4); Monocytes # 0.6 K/mcL (0.0-1.3); Monocytes % 10.6 %; Neutrophils # 3.7 K/mcL (1.6-8.9); Platelet Count 263 K/mcL (140-400); Red Blood Count 2.71 M/mcL (4.19-5.50); Red Cell Distribution Width 16.2 % (11.5-14.5); Segmented Neutrophils % 65.2 %; White Blood Count 5.7 K/mcL (4.3-11.1)
[2020-12-02 00:48] LABS: Calcium 7.4 mg/dL (8.6-10.3); Magnesium 2.1 mg/dL (1.6-2.6); Phosphorous 3.9 mg/dL (2.7-4.5); Potassium 5.8 mEq/L (3.5-5.1)
[2020-12-02] MEDS: *HR* Heparin 5,000 UNIT/ML VIAL SQ SCH ×3 (04:16→21:08)
[2020-12-02] MEDS: Levothyroxine 25 MCG TABLET PO SCH (04:17)
[2020-12-02] MEDS ORDERED: 0.9 % Sodium Chloride 250 ML IVC PRN (07:54)
[2020-12-02] MEDS: Valsartan 160 MG TABLET PO SCH (09:18)
[2020-12-02] MEDS: NIFEdipine XL (24 HR) 60 MG TAB.ER.24 PO SCH (09:19)
[2020-12-02] MEDS: hydrALAZINE 25 MG TABLET PO SCH ×2 (09:19→18:15)
[2020-12-02] MEDS: Insulin LISPRO 300 UNITS/3 ML VIAL SUBQ SCH ×3 (09:19→18:16)
[2020-12-02] MEDS: calcitrioL 0.25 MCG CAPSULE PO SCH (09:19)
[2020-12-02] MEDS: Calcium Acetate 667 MG CAPSULE PO SCH ×3 (09:19→18:16)
[2020-12-02] MEDS: polyethylene glycoL 3350 17 GM POWD.PACK PO SCH (09:20)
[2020-12-02] MEDS: cloNIDine HCL 0.1 MG TABLET PO SCH ×3 (09:23→21:07)
[2020-12-02] MEDS: *HR* HYDROcodone/Acet 5/325 mg TABLET PO PRN ×2 (09:33→18:15)
[2020-12-02] MEDS: *HR* OxyCODONE Immed Rel 5 MG TABLET PO PRN (12:38)
[2020-12-02] MEDS: Ondansetron 4 MG/2 ML VIAL IVP PRN (18:51)
[2020-12-03] MEDS: hydrALAZINE 25 MG TABLET PO SCH ×3 (00:23→09:23)
[2020-12-03] MEDS: *HR* Heparin 5,000 UNIT/ML VIAL SQ SCH ×2 (05:04→14:42)
[2020-12-03] MEDS: Levothyroxine 25 MCG TABLET PO SCH (05:04)
[2020-12-03] MEDS: *HR* HYDROcodone/Acet 5/325 mg TABLET PO PRN (05:04)
[2020-12-03 06:54] LABS: Hematocrit 28.8 % (37.5-50.1); Hemoglobin 8.6 g/dL (12.9-16.9)
[2020-12-03 07:14] LABS: Calcium 7.7 mg/dL (8.6-10.3); Magnesium 1.9 mg/dL (1.6-2.6); Phosphorous 3.1 mg/dL (2.7-4.5); Potassium 5.3 mEq/L (3.5-5.1)
[2020-12-03] MEDS: Insulin LISPRO 300 UNITS/3 ML VIAL SUBQ SCH ×4 (09:10→16:34)
[2020-12-03] MEDS: NIFEdipine XL (24 HR) 60 MG TAB.ER.24 PO SCH (09:22)
[2020-12-03] MEDS: Calcium Acetate 667 MG CAPSULE PO SCH ×3 (09:22→16:34)
[2020-12-03] MEDS: polyethylene glycoL 3350 17 GM POWD.PACK PO SCH (09:23)
[2020-12-03] MEDS: cloNIDine HCL 0.1 MG TABLET PO SCH ×2 (09:23→14:42)
[2020-12-03] MEDS: calcitrioL 0.25 MCG CAPSULE PO SCH (09:23)
[2020-12-03] MEDS: Valsartan 160 MG TABLET PO SCH (09:23)
[2020-12-03 15:24] VITALS: BP 154/72
[2020-12-03] MEDS ORDERED: hydrALAZINE 25 MG TABLET PO SCH (16:00)
== END 2020-12-03 18:30 | DRG 239 ==
LOC: EMEROOARM 15:16 → 2NENU 15:16 → SUATTDRO 19:05 → 2NENU 11-19 18:39
PROVIDERS: ADMIT Internal Medicine; ATTEND Internal Medicine
PROC: IRPERMA (2020-11-29 11:00)

== ENCOUNTER 2021-05-05 13:30 | Inpatient (IN) ==
[2021-05-05 14:57] LABS: Basophils # 0.1 K/mcL (0.0-0.2); Basophils % 0.4 %; Eosinophils % 0.3 %; Hematocrit 28.5 % (37.5-50.1); Hemoglobin 8.9 g/dL (12.9-16.9); Immature Granulocytes % 0.4 % (0-4); Lymphocytes # 0.6 K/mcL (0.6-4.6); Lymphocytes % 4.4 %; Mean Corpuscular HGB Conc 31.2 g/dL (31.6-35.5); Mean Corpuscular Hemoglobin 27.7 pg (28.0-33.3); Mean Corpuscular Volume 88.8 fL (83.0-100.0); Monocytes # 0.6 K/mcL (0.0-1.3); Monocytes % 4.3 %; Neutrophils # 13.1 K/mcL (1.6-8.9); Platelet Count 456 K/mcL (140-400); Red Blood Count 3.21 M/mcL (4.19-5.50); Red Cell Distribution Width 16.1 % (11.5-14.5); Segmented Neutrophils % 90.2 %; White Blood Count 14.5 K/mcL (4.3-11.1)
[2021-05-05 15:17] LABS: Calcium 6.8 mg/dL (8.6-10.3); Potassium 6.3 mEq/L (3.5-5.1)
[2021-05-05] MEDS: SODIUM ZIRCONIUM CYCLOSILICATE 5 GM POWD.PACK PO SCH (17:08)
[2021-05-05] MEDS ORDERED: Naloxone 0.4 MG/ML INJ IVP PRN (17:14)
[2021-05-05] MEDS ORDERED: Ondansetron 4 MG/2 ML VIAL IVP PRN (17:14)
[2021-05-05] MEDS ORDERED: Melatonin 3 MG TABLET PO PRN (17:14)
[2021-05-05] MEDS ORDERED: Dextrose Gel 15 GM/37.5 ML TUBE PO PRN ×2 (17:17)
[2021-05-05] MEDS ORDERED: D5% in Water 1,000 ML IVC PRN (17:17)
[2021-05-05] MEDS ORDERED: *HR* Dextrose 50 % in Water (Vial) 50 ML VIAL IVP PRN (17:17)
[2021-05-05] MEDS ORDERED: Furosemide 40 MG/4 ML VIAL IVP ONE (17:21)
[2021-05-05] MEDS ORDERED: Calcium Gluconate 1gm/50mL 1 GM/50 ML BAG IVPB ONE (17:28)
[2021-05-05 19:41] LABS: Hepatitis B Surface Antibody < 3.10 mIU/mL
[2021-05-05 19:51] LABS: Hepatitis B Surface Antigen Nonreactive (Nonreactive)
[2021-05-05] MEDS: Piperacillin/Tazobactam 3.375 GM in 0.9 % Sodium Chloride Mini Bag 100 ML IVPB SCH (20:55)
[2021-05-06] MEDS ORDERED: *HR* LORazepam 0.5 MG TABLET PO ONE (00:54)
[2021-05-06 02:02] LABS: Basophils # 0.1 K/mcL (0.0-0.2); Basophils % 0.6 %; Eosinophils # 0.1 K/mcL (0.0-0.6); Eosinophils % 0.9 %; Hematocrit 27.3 % (37.5-50.1); Hemoglobin 8.5 g/dL (12.9-16.9); Immature Granulocytes % 0.6 % (0-4); Lymphocytes # 0.6 K/mcL (0.6-4.6); Lymphocytes % 5.3 %; Mean Corpuscular HGB Conc 31.1 g/dL (31.6-35.5); Mean Corpuscular Hemoglobin 27.9 pg (28.0-33.3); Mean Corpuscular Volume 89.5 fL (83.0-100.0); Mean Platelet Volume 10.1 fL (9.4-12.4); Monocytes # 0.6 K/mcL (0.0-1.3); Neutrophils # 10.3 K/mcL (1.6-8.9); Platelet Count 451 K/mcL (140-400); Red Blood Count 3.05 M/mcL (4.19-5.50); Red Cell Distribution Width 16.1 % (11.5-14.5); Segmented Neutrophils % 87.6 %; White Blood Count 11.7 K/mcL (4.3-11.1)
[2021-05-06 02:20] LABS: Calcium 6.4 mg/dL (8.6-10.3)
[2021-05-06] MEDS ORDERED: *HR* LORazepam 2 MG/ML VIAL IVP ONE (05:00)
[2021-05-06] MEDS ORDERED: 0.9 % Sodium Chloride 250 ML IVC PRN (06:35)
[2021-05-06] MEDS ORDERED: 0.9 % Sodium Chloride 1,000 ML PRIME SCH (06:45)
[2021-05-06] MEDS: SODIUM ZIRCONIUM CYCLOSILICATE 5 GM POWD.PACK PO SCH (07:30)
[2021-05-06] MEDS: Piperacillin/Tazobactam 3.375 GM in 0.9 % Sodium Chloride Mini Bag 100 ML IVPB SCH ×2 (07:32→19:48)
[2021-05-06] MEDS: Insulin LISPRO 300 UNITS/3 ML VIAL SUBQ SCH ×3 (07:36→15:19)
[2021-05-06] MEDS ORDERED: *HR* Heparin 10,000 UNIT/10 ML VIAL IV PRN (11:16)
[2021-05-06] MEDS ORDERED: Perflutren Lipid Microsphere 1.3 ML in 0.9 % Sodium Chloride 8.7 ML IVP PRN (12:24)
[2021-05-06] MEDS: cloNIDine HCL 0.1 MG TABLET PO SCH ×3 (12:35→19:45)
[2021-05-06] MEDS: amLODIPine 5 MG TABLET PO SCH (12:45)
[2021-05-06] MEDS: Gabapentin 300 MG CAPSULE PO SCH ×2 (12:45→19:45)
[2021-05-06] MEDS ORDERED: (Sucroferric Oxyhydroxide [Velphoro] 500 MG Tab.Chew) PO SCH (15:00)
[2021-05-06] MEDS: Calcium Acetate 667 MG CAPSULE PO SCH (15:57)
[2021-05-07] MEDS: traZODone 50 MG TABLET PO PRN (02:53)
[2021-05-07 05:07] LABS: Hematocrit 27.3 % (37.5-50.1); Hemoglobin 8.7 g/dL (12.9-16.9); Mean Corpuscular HGB Conc 31.9 g/dL (31.6-35.5); Mean Corpuscular Hemoglobin 28.2 pg (28.0-33.3); Mean Corpuscular Volume 88.3 fL (83.0-100.0); Mean Platelet Volume 10.1 fL (9.4-12.4); Platelet Count 412 K/mcL (140-400); Red Blood Count 3.09 M/mcL (4.19-5.50); White Blood Count 9.5 K/mcL (4.3-11.1)
[2021-05-07 05:27] LABS: Calcium 6.7 mg/dL (8.6-10.3); Potassium 4.9 mEq/L (3.5-5.1)
[2021-05-07] MEDS: Levothyroxine 25 MCG TABLET PO SCH (06:22)
[2021-05-07] MEDS ORDERED: 0.9 % Sodium Chloride 250 ML IVC PRN (06:40)
[2021-05-07] MEDS: Insulin LISPRO 300 UNITS/3 ML VIAL SUBQ SCH ×3 (08:59→15:46)
[2021-05-07] MEDS: Gabapentin 300 MG CAPSULE PO SCH ×2 (09:18→20:40)
[2021-05-07] MEDS: amLODIPine 5 MG TABLET PO SCH (09:19)
[2021-05-07] MEDS: SODIUM ZIRCONIUM CYCLOSILICATE 5 GM POWD.PACK PO SCH (09:19)
[2021-05-07] MEDS: Calcium Acetate 667 MG CAPSULE PO SCH ×3 (09:19→15:46)
[2021-05-07] MEDS: cloNIDine HCL 0.1 MG TABLET PO SCH ×3 (09:19→20:40)
[2021-05-07] MEDS ORDERED: *HR* Heparin 10,000 UNIT/10 ML VIAL IV PRN (09:44)
[2021-05-07] MEDS: Piperacillin/Tazobactam 3.375 GM in 0.9 % Sodium Chloride Mini Bag 100 ML IVPB SCH (12:41)
[2021-05-07] MEDS ORDERED: *HR* FentaNYL (PF) 100 MCG/2 ML VIAL ONE (16:30)
[2021-05-07] MEDS ORDERED: *HR* Propofol 200 MG/20 ML VIAL IVP ONE (16:30)
[2021-05-07] MEDS ORDERED: *HR* Phenylephrine 10 MG/ML VIAL ONE (16:32)
[2021-05-07] MEDS ORDERED: Lidocaine -MPF 2% 2 ML VIAL ONE (16:34)
[2021-05-07] MEDS ORDERED: Heparin 1,000 UNITS/500 mL 500 ML ONE (16:36)
[2021-05-07] MEDS ORDERED: Albuterol 2.5 MG/3 ML NEBULIZER IH PRN (16:55)
[2021-05-07] MEDS ORDERED: Naloxone 0.4 MG/ML INJ IVP PRN (16:55)
[2021-05-07] MEDS ORDERED: Ondansetron 4 MG/2 ML VIAL IVP PRN (16:55)
[2021-05-07] MEDS ORDERED: *HR* FentaNYL (PF) 100 MCG/2 ML VIAL IVP PRN (16:55)
[2021-05-07] MEDS ORDERED: *HR* HYDROmorphone (PF) 1 MG/ML SYRINGE IVP PRN (16:55)
[2021-05-07] MEDS ORDERED: Nitroglycerin 0.4 MG TAB.SUBL SL PRN (16:55)
[2021-05-07] MEDS ORDERED: *HR* Succinylcholine 200 MG/10 ML VIAL IVP ONE (17:32)
[2021-05-07] MEDS ORDERED: *HR* Etomidate 40 MG/20 ML VIAL IVP ONE (17:32)
[2021-05-07] MEDS ORDERED: Ondansetron 4 MG/2 ML VIAL ONE (17:54)
[2021-05-08] MEDS: Piperacillin/Tazobactam 3.375 GM in 0.9 % Sodium Chloride Mini Bag 100 ML IVPB SCH ×2 (01:16→12:55)
[2021-05-08 03:29] LABS: Basophils % 0.3 %; Hematocrit 30.3 % (37.5-50.1); Immature Granulocytes % 0.5 % (0-4); Lymphocytes # 0.3 K/mcL (0.6-4.6); Lymphocytes % 3.3 %; Mean Corpuscular HGB Conc 29.7 g/dL (31.6-35.5); Mean Corpuscular Hemoglobin 27.4 pg (28.0-33.3); Mean Corpuscular Volume 92.4 fL (83.0-100.0); Mean Platelet Volume 10.3 fL (9.4-12.4); Monocytes # 0.5 K/mcL (0.0-1.3); Monocytes % 4.7 %; Neutrophils # 9.1 K/mcL (1.6-8.9); Platelet Count 388 K/mcL (140-400); Red Blood Count 3.28 M/mcL (4.19-5.50); Red Cell Distribution Width 15.9 % (11.5-14.5); Segmented Neutrophils % 91.2 %
[2021-05-08 03:50] LABS: Calcium 6.9 mg/dL (8.6-10.3); Potassium 5.6 mEq/L (3.5-5.1)
[2021-05-08] MEDS: Levothyroxine 25 MCG TABLET PO SCH (05:41)
[2021-05-08] MEDS ORDERED: 0.9 % Sodium Chloride 250 ML IVC PRN (06:52)
[2021-05-08] MEDS: cloNIDine HCL 0.1 MG TABLET PO SCH ×3 (09:13→21:04)
[2021-05-08] MEDS: Insulin LISPRO 300 UNITS/3 ML VIAL SUBQ SCH ×4 (09:13→15:56)
[2021-05-08] MEDS: Gabapentin 300 MG CAPSULE PO SCH ×2 (09:13→21:05)
[2021-05-08] MEDS: amLODIPine 5 MG TABLET PO SCH (09:13)
[2021-05-08] MEDS: Calcium Acetate 667 MG CAPSULE PO SCH ×3 (09:13→16:14)
[2021-05-08] MEDS: SODIUM ZIRCONIUM CYCLOSILICATE 5 GM POWD.PACK PO SCH (09:14)
[2021-05-08] MEDS ORDERED: *HR* Heparin 10,000 UNIT/10 ML VIAL ONE (12:18)
[2021-05-08] MEDS: *HR* Glimepiride 4 MG TABLET PO SCH (12:55)
[2021-05-08] MEDS: traZODone 50 MG TABLET PO PRN (21:04)
[2021-05-09] MEDS: Piperacillin/Tazobactam 3.375 GM in 0.9 % Sodium Chloride Mini Bag 100 ML IVPB SCH ×2 (00:43→11:39)
[2021-05-09] MEDS: Levothyroxine 25 MCG TABLET PO SCH (04:55)
[2021-05-09] MEDS ORDERED: 0.9 % Sodium Chloride 250 ML IVC PRN (06:48)
[2021-05-09] MEDS: Insulin LISPRO 300 UNITS/3 ML VIAL SUBQ SCH ×3 (07:01→14:57)
[2021-05-09 07:13] LABS: Basophils # 0.1 K/mcL (0.0-0.2); Basophils % 0.6 %; Eosinophils # 0.2 K/mcL (0.0-0.6); Eosinophils % 1.7 %; Hematocrit 26.6 % (37.5-50.1); Hemoglobin 8.2 g/dL (12.9-16.9); Immature Granulocytes % 0.4 % (0-4); Lymphocytes % 10.1 %; Mean Corpuscular HGB Conc 30.8 g/dL (31.6-35.5); Mean Corpuscular Hemoglobin 28.6 pg (28.0-33.3); Mean Corpuscular Volume 92.7 fL (83.0-100.0); Mean Platelet Volume 10.3 fL (9.4-12.4); Monocytes # 0.6 K/mcL (0.0-1.3); Monocytes % 5.8 %; Neutrophils # 7.9 K/mcL (1.6-8.9); Platelet Count 376 K/mcL (140-400); Red Blood Count 2.87 M/mcL (4.19-5.50); Red Cell Distribution Width 15.7 % (11.5-14.5); Segmented Neutrophils % 81.4 %; White Blood Count 9.7 K/mcL (4.3-11.1)
[2021-05-09 07:35] LABS: Calcium 7.1 mg/dL (8.6-10.3); Potassium 4.4 mEq/L (3.5-5.1)
[2021-05-09] MEDS: Calcium Acetate 667 MG CAPSULE PO SCH ×3 (09:03→16:07)
[2021-05-09] MEDS: amLODIPine 5 MG TABLET PO SCH (09:04)
[2021-05-09] MEDS: cloNIDine HCL 0.1 MG TABLET PO SCH ×3 (09:04→22:41)
[2021-05-09] MEDS: *HR* Glimepiride 4 MG TABLET PO SCH (09:04)
[2021-05-09] MEDS: SODIUM ZIRCONIUM CYCLOSILICATE 5 GM POWD.PACK PO SCH (09:04)
[2021-05-09] MEDS: Gabapentin 300 MG CAPSULE PO SCH ×2 (09:04→22:41)
[2021-05-09] MEDS ORDERED: *HR* Labetalol 20 MG/4 ML SYRINGE IVP PRN (14:16)
[2021-05-09] MEDS: traZODone 50 MG TABLET PO PRN (23:00)
[2021-05-10] MEDS: Piperacillin/Tazobactam 3.375 GM in 0.9 % Sodium Chloride Mini Bag 100 ML IVPB SCH ×2 (02:09→13:08)
[2021-05-10] MEDS: Levothyroxine 25 MCG TABLET PO SCH (06:37)
[2021-05-10 07:40] LABS: Calcium 7.1 mg/dL (8.6-10.3); Magnesium 1.7 mg/dL (1.6-2.6); Potassium 4.3 mEq/L (3.5-5.1)
[2021-05-10] MEDS: Calcium Acetate 667 MG CAPSULE PO SCH ×3 (07:40→17:20)
[2021-05-10] MEDS: *HR* Glimepiride 4 MG TABLET PO SCH (07:41)
[2021-05-10] MEDS: Gabapentin 300 MG CAPSULE PO SCH ×2 (07:41→21:25)
[2021-05-10] MEDS: amLODIPine 5 MG TABLET PO SCH (07:41)
[2021-05-10] MEDS: cloNIDine HCL 0.1 MG TABLET PO SCH ×3 (07:41→21:24)
[2021-05-10] MEDS: Insulin LISPRO 300 UNITS/3 ML VIAL SUBQ SCH ×3 (07:42→17:20)
[2021-05-10] MEDS: SODIUM ZIRCONIUM CYCLOSILICATE 5 GM POWD.PACK PO SCH (07:42)
[2021-05-10 09:32] LABS: Basophils # 0.1 K/mcL (0.0-0.2); Basophils % 0.9 %; Eosinophils # 0.2 K/mcL (0.0-0.6); Eosinophils % 1.9 %; Hematocrit 27.1 % (37.5-50.1); Hemoglobin 8.5 g/dL (12.9-16.9); Immature Granulocytes % 0.5 % (0-4); Lymphocytes # 0.8 K/mcL (0.6-4.6); Lymphocytes % 9.4 %; Mean Corpuscular HGB Conc 31.4 g/dL (31.6-35.5); Mean Corpuscular Volume 92.5 fL (83.0-100.0); Mean Platelet Volume 10.2 fL (9.4-12.4); Monocytes # 0.5 K/mcL (0.0-1.3); Monocytes % 5.6 %; Neutrophils # 7.2 K/mcL (1.6-8.9); Platelet Count 349 K/mcL (140-400); Red Blood Count 2.93 M/mcL (4.19-5.50); Red Cell Distribution Width 15.2 % (11.5-14.5); Segmented Neutrophils % 81.7 %; White Blood Count 8.8 K/mcL (4.3-11.1)
[2021-05-10] MEDS ORDERED: *HR* Heparin 10,000 UNIT/10 ML VIAL IV PRN (10:10)
[2021-05-10] MEDS ORDERED: 0.9 % Sodium Chloride 250 ML IVC PRN (10:10)
[2021-05-10] MEDS: hydrALAZINE 25 MG TABLET PO SCH ×2 (13:08→15:48)
[2021-05-11] MEDS: hydrALAZINE 25 MG TABLET PO SCH ×2 (00:15→08:02)
[2021-05-11] MEDS: traZODone 50 MG TABLET PO PRN (00:16)
[2021-05-11] MEDS: Piperacillin/Tazobactam 3.375 GM in 0.9 % Sodium Chloride Mini Bag 100 ML IVPB SCH ×2 (00:17→11:59)
[2021-05-11] MEDS: Levothyroxine 25 MCG TABLET PO SCH (06:17)
[2021-05-11] MEDS: Insulin LISPRO 300 UNITS/3 ML VIAL SUBQ SCH ×2 (07:33→11:25)
[2021-05-11] MEDS: amLODIPine 5 MG TABLET PO SCH (08:02)
[2021-05-11] MEDS: Calcium Acetate 667 MG CAPSULE PO SCH ×2 (08:02→11:33)
[2021-05-11] MEDS: *HR* Glimepiride 4 MG TABLET PO SCH (08:03)
[2021-05-11] MEDS: cloNIDine HCL 0.1 MG TABLET PO SCH (08:03)
[2021-05-11] MEDS: Gabapentin 300 MG CAPSULE PO SCH (08:03)
[2021-05-11] MEDS: SODIUM ZIRCONIUM CYCLOSILICATE 5 GM POWD.PACK PO SCH (08:12)
[2021-05-11 11:05] VITALS: BP 176/75
== END 2021-05-11 12:40 | disposition home or self-care (01) | DRG 981 ==
LOC: 2ANU 13:30 → EMEROOARM 13:30 → SUATTDRO 17:44 → 2ANU 19:14 → SUATTDRO 05-08 15:33
PROVIDERS: ADMIT Internal Medicine; ATTEND Internal Medicine

== ENCOUNTER 2021-05-13 15:43 | Observation (INO) ==
[2021-05-13 16:36] LABS: Basophils # 0.1 K/mcL (0.0-0.2); Basophils % 0.5 %; Eosinophils # 0.1 K/mcL (0.0-0.6); Eosinophils % 0.9 %; Hematocrit 32.4 % (37.5-50.1); Hemoglobin 9.8 g/dL (12.9-16.9); Immature Granulocytes % 0.7 % (0-4); Lymphocytes # 1.3 K/mcL (0.6-4.6); Lymphocytes % 8.7 %; Mean Corpuscular HGB Conc 30.2 g/dL (31.6-35.5); Mean Corpuscular Hemoglobin 27.5 pg (28.0-33.3); Mean Corpuscular Volume 90.8 fL (83.0-100.0); Mean Platelet Volume 10.3 fL (9.4-12.4); Monocytes # 0.5 K/mcL (0.0-1.3); Monocytes % 3.3 %; Platelet Count 406 K/mcL (140-400); Red Blood Count 3.57 M/mcL (4.19-5.50); Red Cell Distribution Width 15.5 % (11.5-14.5); Segmented Neutrophils % 85.9 %
[2021-05-13 16:39] LABS: White Blood Count 15.1 K/mcL (4.3-11.1)
[2021-05-13 16:58] LABS: Calcium 7.9 mg/dL (8.6-10.3); Potassium 3.2 mEq/L (3.5-5.1)
[2021-05-13 17:07] LABS: Troponin I 0.06 ng/mL (< 0.04)
[2021-05-13] MEDS ORDERED: Aspirin 81 MG TAB.CHEW PO ONE (18:15)
[2021-05-13] MEDS ORDERED: Furosemide 40 MG/4 ML VIAL IVP ONE (20:41)
[2021-05-14] MEDS ORDERED: Naloxone 0.4 MG/ML INJ IVP PRN
[2021-05-14] MEDS ORDERED: Ondansetron 4 MG/2 ML VIAL IVP PRN
[2021-05-14] MEDS ORDERED: Melatonin 3 MG TABLET PO PRN
[2021-05-14] MEDS ORDERED: Acetaminophen 325 MG TABLET PO PRN
[2021-05-14 02:41] LABS: Basophils # 0.1 K/mcL (0.0-0.2); Basophils % 0.5 %; Eosinophils # 0.3 K/mcL (0.0-0.6); Hematocrit 28.5 % (37.5-50.1); Immature Granulocytes % 0.4 % (0-4); Lymphocytes # 1.2 K/mcL (0.6-4.6); Mean Corpuscular HGB Conc 31.6 g/dL (31.6-35.5); Mean Corpuscular Hemoglobin 29.1 pg (28.0-33.3); Mean Corpuscular Volume 92.2 fL (83.0-100.0); Mean Platelet Volume 10.1 fL (9.4-12.4); Monocytes # 0.6 K/mcL (0.0-1.3); Monocytes % 4.4 %; Neutrophils # 10.7 K/mcL (1.6-8.9); Platelet Count 391 K/mcL (140-400); Red Blood Count 3.09 M/mcL (4.19-5.50); Red Cell Distribution Width 15.7 % (11.5-14.5); Segmented Neutrophils % 83.7 %; White Blood Count 12.8 K/mcL (4.3-11.1)
[2021-05-14 03:22] LABS: Albumin 2.5 g/dL (3.5-5.7); Albumin/Globulin Ratio 0.6 (1.1-2.2); Bilirubin,Total 0.2 mg/dL (0.3-1.0); Calcium 7.6 mg/dL (8.6-10.3); Globulin 4.2 g/dL (2.4-3.5); Magnesium 1.8 mg/dL (1.6-2.6); Phosphorous 3.7 mg/dL (2.7-4.5); Potassium 4.1 mEq/L (3.5-5.1); Total Protein 6.7 g/dL (6.4-8.9); Troponin I 0.05 ng/mL (< 0.04)
[2021-05-14] MEDS ORDERED: D5% in Water 1,000 ML IVC PRN (06:14)
[2021-05-14] MEDS ORDERED: Dextrose Gel 15 GM/37.5 ML TUBE PO PRN ×2 (06:14)
[2021-05-14] MEDS ORDERED: *HR* Dextrose 50 % in Water (Vial) 50 ML VIAL IVP PRN (06:14)
[2021-05-14] MEDS: Insulin LISPRO 300 UNITS/3 ML VIAL SUBQ SCH ×2 (07:41→11:15)
[2021-05-14] MEDS ORDERED: Doxycycline 100 MG CAPSULE PO SCH (09:00)
[2021-05-14] MEDS ORDERED: hydrALAZINE 25 MG TABLET PO SCH (09:10)
[2021-05-14] MEDS ORDERED: amLODIPine 5 MG TABLET PO SCH (09:15)
[2021-05-14] MEDS ORDERED: cloNIDine HCL 0.1 MG TABLET PO SCH (09:15)
[2021-05-14 10:30] VITALS: BP 185/110
[2021-05-14] MEDS ORDERED: *HR* OxyCODONE Immed Rel 5 MG TABLET PO PRN (11:15)
[2021-05-14] MEDS ORDERED: Nitroglycerin 0.4 MG TAB.SUBL SL PRN (11:15)
[2021-05-14 14:31] LABS: Bilirubin,Urine Negative (Negative); Blood,Urine Negative (Negative); Clarity,Urine Clear (Clear); Color,Urine Light-Yellow (Yellow); Glucose,Urine (UA) 500 mg/dL (Normal); Ketones,Urine Negative (Negative); Leukocyte Esterase,Urine Negative (Negative); Nitrite,Urine Negative (Negative); Protein,Urine >=300 mg/dL (Neg-Trace); RBC,Urine 0-3 per hpf (0-3); Squamous Epithelial Cell,Urine Few per hpf (None-Few); Urobilinogen,Urine Normal (Normal); WBC,Urine 0-3 per hpf (0-3)
[2021-05-14] MEDS ORDERED: Gabapentin 100 MG CAPSULE PO SCH (15:00)
[2021-05-14] MEDS ORDERED: Amoxicillin/Clavulanate 500 MG TABLET PO SCH (17:00)
[2021-05-14] MEDS ORDERED: *HR* Heparin 5,000 UNIT/ML VIAL SQ SCH (18:00)
[2021-05-14] MEDS ORDERED: Insulin LISPRO 300 UNITS/3 ML VIAL SUBQ SCH (21:00)
[2021-05-15] MEDS ORDERED: Levothyroxine 25 MCG TABLET PO SCH (06:30)
[2021-05-18] MEDS ORDERED: Ergocalciferol (VIT D2) 50,000 UNIT (1.25MG) CAP PO SCH (11:15)
== END 2021-05-14 15:02 | disposition home health service (06) ==
LOC: EMEROOARM 15:43 → 2NENU 15:43 → SUATTDRO 21:14 → 2NENU 22:55
PROVIDERS: ADMIT Internal Medicine; ATTEND Internal Medicine

== ENCOUNTER 2021-06-04 16:58 | Observation (INO) ==
[2021-06-04 17:51] LABS: Basophils # 0.1 K/mcL (0.0-0.2); Basophils % 0.5 %; Eosinophils # 0.1 K/mcL (0.0-0.6); Eosinophils % 1.4 %; Hematocrit 25.7 % (37.5-50.1); Hemoglobin 7.9 g/dL (12.9-16.9); Immature Granulocytes % 0.5 % (0-4); Lymphocytes % 9.6 %; Mean Corpuscular HGB Conc 30.7 g/dL (31.6-35.5); Mean Corpuscular Hemoglobin 28.5 pg (28.0-33.3); Mean Corpuscular Volume 92.8 fL (83.0-100.0); Mean Platelet Volume 10.2 fL (9.4-12.4); Monocytes # 0.6 K/mcL (0.0-1.3); Monocytes % 5.8 %; Neutrophils # 8.2 K/mcL (1.6-8.9); Platelet Count 342 K/mcL (140-400); Red Blood Count 2.77 M/mcL (4.19-5.50); Red Cell Distribution Width 19.2 % (11.5-14.5); Segmented Neutrophils % 82.2 %; White Blood Count 9.9 K/mcL (4.3-11.1)
[2021-06-04 18:07] LABS: Acetaminophen < 10 mcg/mL (10-20); Alanine Aminotransferase 20 Units/L (7-52); Albumin 3.1 g/dL (3.5-5.7); Albumin/Globulin Ratio 0.7 (1.1-2.2); Alkaline Phosphatase 111 Units/L (34-104); Aspartate Amino Transferase 22 Units/L (13-39); BUN/Creatinine Ratio 11 (6-26); Bilirubin,Direct 0.1 mg/dL (0.0-0.2); Bilirubin,Indirect 0.2 mg/dL (0.0-1.0); Bilirubin,Total 0.3 mg/dL (0.3-1.0); Blood Urea Nitrogen 74 mg/dL (6-20); Calcium 7.8 mg/dL (8.6-10.3); Carbon Dioxide 20 mEq/L (23-29); Chloride 103 mEq/L (98-107); Chol/HDL Ratio 1.9 (0-4.9); Cholesterol 102 mg/dL (< 200); Estimated Average Glucose 169 mg/dl; Ethanol < 10 mg/dL (Less than 10); Globulin 4.6 g/dL (2.4-3.5); Glucose 118 mg/dL (70-105); HDL Cholesterol 54 mg/dL (40-59); Hemoglobin A1C 7.5 %; LDL Cholesterol,Calculated 36 mg/dL (< 100); Osmolality,Calculated 307 (280-300); Potassium 4.3 mEq/L (3.5-5.1); Salicylate < 2.5 mg/dL (15.0-30.0); Sodium 137 mEq/L (136-145); Total Protein 7.7 g/dL (6.4-8.9); Triglycerides 61 mg/dL (< 150); eGFR For African Americans 11 (> 60); eGFR For Non-African Americans 9 (> 60)
[2021-06-04 18:18] LABS: Thyroid Stimulating Hormone 4.896 mcIU/mL (0.340-5.600)
[2021-06-04] MEDS ORDERED: Ondansetron 4 MG/2 ML VIAL IVP PRN (20:19)
[2021-06-04] MEDS ORDERED: Naloxone 0.4 MG/ML INJ IVP PRN (20:19)
[2021-06-04] MEDS ORDERED: Acetaminophen 325 MG TABLET PO PRN (20:19)
[2021-06-04] MEDS ORDERED: D5% in Water 1,000 ML IVC PRN (20:42)
[2021-06-04] MEDS ORDERED: Dextrose Gel 15 GM/37.5 ML TUBE PO PRN ×2 (20:42)
[2021-06-04] MEDS ORDERED: *HR* Dextrose 50 % in Water (Vial) 50 ML VIAL IVP PRN (20:42)
[2021-06-04 21:03] LABS: Immature Reticulocyte % 20.3 % (11.0-38.0); Retculocyte # 0.06 M/mcL (0.05-0.10); Reticulocyte % 2.1 % (1.6-2.8)
[2021-06-04 21:07] LABS: % Iron Saturation 13 % (20-55); Iron 31 mcg/dL (65-175); Transferrin 172 mg/dL (203-362)
[2021-06-04 21:25] LABS: Ferritin 737 ng/mL (20-250)
[2021-06-04 21:34] LABS: Folate 11.2 ng/mL (3.0-16.0)
[2021-06-05] MEDS: Insulin LISPRO 300 UNITS/3 ML VIAL SUBQ SCH ×4 (00:18→17:08)
[2021-06-05 06:03] LABS: Hematocrit 29.2 % (37.5-50.1); Mean Corpuscular HGB Conc 30.8 g/dL (31.6-35.5); Mean Corpuscular Hemoglobin 28.8 pg (28.0-33.3); Mean Corpuscular Volume 93.6 fL (83.0-100.0); Mean Platelet Volume 10.2 fL (9.4-12.4); Platelet Count 380 K/mcL (140-400); Red Blood Count 3.12 M/mcL (4.19-5.50); Red Cell Distribution Width 19.3 % (11.5-14.5); White Blood Count 13.1 K/mcL (4.3-11.1)
[2021-06-05 06:30] LABS: Potassium 4.3 mEq/L (3.5-5.1)
[2021-06-05] MEDS ORDERED: 0.9 % Sodium Chloride 250 ML IVC PRN (07:15)
[2021-06-05 08:29] LABS: Hepatitis B Surface Antibody < 3.10 mIU/mL
[2021-06-05 08:40] LABS: Hepatitis B Surface Antigen Nonreactive (Nonreactive)
[2021-06-05] MEDS ORDERED: *HR* Heparin 10,000 UNIT/10 ML VIAL IV PRN (10:50)
[2021-06-05 13:54] LABS: Magnesium 1.8 mg/dL (1.6-2.6); Phosphorous 1.9 mg/dL (2.7-4.5)
[2021-06-05] MEDS: Gabapentin 100 MG CAPSULE PO SCH ×2 (15:39→20:52)
[2021-06-05] MEDS: cloNIDine HCL 0.1 MG TABLET PO SCH ×2 (15:39→20:52)
[2021-06-05] MEDS: Furosemide 40 MG TABLET PO SCH (15:39)
[2021-06-05] MEDS: hydrALAZINE 25 MG TABLET PO SCH (15:39)
[2021-06-06] MEDS: hydrALAZINE 25 MG TABLET PO SCH ×2 (00:45→07:50)
[2021-06-06 06:05] LABS: Hematocrit 25.5 % (37.5-50.1); Hemoglobin 7.9 g/dL (12.9-16.9); Mean Corpuscular Hemoglobin 28.7 pg (28.0-33.3); Mean Corpuscular Volume 92.7 fL (83.0-100.0); Mean Platelet Volume 10.2 fL (9.4-12.4); Platelet Count 311 K/mcL (140-400); Red Blood Count 2.75 M/mcL (4.19-5.50); Red Cell Distribution Width 19.3 % (11.5-14.5); White Blood Count 9.9 K/mcL (4.3-11.1)
[2021-06-06 06:27] LABS: Calcium 7.3 mg/dL (8.6-10.3); Potassium 4.6 mEq/L (3.5-5.1)
[2021-06-06] MEDS ORDERED: Levothyroxine 25 MCG TABLET PO SCH (06:30)
[2021-06-06 07:08] VITALS: BP 167/77; PULSE 76; TEMP 98.1; O2SAT 99
[2021-06-06] MEDS: cloNIDine HCL 0.1 MG TABLET PO SCH (07:50)
[2021-06-06] MEDS: Gabapentin 100 MG CAPSULE PO SCH (07:51)
[2021-06-06] MEDS: Insulin LISPRO 300 UNITS/3 ML VIAL SUBQ SCH ×2 (07:51→11:43)
[2021-06-06] MEDS: Furosemide 40 MG TABLET PO SCH (07:51)
[2021-06-06] MEDS ORDERED: amLODIPine 5 MG TABLET PO SCH (09:00)
== END 2021-06-06 13:29 | disposition home health service (06) ==
LOC: EMEROOARM 16:58 → 2ANU 16:58 → SUATTDRO 20:13 → 2ANU 21:23
PROVIDERS: ADMIT Internal Medicine; ATTEND Family Medicine

== ENCOUNTER 2021-07-01 15:02 | Observation (INO) ==
[2021-07-01 15:56] LABS: Basophils # 0.1 K/mcL (0.0-0.2); Basophils % 0.9 %; Eosinophils # 0.1 K/mcL (0.0-0.6); Eosinophils % 0.9 %; Hematocrit 28.9 % (37.5-50.1); Immature Granulocytes % 0.2 % (0-4); Lymphocytes # 0.9 K/mcL (0.6-4.6); Lymphocytes % 9.6 %; Mean Corpuscular HGB Conc 31.1 g/dL (31.6-35.5); Mean Corpuscular Hemoglobin 29.3 pg (28.0-33.3); Mean Corpuscular Volume 94.1 fL (83.0-100.0); Mean Platelet Volume 10.4 fL (9.4-12.4); Monocytes # 0.4 K/mcL (0.0-1.3); Monocytes % 4.9 %; Neutrophils # 7.5 K/mcL (1.6-8.9); Platelet Count 395 K/mcL (140-400); Red Blood Count 3.07 M/mcL (4.19-5.50); Red Cell Distribution Width 17.4 % (11.5-14.5); Segmented Neutrophils % 83.5 %
[2021-07-01 15:57] LABS: VBG HCO3 27 mEq/L (21-27); VBG PCO2 42 mmHg (41-51); VBG PH 7.41 pH Units (7.32-7.42); VBG PO2 110 mmHg (25-50)
[2021-07-01 16:17] LABS: Bacteria,Urine Few per hpf (None-Few); Bilirubin,Urine Negative (Negative); Blood,Urine Negative (Negative); Clarity,Urine Clear (Clear); Color,Urine Light-Yellow (Yellow); Glucose,Urine (UA) 300 mg/dL (Normal); Ketones,Urine Negative (Negative); Leukocyte Esterase,Urine Negative (Negative); Mucus,Urine Few per lpf (None-Few); Nitrite,Urine Negative (Negative); PH,Urine 7.5 pH Units (5.0-8.0); Protein,Urine >=300 mg/dL (Neg-Trace); RBC,Urine 0-3 per hpf (0-3); Specific Gravity,Urine 1.013 (1.010-1.025); Urobilinogen,Urine Normal (Normal)
[2021-07-01 16:28] LABS: Amphetamine Screen,Urine Negative ng/mL (Cutoff=1000); Barbiturate Screen,Urine Negative ng/mL (Cutoff=200); Benzodiazepines Screen,Urine Negative ng/mL (Cutoff=200); Cannabinoid Screen,Urine Negative ng/mL (Cutoff = 50); Cocaine Screen,Urine Negative ng/mL (Cutoff= 300); Opiate Screen,Urine Negative ng/mL (Cutoff=300); Phencyclidine Screen,Urine Negative ng/mL (Cutoff=25)
[2021-07-01 16:34] LABS: Influenza A PCR Negative (Negative); Influenza B PCR Negative (Negative); Resp. Syncytial Virus PCR Negative (Negative)
[2021-07-01 16:34] LABS: Alanine Aminotransferase 17 Units/L (7-52); Albumin 3.1 g/dL (3.5-5.7); Albumin/Globulin Ratio 0.7 (1.1-2.2); Alkaline Phosphatase 136 Units/L (34-104); Aspartate Amino Transferase 16 Units/L (13-39); BUN/Creatinine Ratio 10 (6-26); Bilirubin,Direct 0.1 mg/dL (0.0-0.2); Bilirubin,Indirect 0.3 mg/dL (0.0-1.0); Bilirubin,Total 0.4 mg/dL (0.3-1.0); Blood Urea Nitrogen 40 mg/dL (6-20); Calcium 8.9 mg/dL (8.6-10.3); Carbon Dioxide 25 mEq/L (23-29); Chloride 101 mEq/L (98-107); Globulin 4.3 g/dL (2.4-3.5); Glucose 75 mg/dL (70-105); Lipase 6 Units/L (11-82); Osmolality,Calculated 292 (280-300); Potassium 3.7 mEq/L (3.5-5.1); Sodium 137 mEq/L (136-145); Total Protein 7.4 g/dL (6.4-8.9); Troponin I < 0.03 ng/mL (< 0.04); eGFR For African Americans 20 (> 60); eGFR For Non-African Americans 16 (> 60)
[2021-07-01 16:40] LABS: SARS-CoV-2 by PCR (In House) Negative (Negative)
[2021-07-01 19:27] LABS: Ethanol < 10 mg/dL (Less than 10)
[2021-07-01] MEDS ORDERED: *HR* LORazepam 2 MG/ML VIAL IVP ONE (20:20)
[2021-07-01] MEDS ORDERED: *HR* LORazepam 2 MG/ML VIAL ONE (20:20)
[2021-07-01] MEDS ORDERED: *HR* Dextrose 50 % in Water (Vial) 50 ML VIAL ONE (20:30)
[2021-07-01] MEDS ORDERED: Acetaminophen 325 MG TABLET PO PRN (20:32)
[2021-07-01] MEDS ORDERED: Naloxone 0.4 MG/ML INJ IVP PRN (20:32)
[2021-07-01] MEDS ORDERED: Dextrose Gel 15 GM/37.5 ML TUBE PO PRN ×2 (20:34)
[2021-07-01] MEDS ORDERED: D5% in Water 1,000 ML IVC PRN (20:34)
[2021-07-01] MEDS: *HR* Dextrose 50 % in Water (Vial) 50 ML VIAL IVP PRN (20:42)
[2021-07-01 21:15] LABS: ABG Base Excess 1 mEq/L (-2 to 3); ABG HCO3 26 mEq/L (21-27); ABG Oxygen Saturation 94 % (95-98); ABG PCO2 43 mmHg (35-45); ABG PH 7.39 pH Units (7.32-7.45); ABG PO2 72 mmHg (85-104); ABG TCO2 27 mEq/L (20-26)
[2021-07-01] MEDS: cefTRIAXone 1,000 MG in 0.9 % Sodium Chloride Mini Bag 100 ML IVPB SCH (22:13)
[2021-07-01] MEDS: Aspirin Enteric Coated 81 MG Tablet PO SCH (23:19)
[2021-07-02] MEDS: Insulin LISPRO 300 UNITS/3 ML VIAL SUBQ SCH ×5 (00:22→23:19)
[2021-07-02] MEDS: *HR* Dextrose 50 % in Water (Vial) 50 ML VIAL IVP PRN ×2 (00:30→03:24)
[2021-07-02] MEDS ORDERED: D10% in Water 500 ML IVC SCH (03:30)
[2021-07-02 05:45] LABS: Hematocrit 27.2 % (37.5-50.1); Hemoglobin 8.5 g/dL (12.9-16.9); Mean Corpuscular HGB Conc 31.3 g/dL (31.6-35.5); Mean Corpuscular Hemoglobin 29.6 pg (28.0-33.3); Mean Corpuscular Volume 94.8 fL (83.0-100.0); Mean Platelet Volume 10.3 fL (9.4-12.4); Platelet Count 390 K/mcL (140-400); Red Blood Count 2.87 M/mcL (4.19-5.50); Red Cell Distribution Width 17.3 % (11.5-14.5)
[2021-07-02 05:59] LABS: INR 1.2; Prothrombin Time 13.7 Seconds (9.4-12.1)
[2021-07-02 06:01] LABS: Activated Partial Thrombo Time 28.9 Seconds (26.0-36.0)
[2021-07-02 06:09] LABS: Calcium 8.2 mg/dL (8.6-10.3); Chol/HDL Ratio 1.8 (0-4.9); Magnesium 1.9 mg/dL (1.6-2.6); Potassium 4.2 mEq/L (3.5-5.1)
[2021-07-02 06:16] LABS: Thyroid Stimulating Hormone 4.393 mcIU/mL (0.340-5.600)
[2021-07-02 06:19] LABS: Estimated Average Glucose 169 mg/dl; Hemoglobin A1C 7.5 %
[2021-07-02 06:27] LABS: Folate 13.7 ng/mL (3.0-16.0)
[2021-07-02] MEDS ORDERED: *HR* Heparin 10,000 UNIT/10 ML VIAL IV PRN (08:05)
[2021-07-02] MEDS ORDERED: 0.9 % Sodium Chloride 250 ML IVC PRN (08:05)
[2021-07-02] MEDS: Aspirin Enteric Coated 81 MG Tablet PO SCH (08:58)
[2021-07-02] MEDS ORDERED: Nitroglycerin 0.4 MG TAB.SUBL SL PRN (13:37)
[2021-07-02] MEDS: Gabapentin 100 MG CAPSULE PO SCH ×2 (15:03→20:18)
[2021-07-02] MEDS: *HR* Heparin 5,000 UNIT/ML VIAL SQ SCH ×2 (15:03→20:18)
[2021-07-02] MEDS: cloNIDine HCL 0.1 MG TABLET PO SCH ×2 (15:03→20:18)
[2021-07-02] MEDS: hydrALAZINE 25 MG TABLET PO SCH ×2 (16:06→23:19)
[2021-07-02] MEDS: Furosemide 40 MG TABLET PO SCH (20:18)
[2021-07-02] MEDS: cefTRIAXone 1,000 MG in 0.9 % Sodium Chloride Mini Bag 100 ML IVPB SCH (20:19)
[2021-07-03 02:43] LABS: Hematocrit 25.9 % (37.5-50.1); Hemoglobin 8.2 g/dL (12.9-16.9); Mean Corpuscular HGB Conc 31.7 g/dL (31.6-35.5); Mean Corpuscular Hemoglobin 29.7 pg (28.0-33.3); Mean Corpuscular Volume 93.8 fL (83.0-100.0); Mean Platelet Volume 10.3 fL (9.4-12.4); Platelet Count 333 K/mcL (140-400); Red Blood Count 2.76 M/mcL (4.19-5.50); Red Cell Distribution Width 17.2 % (11.5-14.5); White Blood Count 8.2 K/mcL (4.3-11.1)
[2021-07-03 03:04] LABS: Calcium 7.9 mg/dL (8.6-10.3); Potassium 4.4 mEq/L (3.5-5.1)
[2021-07-03 03:26] LABS: Hepatitis B Surface Antibody < 3.10 mIU/mL
[2021-07-03 03:37] LABS: Hepatitis B Surface Antigen Nonreactive (Nonreactive)
[2021-07-03] MEDS: *HR* Heparin 5,000 UNIT/ML VIAL SQ SCH ×2 (05:56→14:48)
[2021-07-03] MEDS: Insulin LISPRO 300 UNITS/3 ML VIAL SUBQ SCH ×2 (05:56→12:15)
[2021-07-03] MEDS ORDERED: Levothyroxine 25 MCG TABLET PO SCH (06:30)
[2021-07-03 08:04] VITALS: PULSE 79; O2SAT 97
[2021-07-03] MEDS ORDERED: 0.9 % Sodium Chloride 250 ML IVC PRN (08:06)
[2021-07-03] MEDS ORDERED: *HR* Heparin 10,000 UNIT/10 ML VIAL IV PRN (08:06)
[2021-07-03] MEDS ORDERED: 0.9 % Sodium Chloride 1,000 ML PRIME SCH (08:15)
[2021-07-03] MEDS: Gabapentin 100 MG CAPSULE PO SCH ×2 (08:20→14:49)
[2021-07-03] MEDS ORDERED: amLODIPine 5 MG TABLET PO SCH (09:00)
[2021-07-03] MEDS: hydrALAZINE 25 MG TABLET PO SCH ×2 (12:14→14:49)
[2021-07-03] MEDS: Furosemide 40 MG TABLET PO SCH (12:14)
[2021-07-03] MEDS: cloNIDine HCL 0.1 MG TABLET PO SCH ×2 (12:14→14:49)
[2021-07-03 14:29] VITALS: BP 155/89; TEMP 98.7
== END 2021-07-03 15:22 | disposition home or self-care (01) ==
LOC: EMEROOARM 15:02 → 2ANU 15:02 → SUATTDRO 18:42 → 2ANU 18:47
PROVIDERS: ADMIT Internal Medicine; ATTEND Family Medicine

== ENCOUNTER 2021-10-20 13:08 | Observation (INO) ==
[2021-10-20] MEDS ORDERED: Naloxone 0.4 MG/ML INJ IVP PRN (16:51)
[2021-10-20] MEDS ORDERED: Mag Hydrox/Al Hydrox/Simeth 30 ML UDC PO PRN (16:51)
[2021-10-20] MEDS ORDERED: Melatonin 3 MG TABLET PO PRN (16:51)
[2021-10-20] MEDS ORDERED: *HR* Dextrose 50 % in Water (Syg) 50 ML SYRINGE IVP PRN (17:29)
[2021-10-20] MEDS ORDERED: Dextrose Gel 15 GM/37.5 ML TUBE PO PRN ×2 (17:29)
[2021-10-20] MEDS ORDERED: D5% in Water 1,000 ML IVC PRN (17:29)
[2021-10-20 19:19] VITALS: BP 178/98; PULSE 74; TEMP 97.6; O2SAT 89
[2021-10-20] MEDS ORDERED: cloNIDine HCL 0.1 MG TABLET PO SCH (21:00)
[2021-10-20] MEDS ORDERED: Insulin LISPRO 300 UNITS/3 ML VIAL SUBQ SCH (21:00)
[2021-10-20 21:25] LABS: RBC,Pleural Fluid < 2000 RBC/mcL
[2021-10-20 22:08] LABS: Appearance of Pleural Fl Clear (Clear); Basophils,Pleural Fluid 0 %; Eosinophils,Pleural Fluid 0 %
[2021-10-21] MEDS ORDERED: hydrALAZINE 25 MG TABLET PO SCH
[2021-10-21 00:11] LABS: Total Protein,Pleural Fluid 2.5 g/dL
[2021-10-21] MEDS ORDERED: Levothyroxine 25 MCG TABLET PO SCH (06:30)
[2021-10-21] MEDS ORDERED: Insulin LISPRO 300 UNITS/3 ML VIAL SUBQ SCH (07:30)
[2021-10-21] MEDS ORDERED: amLODIPine 5 MG TABLET PO SCH (09:00)
[2021-10-23 01:25] LABS: Fluid Source for Cholesterol PLEURAL FLUID; Fluid Source for Triglycerides PLEURAL FLUID
[2021-10-23 12:15] LABS: Cholesterol,Body Fluid 15 mg/dL; Triglycerides,Body Fluid <9 mg/dL
== END 2021-10-20 21:58 | disposition home or self-care (01) ==
LOC: 2ANU → SUATTDRO 15:54
PROVIDERS: ADMIT Family Medicine; ATTEND Family Medicine

== ENCOUNTER 2021-11-02 21:31 | Observation (INO) ==
[2021-11-02] MEDS ORDERED: Isovue-370 500 ML BOTTLE IVP ONE (22:18)
[2021-11-02 23:51] LABS: INR 1.2; Prothrombin Time 13.5 Seconds (9.4-12.1)
[2021-11-02 23:53] LABS: Basophils # 0.1 K/mcL (0.0-0.2); Basophils % 0.8 %; Eosinophils # 0.1 K/mcL (0.0-0.6); Hematocrit 35.5 % (37.5-50.1); Hemoglobin 11.3 g/dL (12.9-16.9); Immature Granulocytes % 0.3 % (0-4); Lymphocytes # 0.7 K/mcL (0.6-4.6); Lymphocytes % 8.5 %; Mean Corpuscular HGB Conc 31.8 g/dL (31.6-35.5); Mean Corpuscular Hemoglobin 28.7 pg (28.0-33.3); Mean Corpuscular Volume 90.1 fL (83.0-100.0); Mean Platelet Volume 11.5 fL (9.4-12.4); Monocytes # 0.4 K/mcL (0.0-1.3); Monocytes % 5.5 %; Neutrophils # 6.6 K/mcL (1.6-8.9); Platelet Count 231 K/mcL (140-400); Red Blood Count 3.94 M/mcL (4.19-5.50); Red Cell Distribution Width 18.5 % (11.5-14.5); Segmented Neutrophils % 83.9 %; White Blood Count 7.8 K/mcL (4.3-11.1)
[2021-11-02 23:54] LABS: Activated Partial Thrombo Time 33.5 Seconds (26.0-36.0)
[2021-11-03 00:09] LABS: Albumin 3.6 g/dL (3.5-5.7); Albumin/Globulin Ratio 0.9 (1.1-2.2); Bilirubin,Total 0.5 mg/dL (0.3-1.0); Calcium 8.1 mg/dL (8.6-10.3); Potassium 4.2 mEq/L (3.5-5.1); Total Protein 7.6 g/dL (6.4-8.9)
[2021-11-03] MEDS ORDERED: Isovue-370 500 ML BOTTLE IVP ONE (00:14)
[2021-11-03 00:16] LABS: Troponin I 0.05 ng/mL (< 0.04)
[2021-11-03] MEDS ORDERED: Furosemide 40 MG/4 ML VIAL IVP ONE (02:48)
[2021-11-03 05:06] LABS: Influenza A PCR Negative (Negative); Influenza B PCR Negative (Negative); Resp. Syncytial Virus PCR Negative (Negative)
[2021-11-03 05:08] LABS: SARS-CoV-2 by PCR (In House) Negative (Negative)
[2021-11-03 05:17] LABS: ABG Base Excess -5 mEq/L (-2 to 3); ABG HCO3 20 mEq/L (21-27); ABG Oxygen Saturation 88 % (95-98); ABG PCO2 36 mmHg (35-45); ABG PH 7.35 pH Units (7.32-7.45); ABG PO2 58 mmHg (85-104); ABG TCO2 21 mEq/L (20-26)
[2021-11-03] MEDS ORDERED: Naloxone 0.4 MG/ML INJ IVP PRN (05:31)
[2021-11-03] MEDS ORDERED: Melatonin 3 MG TABLET PO PRN (05:31)
[2021-11-03] MEDS ORDERED: *HR* Dextrose 50 % in Water (Syg) 50 ML SYRINGE IVP PRN (06:33)
[2021-11-03] MEDS ORDERED: Dextrose Gel 15 GM/37.5 ML TUBE PO PRN ×2 (06:33)
[2021-11-03] MEDS ORDERED: D5% in Water 1,000 ML IVC PRN (06:33)
[2021-11-03] MEDS: cloNIDine HCL 0.1 MG TABLET PO SCH ×2 (07:37→14:53)
[2021-11-03] MEDS ORDERED: Albumin 25% 25gram/100mL 25 GM/100 ML IV.SOLN IVPB PRN (07:47)
[2021-11-03] MEDS ORDERED: 0.9 % Sodium Chloride 250 ML IVC PRN (07:47)
[2021-11-03] MEDS: Insulin LISPRO 300 UNITS/3 ML VIAL SUBQ SCH ×2 (07:59→13:13)
[2021-11-03] MEDS ORDERED: 0.9 % Sodium Chloride 1,000 ML PRIME SCH (08:00)
[2021-11-03] MEDS ORDERED: amLODIPine 5 MG TABLET PO SCH (09:00)
[2021-11-03 11:56] LABS: Hepatitis B Surface Antibody < 3.10 mIU/mL
[2021-11-03 12:07] LABS: Hepatitis B Surface Antigen Nonreactive (Nonreactive)
[2021-11-03] MEDS ORDERED: *HR* Heparin 10,000 UNIT/10 ML VIAL IV PRN (13:21)
[2021-11-03 15:33] VITALS: PULSE 83
[2021-11-03] MEDS ORDERED: hydrALAZINE 25 MG TABLET PO SCH (16:00)
[2021-11-03] MEDS ORDERED: *HR* Heparin 5,000 UNIT/ML VIAL SQ SCH (18:00)
[2021-11-03 18:48] VITALS: TEMP 97.7; O2SAT 94
[2021-11-03 19:21] VITALS: BP 192/90
[2021-11-03] MEDS ORDERED: Insulin LISPRO 300 UNITS/3 ML VIAL SUBQ SCH (21:00)
[2021-11-04] MEDS ORDERED: Levothyroxine 25 MCG TABLET PO SCH (06:30)
[2021-11-04] MEDS ORDERED: amLODIPine 5 MG TABLET PO SCH (09:00)
== END 2021-11-03 19:30 | disposition home or self-care (01) ==
LOC: 3NENU 21:31 → EMEROOARM 21:31 → MERGE 11-03 04:04 → SUATTDRO 11-03 04:04 → 3NENU 11-03 04:05
PROVIDERS: ADMIT Internal Medicine; ATTEND General Practice

== ENCOUNTER 2021-12-06 22:10 | Observation (INO) ==
[2021-12-06 23:18] LABS: Basophils % 0.6 %; Eosinophils # 0.1 K/mcL (0.0-0.6); Eosinophils % 1.3 %; Hematocrit 33.4 % (37.5-50.1); Hemoglobin 10.4 g/dL (12.9-16.9); Immature Granulocytes % 0.3 % (0-4); Lymphocytes # 0.6 K/mcL (0.6-4.6); Lymphocytes % 8.8 %; Mean Corpuscular HGB Conc 31.1 g/dL (31.6-35.5); Mean Corpuscular Hemoglobin 28.5 pg (28.0-33.3); Mean Corpuscular Volume 91.5 fL (83.0-100.0); Mean Platelet Volume 10.9 fL (9.4-12.4); Monocytes # 0.4 K/mcL (0.0-1.3); Monocytes % 6.6 %; Neutrophils # 5.2 K/mcL (1.6-8.9); Platelet Count 221 K/mcL (140-400); Red Blood Count 3.65 M/mcL (4.19-5.50); Red Cell Distribution Width 18.4 % (11.5-14.5); Segmented Neutrophils % 82.4 %; White Blood Count 6.3 K/mcL (4.3-11.1)
[2021-12-06 23:40] LABS: Calcium 8.4 mg/dL (8.6-10.3); Potassium 3.6 mEq/L (3.5-5.1)
[2021-12-06 23:47] LABS: Troponin I 0.09 ng/mL (< 0.04)
[2021-12-07] MEDS ORDERED: amLODIPine 5 MG TABLET PO ONE (03:23)
[2021-12-07] MEDS ORDERED: cloNIDine HCL 0.1 MG TABLET PO ONE (03:24)
[2021-12-07] MEDS ORDERED: Ondansetron 4 MG/2 ML VIAL IVP PRN (04:44)
[2021-12-07] MEDS ORDERED: Naloxone 0.4 MG/ML INJ IVP PRN (04:44)
[2021-12-07 05:38] LABS: Influenza A PCR Negative (Negative); Influenza B PCR Negative (Negative); Resp. Syncytial Virus PCR Negative (Negative)
[2021-12-07 05:41] LABS: SARS-CoV-2 by PCR (In House) Positive (Negative)
[2021-12-07] MEDS ORDERED: *HR* Heparin 5,000 UNIT/ML VIAL SQ SCH (06:00)
[2021-12-07 06:35] LABS: Albumin 3.6 g/dL (3.5-5.7); Calcium 8.6 mg/dL (8.6-10.3); Magnesium 1.9 mg/dL (1.6-2.6); Phosphorous 5.3 mg/dL (2.7-4.5); Potassium 3.7 mEq/L (3.5-5.1)
[2021-12-07 06:36] LABS: Albumin 3.6 g/dL (3.5-5.7); Albumin/Globulin Ratio 0.9 (1.1-2.2); Bilirubin,Direct 0.1 mg/dL (0.0-0.2); Bilirubin,Indirect 0.3 mg/dL (0.0-1.0); Bilirubin,Total 0.4 mg/dL (0.3-1.0); Globulin 4.2 g/dL (2.4-3.5); Total Protein 7.8 g/dL (6.4-8.9)
[2021-12-07] MEDS ORDERED: Dexamethasone Sodium Phos/PF 10 MG/ML VIAL IVP SCH (08:09)
[2021-12-07 11:40] VITALS: BP 170/81; PULSE 80; TEMP 98.2; O2SAT 96
== END 2021-12-07 17:45 | disposition home or self-care (01) ==
LOC: 2ANU 22:10 → EMEROOARM 22:10 → 2ANU 12-07 05:02
PROVIDERS: ADMIT Internal Medicine; ATTEND Internal Medicine

== ENCOUNTER 2022-07-21 16:14 | Observation (INO) ==
[2022-07-21] MEDS ORDERED: Iopamidol - 370 500 ML MLS IVP ONE (21:19)
[2022-07-21 22:09] LABS: Basophils % 0.5 %; Eosinophils # 0.1 K/mcL (0.0-0.6); Hematocrit 34.4 % (37.5-50.1); Hemoglobin 10.8 g/dL (12.9-16.9); Immature Granulocytes % 0.4 % (0-4); Lymphocytes # 0.3 K/mcL (0.6-4.6); Lymphocytes % 3.9 %; Mean Corpuscular HGB Conc 31.4 g/dL (31.6-35.5); Mean Corpuscular Hemoglobin 30.2 pg (28.0-33.3); Mean Corpuscular Volume 96.1 fL (83.0-100.0); Mean Platelet Volume 11.3 fL (9.4-12.4); Monocytes # 0.4 K/mcL (0.0-1.3); Monocytes % 4.8 %; Neutrophils # 7.5 K/mcL (1.6-8.9); Platelet Count 255 K/mcL (140-400); Red Blood Count 3.58 M/mcL (4.19-5.50); Red Cell Distribution Width 17.1 % (11.5-14.5); Segmented Neutrophils % 89.4 %; White Blood Count 8.4 K/mcL (4.3-11.1)
[2022-07-21 22:17] LABS: INR 1.2; Prothrombin Time 13.9 Seconds (9.4-12.1)
[2022-07-21 22:31] LABS: Albumin 3.5 g/dL (3.5-5.7); Albumin/Globulin Ratio 0.9 (1.1-2.2); Bilirubin,Direct 0.1 mg/dL (0.0-0.2); Bilirubin,Indirect 0.4 mg/dL (0.0-1.0); Bilirubin,Total 0.5 mg/dL (0.3-1.0); Calcium 8.8 mg/dL (8.6-10.3); Globulin 4.1 g/dL (2.4-3.5); Potassium 4.2 mEq/L (3.5-5.1); Total Protein 7.6 g/dL (6.4-8.9)
[2022-07-21 22:44] LABS: Thyroid Stimulating Hormone 5.447 mcIU/mL (0.340-5.600)
[2022-07-21 23:50] LABS: VBG HCO3 26 mEq/L (21-27); VBG PCO2 45 mmHg (41-51); VBG PH 7.37 pH Units (7.32-7.42); VBG PO2 52 mmHg (25-50)
[2022-07-22 00:10] LABS: Troponin I 0.03 ng/mL (< 0.04)
[2022-07-22] MEDS ORDERED: Melatonin 3 MG TABLET PO PRN (00:35)
[2022-07-22] MEDS ORDERED: Naloxone 0.4 MG/ML INJ IVP PRN (00:35)
[2022-07-22] MEDS ORDERED: Ondansetron 4 MG/2 ML VIAL IVP PRN (00:35)
[2022-07-22] MEDS ORDERED: Acetaminophen 325 MG TABLET PO PRN (00:35)
[2022-07-22 03:46] LABS: Hematocrit 32.5 % (37.5-50.1); Hemoglobin 10.1 g/dL (12.9-16.9); Mean Corpuscular HGB Conc 31.1 g/dL (31.6-35.5); Mean Corpuscular Hemoglobin 29.6 pg (28.0-33.3); Mean Corpuscular Volume 95.3 fL (83.0-100.0); Mean Platelet Volume 11.2 fL (9.4-12.4); Platelet Count 235 K/mcL (140-400); Red Blood Count 3.41 M/mcL (4.19-5.50); Red Cell Distribution Width 17.1 % (11.5-14.5); White Blood Count 7.4 K/mcL (4.3-11.1)
[2022-07-22 03:56] LABS: INR 1.3; Prothrombin Time 14.3 Seconds (9.4-12.1)
[2022-07-22 04:06] LABS: Calcium 8.3 mg/dL (8.6-10.3); Magnesium 2.2 mg/dL (1.6-2.6); Phosphorous 3.8 mg/dL (2.7-4.5); Potassium 4.2 mEq/L (3.5-5.1)
[2022-07-22] MEDS ORDERED: D5% in Water 1,000 ML IVC PRN (04:06)
[2022-07-22] MEDS ORDERED: *HR* Dextrose 50 % in Water (Syg) 50 ML SYRINGE IVP PRN (04:06)
[2022-07-22] MEDS ORDERED: Dextrose Gel 15 GM/37.5 ML TUBE PO PRN ×2 (04:06)
[2022-07-22] MEDS: Levothyroxine 25 MCG TABLET PO SCH (06:04)
[2022-07-22] MEDS: cloNIDine HCL 0.1 MG TABLET PO SCH ×3 (08:56→20:21)
[2022-07-22] MEDS: Insulin LISPRO 300 UNITS/3 ML VIAL SUBQ SCH ×3 (08:59→16:59)
[2022-07-22] MEDS ORDERED: amLODIPine 5 MG TABLET PO SCH (09:00)
[2022-07-22 09:29] LABS: Hepatitis B Surface Antibody < 3.10 mIU/mL
[2022-07-22 09:40] LABS: Hepatitis B Surface Antigen Nonreactive (Nonreactive)
[2022-07-22 15:48] LABS: Total Protein,Peritoneal Fluid 2.5 g/dL
[2022-07-22] MEDS ORDERED: Insulin DETEMIR 100 UNIT/ML X5UNITS SUBQ SCH (21:00)
[2022-07-22] MEDS ORDERED: Insulin LISPRO 300 UNITS/3 ML VIAL SUBQ SCH (21:00)
[2022-07-22] MEDS ORDERED: *HR* Heparin 5,000 UNIT/ML VIAL SQ SCH (22:00)
[2022-07-23 04:03] VITALS: BP 160/79; PULSE 79; TEMP 97.9; O2SAT 91
[2022-07-23] MEDS: Levothyroxine 25 MCG TABLET PO SCH (05:25)
[2022-07-23] MEDS: Insulin LISPRO 300 UNITS/3 ML VIAL SUBQ SCH (08:31)
[2022-07-25 01:28] LABS: Fluid Source for Albumin PERITONEAL FL
== END 2022-07-23 09:14 | disposition home or self-care (01) ==
LOC: EMEROOARM 16:14 → 2NENU 16:14 → SUATTDRO 07-22 00:39 → 2NENU 07-22 01:50
PROVIDERS: ADMIT Internal Medicine; ATTEND Internal Medicine

== ENCOUNTER 2022-08-05 08:21 | Observation (INO) ==
[2022-08-05 10:38] LABS: Basophils # 0.1 K/mcL (0.0-0.2); Basophils % 0.8 %; Eosinophils # 0.1 K/mcL (0.0-0.6); Eosinophils % 0.8 %; Hematocrit 22.5 % (37.5-50.1); Hemoglobin 6.6 g/dL (12.9-16.9); Immature Granulocytes % 0.4 % (0-4); Lymphocytes # 0.6 K/mcL (0.6-4.6); Lymphocytes % 7.4 %; Mean Corpuscular HGB Conc 29.3 g/dL (31.6-35.5); Mean Corpuscular Hemoglobin 30.1 pg (28.0-33.3); Mean Corpuscular Volume 102.7 fL (83.0-100.0); Mean Platelet Volume 10.9 fL (9.4-12.4); Monocytes # 0.5 K/mcL (0.0-1.3); Monocytes % 7.1 %; Neutrophils # 6.4 K/mcL (1.6-8.9); Platelet Count 238 K/mcL (140-400); Red Blood Count 2.19 M/mcL (4.19-5.50); Red Cell Distribution Width 20.8 % (11.5-14.5); Segmented Neutrophils % 83.5 %; White Blood Count 7.6 K/mcL (4.3-11.1)
[2022-08-05 10:59] LABS: Calcium 6.9 mg/dL (8.6-10.3); Potassium 3.8 mEq/L (3.5-5.1)
[2022-08-05 11:02] LABS: INR 1.3; Prothrombin Time 14.7 Seconds (9.4-12.1)
[2022-08-05 11:05] LABS: Troponin I 0.1 ng/mL (< 0.04)
[2022-08-05 11:16] LABS: Immature Reticulocyte % 32.3 % (11.0-38.0); Retculocyte # 0.16 M/mcL (0.05-0.10); Reticulocyte % 7.1 % (1.6-2.8)
[2022-08-05] MEDS ORDERED: Ondansetron 4 MG/2 ML VIAL IVP PRN (14:01)
[2022-08-05] MEDS ORDERED: Acetaminophen 325 MG TABLET PO PRN (14:01)
[2022-08-05] MEDS ORDERED: Naloxone 0.4 MG/ML INJ IVP PRN (14:01)
[2022-08-05] MEDS ORDERED: D5% in Water 1,000 ML IVC PRN (14:02)
[2022-08-05] MEDS ORDERED: *HR* Dextrose 50 % in Water (Syg) 50 ML SYRINGE IVP PRN (14:02)
[2022-08-05] MEDS ORDERED: Dextrose Gel 15 GM/37.5 ML TUBE PO PRN ×2 (14:02)
[2022-08-05] MEDS ORDERED: 0.9 % Sodium Chloride 250 ML ONE (15:03)
[2022-08-05] MEDS: cloNIDine HCL 0.1 MG TABLET PO SCH ×2 (16:06→21:26)
[2022-08-05 20:43] LABS: Appearance of Peritoneal Fl BLOODY (Clear)
[2022-08-05 20:50] LABS: Basophils,Peritoneal Fluid 0 %; Eosinophils,Peritoneal Fluid 0 %
[2022-08-05] MEDS: Pregabalin 75 MG CAPSULE PO SCH (21:26)
[2022-08-06 03:21] LABS: Hemoglobin 7.4 g/dL (12.9-16.9); Mean Corpuscular HGB Conc 30.8 g/dL (31.6-35.5); Mean Corpuscular Hemoglobin 30.3 pg (28.0-33.3); Mean Corpuscular Volume 98.4 fL (83.0-100.0); Platelet Count 240 K/mcL (140-400); Red Blood Count 2.44 M/mcL (4.19-5.50); Red Cell Distribution Width 20.4 % (11.5-14.5); White Blood Count 8.2 K/mcL (4.3-11.1)
[2022-08-06 03:38] LABS: Calcium 6.7 mg/dL (8.6-10.3); Potassium 4.2 mEq/L (3.5-5.1)
[2022-08-06] MEDS ORDERED: Levothyroxine 25 MCG TABLET PO SCH (06:30)
[2022-08-06 07:11] VITALS: PULSE 74; O2SAT 90
[2022-08-06] MEDS ORDERED: Ethyl Chloride Spray Bottle (104 SPRAY/BOTTLE) TP PRN (07:49)
[2022-08-06] MEDS ORDERED: 0.9 % Sodium Chloride 250 ML IVC PRN (07:49)
[2022-08-06] MEDS ORDERED: 0.9 % Sodium Chloride 2,000 ML PRIME SCH (08:00)
[2022-08-06] MEDS: cloNIDine HCL 0.1 MG TABLET PO SCH (08:01)
[2022-08-06] MEDS: Pregabalin 75 MG CAPSULE PO SCH (08:01)
[2022-08-06] MEDS ORDERED: SODIUM ZIRCONIUM CYCLOSILICATE 5 GM POWD.PACK PO SCH (09:00)
[2022-08-06] MEDS ORDERED: amLODIPine 5 MG TABLET PO SCH (09:00)
[2022-08-06 09:28] LABS: Troponin I 0.09 ng/mL (< 0.04)
[2022-08-06 09:46] LABS: Folate 13.9 ng/mL (3.0-16.0)
[2022-08-06 14:04] VITALS: BP 143/84; TEMP 98.4
== END 2022-08-06 15:47 | disposition home or self-care (01) ==
LOC: 3NENU 08:21 → EMEROOARM 08:21 → SUATTDRO 13:24 → 3NENU 15:54
PROVIDERS: ADMIT Internal Medicine; ATTEND Internal Medicine

== ENCOUNTER 2022-08-15 13:50 | Inpatient (IN) ==
[2022-08-15 14:42] LABS: Basophils % 0.4 %; Eosinophils # 0.1 K/mcL (0.0-0.6); Eosinophils % 1.2 %; Hematocrit 30.2 % (37.5-50.1); Hemoglobin 9.3 g/dL (12.9-16.9); Immature Granulocytes % 0.5 % (0-4); Lymphocytes # 0.5 K/mcL (0.6-4.6); Lymphocytes % 5.4 %; Mean Corpuscular HGB Conc 30.8 g/dL (31.6-35.5); Mean Corpuscular Volume 100.7 fL (83.0-100.0); Mean Platelet Volume 10.3 fL (9.4-12.4); Monocytes # 0.5 K/mcL (0.0-1.3); Monocytes % 5.6 %; Neutrophils # 7.4 K/mcL (1.6-8.9); Platelet Count 241 K/mcL (140-400); Red Cell Distribution Width 17.5 % (11.5-14.5); Segmented Neutrophils % 86.9 %; White Blood Count 8.5 K/mcL (4.3-11.1)
[2022-08-15 15:01] LABS: Calcium 8.6 mg/dL (8.6-10.3); Potassium 4.5 mEq/L (3.5-5.1)
[2022-08-15] MEDS ORDERED: cefTRIAXone 1,000 MG in 0.9 % Sodium Chloride 10 ML IVP ONE (16:02)
[2022-08-15] MEDS ORDERED: Azithromycin 500 MG in 0.9 % Sodium Chloride 250 ML IVPB ONE (16:03)
[2022-08-15 17:15] LABS: Influenza A PCR Negative (Negative); Influenza B PCR Negative (Negative); Resp. Syncytial Virus PCR Negative (Negative)
[2022-08-15 17:16] LABS: SARS-CoV-2 by PCR (In House) Negative (Negative)
[2022-08-16] MEDS ORDERED: Ondansetron 4 MG/2 ML VIAL IVP PRN (02:58)
[2022-08-16] MEDS ORDERED: Naloxone 0.4 MG/ML INJ IVP PRN (02:58)
[2022-08-16] MEDS ORDERED: Melatonin 3 MG TABLET PO PRN (02:58)
[2022-08-16] MEDS ORDERED: D5% in Water 1,000 ML IVC PRN (05:15)
[2022-08-16] MEDS ORDERED: *HR* Dextrose 50 % in Water (Syg) 50 ML SYRINGE IVP PRN (05:15)
[2022-08-16] MEDS ORDERED: Dextrose Gel 15 GM/37.5 ML TUBE PO PRN ×2 (05:15)
[2022-08-16 05:29] LABS: Hematocrit 29.2 % (37.5-50.1); Hemoglobin 8.9 g/dL (12.9-16.9); Mean Corpuscular HGB Conc 30.5 g/dL (31.6-35.5); Mean Corpuscular Hemoglobin 30.4 pg (28.0-33.3); Mean Corpuscular Volume 99.7 fL (83.0-100.0); Mean Platelet Volume 10.4 fL (9.4-12.4); Platelet Count 272 K/mcL (140-400); Red Blood Count 2.93 M/mcL (4.19-5.50); Red Cell Distribution Width 17.2 % (11.5-14.5); White Blood Count 7.9 K/mcL (4.3-11.1)
[2022-08-16 05:41] LABS: INR 1.2; Prothrombin Time 13.5 Seconds (9.4-12.1)
[2022-08-16 05:46] LABS: BUN/Creatinine Ratio 10 (6-26); Blood Urea Nitrogen 61 mg/dL (6-20); Calcium 8.3 mg/dL (8.6-10.3); Carbon Dioxide 26 mEq/L (23-29); Chloride 99 mEq/L (98-107); Glucose 102 mg/dL (70-105); Lactate Dehydrogenase 181 Units/L (140-271); Osmolality,Calculated 299 (280-300); Potassium 4.4 mEq/L (3.5-5.1); Sodium 136 mEq/L (136-145)
[2022-08-16] MEDS: Insulin LISPRO 300 UNITS/3 ML VIAL SUBQ SCH ×3 (09:10→17:16)
[2022-08-16] MEDS: cefTRIAXone 1,000 MG in 0.9 % Sodium Chloride 20 ML IVP SCH (09:11)
[2022-08-16] MEDS: Azithromycin 500 MG in 0.9 % Sodium Chloride 250 ML IVPB SCH (09:12)
[2022-08-16] MEDS ORDERED: Ipratropium/Albuterol Neb 3 ML IH PRN (15:36)
[2022-08-16 17:53] LABS: RBC,Pleural Fluid < 2000 RBC/mcL
[2022-08-16 18:03] LABS: Appearance of Pleural Fl Clear (Clear)
[2022-08-16 18:12] LABS: Glucose,Pleural Fluid 144 mg/dL (No Ref Range); LDH,Pleural Fluid 61 Units/L (No Ref Range); Total Protein,Pleural Fluid < 2.0 g/dL
[2022-08-16 18:57] LABS: Basophils,Pleural Fluid 0 %; Eosinophils,Pleural Fluid 0 %
[2022-08-17] MEDS ORDERED: *HR* Labetalol 20 MG/4 ML SYRINGE IVP ONE (00:08)
[2022-08-17 06:18] LABS: Hematocrit 31.4 % (37.5-50.1); Hemoglobin 9.6 g/dL (12.9-16.9); Mean Corpuscular HGB Conc 30.6 g/dL (31.6-35.5); Mean Corpuscular Hemoglobin 30.1 pg (28.0-33.3); Mean Corpuscular Volume 98.4 fL (83.0-100.0); Mean Platelet Volume 10.6 fL (9.4-12.4); Platelet Count 269 K/mcL (140-400); Red Blood Count 3.19 M/mcL (4.19-5.50); Red Cell Distribution Width 16.9 % (11.5-14.5); White Blood Count 9.7 K/mcL (4.3-11.1)
[2022-08-17 06:42] LABS: Albumin 3.3 g/dL (3.5-5.7); Calcium 8.4 mg/dL (8.6-10.3); Potassium 5.6 mEq/L (3.5-5.1)
[2022-08-17] MEDS: Insulin LISPRO 300 UNITS/3 ML VIAL SUBQ SCH ×3 (07:49→16:04)
[2022-08-17] MEDS ORDERED: Ethyl Chloride Spray Bottle (104 SPRAY/BOTTLE) TP PRN (08:03)
[2022-08-17] MEDS ORDERED: 0.9 % Sodium Chloride 250 ML IVC PRN (08:03)
[2022-08-17] MEDS ORDERED: 0.9 % Sodium Chloride 2,000 ML PRIME SCH (08:15)
[2022-08-17] MEDS ORDERED: *HR* Labetalol 20 MG/4 ML SYRINGE IVP PRN (08:21)
[2022-08-17] MEDS: cefTRIAXone 1,000 MG in 0.9 % Sodium Chloride 20 ML IVP SCH (08:54)
[2022-08-17] MEDS: Azithromycin 500 MG in 0.9 % Sodium Chloride 250 ML IVPB SCH (09:01)
[2022-08-17] MEDS: Acetaminophen 325 MG TABLET PO PRN ×2 (11:18→20:14)
[2022-08-17] MEDS ORDERED: Heparin 1,000 UNITS/500 mL 500 ML ONE (13:21)
[2022-08-17] MEDS ORDERED: Lidocaine/EPI 1:100k 1% 50 ML VIAL ONE (13:21)
[2022-08-17] MEDS ORDERED: *HR* FentaNYL (PF) 100 MCG/2 ML VIAL IVP ONE (13:43)
[2022-08-17] MEDS ORDERED: *HR* Midazolam HCl 2 MG/2 ML VIAL IVP ONE (13:43)
[2022-08-17] MEDS ORDERED: *HR* Heparin 5,000 UNIT/ML VIAL ONE (14:09)
[2022-08-17] MEDS ORDERED: Nitroglycerin 0.4 MG TAB.SUBL SL PRN (14:35)
[2022-08-17] MEDS: PrednisoLONE Acetate 1% Opth 5 ML BOTTLE BOTH EYES SCH ×2 (15:02→20:15)
[2022-08-17] MEDS: cloNIDine HCL 0.1 MG TABLET PO SCH ×2 (15:02→20:15)
[2022-08-17] MEDS: Sucroferric Oxyhydroxide [Velphoro] 500 MG Tab.Chew PO SCH (15:03)
[2022-08-17] MEDS: Cholecalciferol (D-3) 1,000 UNIT (25MCG) TABLET PO SCH (20:15)
[2022-08-17] MEDS: Pregabalin 75 MG CAPSULE PO SCH (20:15)
[2022-08-17] MEDS: *HR* Heparin 5,000 UNIT/ML VIAL SQ SCH (21:34)
[2022-08-18] MEDS ORDERED: Haloperidol Lactate 5 MG/ML VIAL IVP ONE (05:45)
[2022-08-18] MEDS: *HR* Heparin 5,000 UNIT/ML VIAL SQ SCH ×3 (06:01→21:10)
[2022-08-18] MEDS: Levothyroxine 25 MCG TABLET PO SCH (06:01)
[2022-08-18] MEDS ORDERED: 0.9 % Sodium Chloride 250 ML IVC PRN (08:13)
[2022-08-18] MEDS ORDERED: *HR* Heparin 10,000 UNIT/10 ML VIAL IV PRN (08:13)
[2022-08-18] MEDS: Insulin LISPRO 300 UNITS/3 ML VIAL SUBQ SCH ×3 (08:40→18:12)
[2022-08-18] MEDS: amLODIPine 5 MG TABLET PO SCH (08:41)
[2022-08-18] MEDS: cloNIDine HCL 0.1 MG TABLET PO SCH ×3 (08:41→21:12)
[2022-08-18] MEDS: Cholecalciferol (D-3) 1,000 UNIT (25MCG) TABLET PO SCH ×2 (08:41→21:10)
[2022-08-18] MEDS: Pregabalin 75 MG CAPSULE PO SCH ×2 (08:41→21:10)
[2022-08-18] MEDS: PrednisoLONE Acetate 1% Opth 5 ML BOTTLE BOTH EYES SCH ×4 (08:42→21:11)
[2022-08-18] MEDS: Azithromycin 500 MG in 0.9 % Sodium Chloride 250 ML IVPB SCH (08:42)
[2022-08-18] MEDS: SODIUM ZIRCONIUM CYCLOSILICATE 5 GM POWD.PACK PO SCH (08:43)
[2022-08-18] MEDS: cefTRIAXone 1,000 MG in 0.9 % Sodium Chloride 20 ML IVP SCH (08:43)
[2022-08-18] MEDS: Sucroferric Oxyhydroxide [Velphoro] 500 MG Tab.Chew PO SCH ×3 (08:44→18:13)
[2022-08-18] MEDS: Acetaminophen 325 MG TABLET PO PRN ×2 (09:09→18:27)
[2022-08-19] MEDS: *HR* Heparin 5,000 UNIT/ML VIAL SQ SCH ×2 (05:05→14:28)
[2022-08-19] MEDS: Levothyroxine 25 MCG TABLET PO SCH (05:05)
[2022-08-19] MEDS: SODIUM ZIRCONIUM CYCLOSILICATE 5 GM POWD.PACK PO SCH (08:10)
[2022-08-19] MEDS: Pregabalin 75 MG CAPSULE PO SCH (08:12)
[2022-08-19] MEDS: amLODIPine 5 MG TABLET PO SCH (08:12)
[2022-08-19] MEDS: Cholecalciferol (D-3) 1,000 UNIT (25MCG) TABLET PO SCH (08:12)
[2022-08-19] MEDS: PrednisoLONE Acetate 1% Opth 5 ML BOTTLE BOTH EYES SCH ×2 (08:13→14:28)
[2022-08-19] MEDS ORDERED: Azithromycin 250 MG TABLET PO SCH (09:00)
[2022-08-19] MEDS: Insulin LISPRO 300 UNITS/3 ML VIAL SUBQ SCH ×2 (09:02→12:12)
[2022-08-19] MEDS: cloNIDine HCL 0.1 MG TABLET PO SCH ×2 (09:02→14:29)
[2022-08-19] MEDS: Sucroferric Oxyhydroxide [Velphoro] 500 MG Tab.Chew PO SCH ×2 (09:02→12:12)
[2022-08-19 09:20] LABS: Hematocrit 28.9 % (37.5-50.1); Hemoglobin 8.8 g/dL (12.9-16.9); Mean Corpuscular HGB Conc 30.4 g/dL (31.6-35.5); Mean Corpuscular Hemoglobin 29.8 pg (28.0-33.3); Mean Platelet Volume 10.2 fL (9.4-12.4); Platelet Count 239 K/mcL (140-400); Red Blood Count 2.95 M/mcL (4.19-5.50); Red Cell Distribution Width 16.4 % (11.5-14.5); White Blood Count 5.9 K/mcL (4.3-11.1)
[2022-08-19 09:34] LABS: Albumin 2.8 g/dL (3.5-5.7); Calcium 7.8 mg/dL (8.6-10.3); Phosphorous 5.1 mg/dL (2.7-4.5); Potassium 4.2 mEq/L (3.5-5.1)
[2022-08-19] MEDS: cefTRIAXone 1,000 MG in 0.9 % Sodium Chloride 20 ML IVP SCH (10:35)
[2022-08-19 11:09] VITALS: BP 136/78; PULSE 71; TEMP 98.9; O2SAT 98
[2022-08-19 11:47] LABS: Albumin/Globulin Ratio 0.8 (1.1-2.2); Bilirubin,Direct 0.1 mg/dL (0.0-0.2); Bilirubin,Indirect 0.3 mg/dL (0.0-1.0); Bilirubin,Total 0.4 mg/dL (0.3-1.0); Globulin 3.3 g/dL (2.4-3.5); Total Protein 6.1 g/dL (6.4-8.9)
[2022-08-19 22:30] LABS: Fluid Source for Cholesterol PLEURAL FLUID
[2022-08-20 11:03] LABS: Cholesterol,Body Fluid 12 mg/dL
== END 2022-08-19 15:48 | disposition other institution (70) | DRG 314 ==
LOC: EMEROOARM 13:50 → 3NENU 13:50
PROVIDERS: ADMIT Internal Medicine; ATTEND Internal Medicine